=== PATIENT | male | born 1935 | race Caucasian/White ===

== ENCOUNTER 2016-09-25 23:30 | Emergency (ER) | payer MEDICARE, BC ==
[2016-09-25 23:37] VITALS: RESP 18
--- NOTE | 2016-09-26 00:12 | ED ---
[id number] 4d pain in chest & both arms Time Seen by Provider: 09/25/16 23:41 Source: patient, RN notes reviewed Mode of arrival: wheelchair Limitations: no limitations - History of Present Illness Initial Comments: This patient is an 80-year-old man who states that about 1-2 hours ago he was watching football game and experienced a "funny feeling" in his left upper chest. He is not able to characterize this well. He states that it was mild intensity, and lasted for a few minutes, probably less than 5. This feeling was accompanied by a feeling of numbness to both arms. He did not have any other associated symptoms. MD Complaint: chest pain Onset/Timin -: hour(s) Onset: during rest Pain Location: substernal Pain Radiation: RUE, LUE Severity: mild Quality: other Consistency: now resolved Improves With: nothing Worsens With: nothing - Related Data Home Medications Medication Instructions Recorded Confirmed Aspirin EC [Ecotrin Low Dose] 81 mg PO DAILY 05/04/14 09/25/16 Atorvastatin Calcium [Lipitor] 20 mg PO HS 05/04/14 09/25/16 Furosemide [Lasix] 20 mg PO DAILY 05/04/14 09/25/16 Nitroglycerin Sl Tabs [Nitrostat] 0.4 mg SUBLINGUAL Q5M PRN 05/04/14 09/25/16 Potassium Gluconate 99 mg PO DAILY 05/04/14 09/25/16 Acetaminophen Tab [Tylenol Tab] 500 mg PO BID PRN 12/14/15 09/25/16 Lisinopril [Prinivil] 10 mg PO DAILY 12/14/15 09/25/16 Atenolol [Tenormin] 12.5 mg PO DAILY 07/27/16 09/25/16 Mirabegron [Myrbetriq] 50 mg PO DAILY 09/25/16 09/25/16 Tamsulosin [Flomax] 0.4 mg PO DAILY 09/25/16 09/25/16 Previous Rx's Medication Instructions Recorded amLODIPine [Norvasc] 10 mg PO DAILY #30 tab 12/29/14 Allergies Allergy/AdvReac Type Severity Reaction Status Date / Time No Known Allergies Allergy Verified 09/25/16 23:37 Review of Systems ROS Statement: Those systems with pertinent positive or pertinent negative responses have been documented in the HPI. ROS Other: All systems not noted in ROS Statement are negative. Constitutional: Denies: fever, chills, weakness ENT: Denies: throat pain Respiratory: Denies: cough, dyspnea Cardiovascular: Reports: chest pain. Denies: palpitations, orthopnea, edema, syncope Gastrointestinal: Denies: abdominal pain, nausea, vomiting, melena, hematochezia Musculoskeletal: Denies: back pain Skin: Denies: rash Neurological: Denies: headache, weakness, numbness Past Medical History Past Medical History: Atrial Fibrillation, Coronary Artery Disease (CAD), Cancer , Hyperlipidemia, Hypertension, Pneumonia Additional Past Medical History / Comment(s): Other HX: Bladder cancer with recent scope with lesions removed and is to have TB virus instilled into his bladder starting December, ulloa's palsy, UTI in April 2014, pneumonia yrs ago. History of Any Multi-Drug Resistant Organisms: None Reported Past Surgical History: Appendectomy, Heart Catheterization, Heart Catheterization With Stent, Joint Replacement Additional Past Surgical History / Comment(s): 10/03/08 PTCA with stenting of LAD , partial LEFT KNEE REPLACEMENT, BLADDER SCOPE recently. Past Anesthesia/Blood Transfusion Reactions: No Reported Reaction Date of Last Stent Placement:: 10/03/08 Past Psychological History: No Psychological Hx Reported Additional Psychological History / Comment(s): Pt lives alone. He is independent. Pt drives a car. He uses no assistive devices and has no home health agencies coming into the home. Smoking Status: Former smoker Past Alcohol Use History: Rare Past Drug Use History: None Reported - Past Family History Father Family Medical History: Coronary Artery Disease (CAD), Myocardial Infarction ([place] ) (Father at age of 63 from myocardial infarction) Mother Family Medical History: CVA/TIA (Mother at age 65 from CVA) Brother(s) Family Medical History: Pulmonary Embolus (He had one brother who from pulmonary embolism at the age of 61 after knee surgery) Sister(s) Family Medical History: No Reported History (He had 3 sisters one of his sister from back trouble.) Daughter(s) Family Medical History: No Reported History (Patient has one daughter no major medical problems) Son(s) Family Medical History: No Reported History (Patient has one son no major medical problems.) General Exam Limitations: no limitations General appearance: alert, in no apparent distress Head exam: Present: atraumatic, normocephalic Eye exam: Present: normal appearance. Absent: scleral icterus, conjunctival injection Neck exam: Present: normal inspection Respiratory exam: Present: rales (Bilateral bases). Absent: respiratory distress, wheezes, rhonchi, stridor Cardiovascular Exam: Present: regular rate, normal rhythm, normal heart sounds. Absent: systolic murmur, diastolic murmur, rubs, gallop GI/Abdominal exam: Present: soft. Absent: distended, tenderness, guarding, rebound, mass Extremities exam: Present: normal inspection, normal capillary refill, pedal edema (Bilateral pitting edema to below the knee.). Absent: calf tenderness Back exam: Present: normal inspection. Absent: CVA tenderness (R), CVA tenderness (L) Neurological exam: Present: alert Skin exam: Present: warm, dry, intact, normal color. Absent: rash Course Vital Signs 09/25/16 09/26/16 09/26/16 23:34 00:30 01:42 Temperature 97.9 F 97.8 F Pulse Rate 60 66 61 Respiratory 18 18 18 Rate Blood Pressure 190/82 150/69 180/79 O2 Sat by Pulse 98 96 95 Oximetry Chest Pain MDM - MDM Patient's an 80-year-old man with what appears to be an anginal episode. I did recommend admission, but the patient is refusing, stating that he feels back at his baseline. He does agree to return should any symptoms recur and is going to follow-up with cardiology. Discussed risks of leaving at this point and patient aware and accepting of this. Disposition Clinical Impression: Angina pectoris Disposition: HOME SELF-CARE Condition: Fair Instructions: Angina (ED) Referrals: Jose Carlos Hicks MD [Primary Care Provider] - 1-2 days
[2016-09-26 00:15] LABS: Basophils % (A) 1 %; CH 30.4; CHCM 33.1; Eosinophils # (A) 0.1 k/uL (0-0.7); Eosinophils % (A) 1 %; HCT 35.4 % (39.0-53.0); HDW 2.56; HGB 11.6 gm/dL (13.0-17.5); Luc # (Auto) 0.09; Luc % (Auto) 2; Lymphocytes # (A) 0.9 k/uL (1.0-4.8); Lymphocytes % (A) 19 %; MCH 30.2 pg (25.0-35.0); MCHC 32.7 g/dL (31.0-37.0); MCV 92.1 fL (80.0-100.0); Mean Platelet Volume 7.7; Monocytes # (A) 0.4 k/uL (0-1.0); Monocytes % (A) 7 %; Neutrophils # (A) 3.4 k/uL (1.3-7.7); Neutrophils % (A) 70 %; RBC 3.84 m/uL (4.30-5.90); RDW 13.9 % (11.5-15.5); WBC 4.8 k/uL (3.8-10.6)
[2016-09-26 00:28] LABS: Appearance,Urine Clear (Clear); Bacteria,Urine Rare /hpf; Bilirubin,Urine Negative (Negative); Glucose,Urine (UA) Negative (Negative); Ketones,Urine Negative (Negative); Leukocyte Esterase,Urine Negative (Negative); Nitrite,Urine Negative (Negative); Particle Count 534; Protein,Urine Negative (Negative); RBC,Urine 8 /hpf (0-5); Specific Gravity,Urine 1.009 (1.001-1.035); Squamous Epithelial Cell,Urine <1 /hpf (0-4); UA Billing (MACRO vs. MICRO) MICRO; Urobilinogen,Urine <2.0 mg/dL (<2.0); WBC,Urine 6 /hpf (0-5)
[2016-09-26 00:30] LABS: Calcium 9.3 mg/dL (8.4-10.2); Magnesium 1.9 mg/dL (1.6-2.3); Potassium 4.6 mmol/L (3.5-5.1); Total Bilirubin 1.4 mg/dL (0.2-1.3); Total Protein 6.8 g/dL (6.3-8.2)
--- NOTE | 2016-09-26 00:33 | XR ---
EXAMINATION TYPE: XR chest 1V portable DATE OF EXAM: 09/26/2016 12:27 AM COMPARISON: 08-10 HISTORY: Chest pain TECHNIQUE: Single frontal view of the chest is obtained. FINDINGS: Heart is enlarged. There is no heart failure. Lungs are clear of consolidation. There is a calcified granuloma in the left midlung. There are no hilar masses. There is left axillary pacemaker with the lead tip in the right ventricle. IMPRESSION: Cardiomegaly. No active cardiopulmonary disease. No change.
[2016-09-26 00:42] LABS: INR 1.1 (<1.1); Partial Thromboplastin Time 23.6 sec (22.0-30.0); Prothrombin Time 10.6 sec (9.0-12.0)
[2016-09-26 00:54] LABS: Creatine Kinase MB 1.5 ng/mL (0.0-2.4); Troponin I 0.012 ng/mL (0.000-0.034)
[2016-09-26 01:43] VITALS: BP 180/79; PULSE 61; TEMP 97.8
== END 2016-09-26 01:43 | disposition home or self-care (01) ==
LOC: EC 23:30
DX: I25.119 Atherosclerotic heart disease of native coronary artery with unspecified angina pectoris (principal); I48.91 Unspecified atrial fibrillation; E78.5 Hyperlipidemia, unspecified; I10 Essential (primary) hypertension; Z79.82 Long term (current) use of aspirin; Z79.899 Other long term (current) drug therapy; Z87.891 Personal history of nicotine dependence; Z85.51 Personal history of malignant neoplasm of bladder; Z95.5 Presence of coronary angioplasty implant and graft
CPT/HCPCS: 36415; 71010; 80053; 81001; 82550; 82553; 83735; 84484; 85025; 85610; 85730; 93005; 99285

== ENCOUNTER 2016-10-02 11:53 | Observation (INO) | payer MEDICARE, BC ==
[2016-10-02 12:34] LABS: Basophils % (A) 0 %; CH 30.7; CHCM 33.2; Eosinophils % (A) 1 %; HDW 2.61; HGB 10.9 gm/dL (13.0-17.5); Luc # (Auto) 0.04; Luc % (Auto) 1; Lymphocytes # (A) 0.6 k/uL (1.0-4.8); Lymphocytes % (A) 13 %; MCH 29.8 pg (25.0-35.0); MCV 93.1 fL (80.0-100.0); Mean Platelet Volume 8.3; Monocytes # (A) 0.3 k/uL (0-1.0); Monocytes % (A) 7 %; Neutrophils # (A) 3.5 k/uL (1.3-7.7); Neutrophils % (A) 78 %; RBC 3.65 m/uL (4.30-5.90); RDW 13.9 % (11.5-15.5); WBC 4.5 k/uL (3.8-10.6); WBC (Perox) 4.46
[2016-10-02 12:39] LABS: INR 1.1 (<1.1); Partial Thromboplastin Time 24.1 sec (22.0-30.0); Prothrombin Time 10.8 sec (9.0-12.0)
[2016-10-02 12:41] LABS: ALT 27 U/L (21-72); AST 19 U/L (17-59); Alkaline Phosphatase 63 U/L (38-126); Amylase <30 U/L (30-110); Anion Gap 11 mmol/L; Blood Urea Nitrogen 22 mg/dL (9-20); Calcium 8.9 mg/dL (8.4-10.2); Carbon Dioxide 25 mmol/L (22-30); Chloride 108 mmol/L (98-107); Glucose 150 mg/dL (74-99); Magnesium 1.8 mg/dL (1.6-2.3); Non-African American GFR(MDRD) 42 (>60 ml/min/1.73 sqM); Potassium 4.4 mmol/L (3.5-5.1); Sodium 144 mmol/L (137-145); Total Bilirubin 1.6 mg/dL (0.2-1.3); Total Protein 6.3 g/dL (6.3-8.2)
--- NOTE | 2016-10-02 12:42 | ED ---
Chest Pain HPI - General Chief Complaint: Chest Pain Stated Complaint: CHEST PAIN Time Seen by Provider: 10/02/16 12:00 Source: patient, RN notes reviewed Mode of arrival: wheelchair Limitations: no limitations - History of Present Illness Initial Comments: This 80-year-old male with a history of heart disease atrial fibrillation presents with complaints of the onset of chest pain about one hour ago. It is gone now he states initially it was 2-4/10 severity now it's gone he denies any sweats fevers chills nausea vomiting sweats or other symptoms with it. He did state it was only a brief twinge of pain. MD Complaint: chest pain - Related Data Home Medications Medication Instructions Recorded Confirmed Aspirin EC [Ecotrin Low Dose] 81 mg PO DAILY 05/04/14 10/02/16 Atorvastatin Calcium [Lipitor] 20 mg PO HS 05/04/14 10/02/16 Furosemide [Lasix] 10 mg PO DAILY 05/04/14 10/02/16 Nitroglycerin Sl Tabs [Nitrostat] 0.4 mg SUBLINGUAL Q5M PRN 05/04/14 10/02/16 Potassium Gluconate 99 mg PO DAILY 05/04/14 10/02/16 Lisinopril [Prinivil] 10 mg PO DAILY 12/14/15 10/02/16 Atenolol [Tenormin] 12.5 mg PO DAILY 07/27/16 10/02/16 Mirabegron [Myrbetriq] 50 mg PO DAILY 09/25/16 10/02/16 Tamsulosin [Flomax] 0.4 mg PO DAILY 09/25/16 10/02/16 Previous Rx's Medication Instructions Recorded amLODIPine [Norvasc] 10 mg PO DAILY #30 tab 12/29/14 Allergies Allergy/AdvReac Type Severity Reaction Status Date / Time No Known Allergies Allergy Verified 10/02/16 12:30 Review of Systems ROS Statement: Those systems with pertinent positive or pertinent negative responses have been documented in the HPI. ROS Other: All systems not noted in ROS Statement are negative. EKG Findings - EKG Results: EKG: interpreted by KANDACE (Pacemaker rhythm 67 QRS duration 192 QT/QTC of 494/ 521 some artifact is present no acute changes) Past Medical History Past Medical History: Atrial Fibrillation, Coronary Artery Disease (CAD), Cancer , Chest Pain / Angina, Hyperlipidemia, Hypertension, Pneumonia Additional Past Medical History / Comment(s): Other HX: Bladder cancer with recent scope with lesions removed and is to have TB virus instilled into his bladder starting December, ulloa's palsy, UTI in April 2014, pneumonia yrs ago. History of Any Multi-Drug Resistant Organisms: None Reported Past Surgical History: Appendectomy, Heart Catheterization, Heart Catheterization With Stent, Joint Replacement, Pacemaker Additional Past Surgical History / Comment(s): 10/03/08 PTCA with stenting of LAD , partial LEFT KNEE REPLACEMENT, BLADDER SCOPE recently. Past Anesthesia/Blood Transfusion Reactions: No Reported Reaction Date of Last Stent Placement:: 10/03/08 Past Psychological History: No Psychological Hx Reported Additional Psychological History / Comment(s): Pt lives alone. He is independent. Pt drives a car. He uses no assistive devices and has no home health agencies coming into the home. Smoking Status: Former smoker Past Alcohol Use History: Rare Past Drug Use History: None Reported - Past Family History Father Family Medical History: Coronary Artery Disease (CAD), Myocardial Infarction ([place] ) (Father at age of 63 from myocardial infarction) Mother Family Medical History: CVA/TIA (Mother at age 65 from CVA) Brother(s) Family Medical History: Pulmonary Embolus (He had one brother who from pulmonary embolism at the age of 61 after knee surgery) Sister(s) Family Medical History: No Reported History (He had 3 sisters one of his sister from back trouble.) Daughter(s) Family Medical History: No Reported History (Patient has one daughter no major medical problems) Son(s) Family Medical History: No Reported History (Patient has one son no major medical problems.) General Exam - General Exam Comments Initial Comments: Is a well-developed well-nourished awake alert oriented history male Limitations: no limitations General appearance: alert, in no apparent distress Head exam: Present: atraumatic, normocephalic, normal inspection Eye exam: Present: normal appearance, PERRL, EOMI. Absent: scleral icterus, conjunctival injection, periorbital swelling ENT exam: Present: normal exam, mucous membranes moist Neck exam: Present: normal inspection. Absent: tenderness, meningismus, lymphadenopathy Respiratory exam: Present: normal lung sounds bilaterally. Absent: respiratory distress, wheezes, rales, rhonchi, stridor Cardiovascular Exam: Present: regular rate, normal rhythm, normal heart sounds. Absent: systolic murmur, diastolic murmur, rubs, gallop, clicks GI/Abdominal exam: Present: soft, normal bowel sounds. Absent: distended, tenderness, guarding, rebound, rigid Extremities exam: Present: normal inspection, full ROM, normal capillary refill. Absent: tenderness, pedal edema, joint swelling, calf tenderness Back exam: Present: normal inspection Neurological exam: Present: alert, oriented X3, CN II-XII intact Psychiatric exam: Present: normal affect, normal mood Skin exam: Present: warm, dry, intact, normal color. Absent: rash Course Vital Signs 10/02/16 10/02/16 11:58 13:25 Pulse Rate 59 L 61 Respiratory 16 18 Rate Blood Pressure 184/76 156/71 O2 Sat by Pulse 96 97 Oximetry - Reevaluation(s) Reevaluation #1: 10/02/16 13:34 Review the x-ray shows no acute findings patient does have chronic stable findings. Chest Pain MDM - MDM I did review the x-ray report no acute findings patient will be admitted I did discuss the case with the hospitalist. Patient will be admitted with cardiology consultation he does request Dr. Anderson who he has seen before he currently is pain-free. Disposition Clinical Impression: Unstable angina pectoris, Chest pain Disposition: ADMITTED IP TO THIS [facility] Condition: Stable
--- NOTE | 2016-10-02 12:47 | XR ---
EXAMINATION TYPE: XR chest 2V DATE OF EXAM: 10/02/2016 12:34 PM COMPARISON: 09/25/2016 HISTORY: Weakness shortness of breath FINDINGS: The lungs are clear and there is no pneumothorax, pleural effusion, or focal pneumonia. Hypertrophic change of the spine. Marked cardiomegaly and cardiac device are stable. Calcified granul christi left upper lobe. Arthropathy shoulders. Stable mild thickening of the minor fissure. IMPRESSION: 1. Stable severe cardiomegaly.
[2016-10-02 12:54] LABS: Creatine Kinase 52 U/L (55-170)
[2016-10-02 13:08] LABS: Creatine Kinase MB 1.2 ng/mL (0.0-2.4); Troponin I <0.012 ng/mL (0.000-0.034)
[2016-10-02] MEDS ORDERED: NITROGLYCERIN SL TABS 0.4 MG TAB SUBLINGUAL PRN ×2 (15:39→15:42)
[2016-10-02] MEDS ORDERED: HEPARIN SODIUM,PORCINE 5,000 UNIT/ML 1 ML VIAL IV ONE (15:39)
[2016-10-02] MEDS: SODIUM CHLORIDE 0.9% 1,000 ML IV SCH (15:56)
[2016-10-02] MEDS: HEPARIN SODIUM,PORCINE/D5W PMX 25,000 UNIT in DEXTROSE/WATER 1 500ML.BAG IV SCH (15:57)
[2016-10-02] MEDS: NITROGLYCERIN OINT 1 INCH/GM PACKET TOPICAL SCH (19:32)
[2016-10-02 20:15] LABS: Creatine Kinase MB 1.1 ng/mL (0.0-2.4); Troponin I 0.013 ng/mL (0.000-0.034)
[2016-10-02] MEDS ORDERED: ATORVASTATIN 20 MG TAB PO SCH (21:00)
[2016-10-02 23:57] LABS: Troponin I 0.016 ng/mL (0.000-0.034)
[2016-10-03] MEDS: NITROGLYCERIN OINT 1 INCH/GM PACKET TOPICAL SCH ×3 (00:08→12:17)
[2016-10-03 07:41] LABS: Cholesterol 97 mg/dL (<200); HDL Cholesterol 50 mg/dL (40-60); Triglycerides 47 mg/dL (<150)
[2016-10-03 07:50] VITALS: RESP 18
[2016-10-03] MEDS ORDERED: AMINOPHYLLINE 500 MG/20 ML VIAL IV PRN (08:42)
[2016-10-03] MEDS ORDERED: REGADENOSON 0.4 MG/5 ML SYRINGE IV ONE (08:42)
--- NOTE | 2016-10-03 08:42 | P.CRDCN ---
History of Present Illness Consult date: 10/03/16 Chief complaint: chest pain History of present illness: This is a pleasant 80-year-old gentleman who sees Dr. VC Castro as an outpatient with a past medical history significant for CAD and prior stenting of the LAD was performed in 2008, hypertension, dyslipidemia, chronic atrial fibrillation, and permanent pacemaker implantation presented to the hospital complaining of chest discomfort. He was in his usual state of health until a week ago when he was shopping and started experiencing discomfort in the chest lasted about 10 minutes. He did good until yesterday when he experienced another episode of chest discomfort was similar feature. The EKG showed underlying atrial fibrillation with ventricular paced rhythm. The cardiac enzymes came in to be unremarkable. I am proceeding with a Lexiscan Cardiolite stress test and I will continue following up with him Past Medical History Past Medical History: Atrial Fibrillation, Coronary Artery Disease (CAD), Cancer , Chest Pain / Angina, Hyperlipidemia, Hypertension, Pneumonia Additional Past Medical History / Comment(s): Other HX: Bladder cancer with recent scope with lesions removed and is to have TB virus instilled into his bladder starting December, ulloa's palsy, UTI in April 2014, pneumonia yrs ago. History of Any Multi-Drug Resistant Organisms: None Reported Past Surgical History: Appendectomy, Heart Catheterization, Heart Catheterization With Stent, Joint Replacement, Pacemaker Additional Past Surgical History / Comment(s): 10/03/08 PTCA with stenting of LAD , partial LEFT KNEE REPLACEMENT, BLADDER SCOPE recently. Past Anesthesia/Blood Transfusion Reactions: No Reported Reaction Date of Last Stent Placement:: 10/03/08 Type of Cardiac Device: Permanent Pacemaker Device Placement Date:: 2015 Past Psychological History: No Psychological Hx Reported Additional Psychological History / Comment(s): Pt lives alone. He is independent. Pt drives a car. He uses no assistive devices and has no home health agencies coming into the home. Smoking Status: Former smoker Past Alcohol Use History: Rare Past Drug Use History: None Reported - Past Family History Father Family Medical History: Coronary Artery Disease (CAD), Myocardial Infarction ([place] ) Mother Family Medical History: CVA/TIA Brother(s) Family Medical History: Pulmonary Embolus Sister(s) Family Medical History: No Reported History Daughter(s) Family Medical History: No Reported History Son(s) Family Medical History: No Reported History Medications and Allergies Home Medications Medication Instructions Recorded Confirmed Type Aspirin EC [Ecotrin Low Dose] 81 mg PO DAILY 05/04/14 10/02/16 History Atorvastatin Calcium [Lipitor] 20 mg PO HS 05/04/14 10/02/16 History Furosemide [Lasix] 10 mg PO DAILY 05/04/14 10/02/16 History Nitroglycerin Sl Tabs [Nitrostat] 0.4 mg SUBLINGUAL Q5M PRN 05/04/14 10/02/16 History Potassium Gluconate 99 mg PO DAILY 05/04/14 10/02/16 History Lisinopril [Prinivil] 10 mg PO DAILY 12/14/15 10/02/16 History Atenolol [Tenormin] 12.5 mg PO DAILY 07/27/16 10/02/16 History Mirabegron [Myrbetriq] 50 mg PO DAILY 09/25/16 10/02/16 History Tamsulosin [Flomax] 0.4 mg PO DAILY 09/25/16 10/02/16 History Allergies Allergy/AdvReac Type Severity Reaction Status Date / Time No Known Allergies Allergy Verified 10/02/16 12:30 Physical Exam Vitals: Vital Signs Temp Pulse Pulse Pulse Resp BP BP 10/03/16 07:50 98.1 F 60 18 166/75 10/03/16 04:00 98.0 F 61 16 154/70 10/03/16 00:00 16 10/02/16 23:44 98.1 F 61 16 149/68 10/02/16 20:00 18 10/02/16 19:48 98.0 F 59 L 16 173/81 10/02/16 16:36 97.7 F 63 18 173/83 10/02/16 15:55 98.1 F 60 18 179/81 Pulse Ox 10/03/16 07:50 95 10/03/16 04:00 92 L 10/03/16 00:00 10/02/16 23:44 95 10/02/16 20:00 10/02/16 19:48 94 L 10/02/16 16:36 94 L 10/02/16 15:55 95 Intake and Output 10/02/16 10/03/16 10/03/16 22:59 06:59 14:59 Intake Total 236 162.112 Balance 236 162.112 Intake: Intake, IV Titration 162.112 Amount Heparin Sodium,Porcine/ 162.112 D5w Pmx 25,000 unit In Dextrose/Water 1 500ml. bag @ 7.8 UNITS/KG/HR 19. 81 mls/hr IV .Q24H [facility] Rx #:[id number] Oral 236 Other: Voiding Method Toilet Toilet # Voids 1 Weight 130 kg - Constitutional General appearance: no acute distress - Respiratory Respiratory: bilateral: diminished - Cardiovascular Rhythm: regular Heart sounds: normal: S1, S2 Results 10/02/16 12:17 10/02/16 12:17 Cardiac Enzymes 10/02/16 10/02/16 Range/Units 19:25 23:04 CK-MB (CK-2) 1.1 1.0 (0.0-2.4) ng/mL Troponin I 0.013 0.016 (0.000-0.034) ng/mL Coagulation 10/02/16 10/03/16 Range/Units 23:04 06:44 APTT 30.7 H 36.9 H (22.0-30.0) sec Lipids 10/03/16 Range/Units 06:44 Triglycerides 47 (<150) mg/dL Cholesterol 97 (<200) mg/dL HDL Cholesterol 50 (40-60) mg/dL Current Medications Generic Name Dose Route Start Last Admin Trade Name Freq PRN Reason Stop Dose Admin Amlodipine Besylate 10 mg 10/03/16 09:00 Norvasc PO DAILY [facility] Aspirin 81 mg 10/03/16 09:00 Aspirin PO DAILY [facility] Atenolol 12.5 mg 10/03/16 09:00 Tenormin PO DAILY [facility] Atorvastatin Calcium 20 mg 10/02/16 21:00 10/02/16 19:52 Lipitor PO 20 mg HS [facility] Administration Furosemide 10 mg 10/03/16 09:00 Lasix PO DAILY [facility] Heparin Sodium/Dextrose 25,000 500 mls @ 19.81 mls/hr 10/02/16 15:45 00:08 unit/ IV Solution IV 10.8 units/kg/hr .Q24H [facility] 27.43 mls/hr Protocol Titration 7.8 UNITS/KG/HR Sodium Chloride 1,000 mls @ 20 mls/hr 10/02/16 15:45 10/02/16 15:56 Saline 0.9% IV 20 mls/hr .Q24H [facility] Administration Lisinopril 10 mg 10/03/16 09:00 Zestril PO DAILY [facility] Nitroglycerin 1 inch 10/02/16 18:00 10/03/16 06:16 Nitro-Bid Oint TOPICAL Not Given Q6HR [facility] Nitroglycerin 0.4 mg 10/02/16 15:42 Nitrostat SUBLINGUAL Q5M PRN Chest Pain Oxybutynin Chloride 10 mg 10/03/16 09:00 Ditropan Xl PO DAILY [facility] Potassium Chloride 2.53 meq 10/03/16 09:00 Potassium Chloride Oral Liquid PO DAILY [facility] Tamsulosin HCl 0.4 mg 10/03/16 09:00 Flomax PO DAILY [facility] Intake and Output 10/02/16 10/03/16 10/03/16 22:59 06:59 14:59 Intake Total 236 162.112 Balance 236 162.112 Intake: Intake, IV Titration 162.112 Amount Heparin Sodium,Porcine/ 162.112 D5w Pmx 25,000 unit In Dextrose/Water 1 500ml. bag @ 7.8 UNITS/KG/HR 19. 81 mls/hr IV .Q24H [facility] Rx #:[id number] Oral 236 Other: Voiding Method Toilet Toilet # Voids 1 Weight 130 kg Assessment and Plan Plan: Assessment #1 recurrent chest discomfort #2 CAD with prior LAD stenting #3 chronic atrial fibrillation #4 multiple comorbid conditions Plan #1 proceeding with a [facility] Cardiolite #2 follow-up with the patient
[2016-10-03] MEDS ORDERED: POTASSIUM CHLORIDE ORAL LIQUID 40 MEQ/30 ML CUP PO SCH (09:00)
[2016-10-03] MEDS ORDERED: OXYBUTYNIN XL 5 MG TAB.ER.24 PO SCH (09:00)
[2016-10-03] MEDS ORDERED: ASPIRIN 81 MG CHEW PO SCH (09:00)
[2016-10-03] MEDS ORDERED: FUROSEMIDE 10 MG TAB PO SCH (09:00)
[2016-10-03] MEDS ORDERED: TAMSULOSIN 0.4 MG CAP.ER.24H PO SCH (09:00)
[2016-10-03] MEDS ORDERED: amLODIPine 10 MG TAB PO SCH (09:00)
[2016-10-03] MEDS ORDERED: LISINOPRIL 10 MG TAB PO SCH (09:00)
[2016-10-03] MEDS ORDERED: ASPIRIN 325 MG TAB PO SCH (09:00)
[2016-10-03] MEDS ORDERED: ATENOLOL 12.5 MG TAB PO SCH (09:00)
--- NOTE | 2016-10-03 11:57 | NM ---
EXAMINATION TYPE: NM stress lexiscan cardiolite DATE OF EXAM: 10/03/2016 11:45 AM COMPARISON: NONE HISTORY: History of tobacco use versus last 6 months, hypertension, pacemaker, hypercholesteremia, pr ior catheterization with single vessel angioplasty, and angina presents with chest pain. TECHNIQUE: After the intravenous administration of 10.42 mCi Tc 99m Sestamibi - Cardiolite resting S PECT images acquired 55 minutes post injection. The patient received 0.4mg Lexiscan, 27.1 mCi Tc 99m Sestamibi - Stress images obtained [address] injection FINDINGS: Review of stress and rest SPECT images demonstrates poor uptake involving inferior left ventricular w all on short axis and vertical long axis views mid segment towards the apex suggestive of old infarct .. Gated analysis shows fairly satisfactory and uniform wall motion with an estimated left ventricul ar ejection fraction of 48 %, slightly diminished from normal range. End-diastolic volume is abnormal ly elevated at 220 cc. Underlying dilated cardiomyopathy is suspected. IMPRESSION: No scintigraphic evidence for reversible ischemia. 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 Clinical, EKG, and echo correlation advised.
--- NOTE | 2016-10-03 12:24 | P.HPIM ---
History of Present Illness H&P Date: 10/03/15 Chief Complaint: Chest pain This is an 80-year-old gentleman one of Dr. Hicks with a previous medical history significant for coronary artery disease status post percutaneous coronary intervention and stent placement of the LAD in 2008 about 7 years ago, hypertension and hypertensive cardiovascular disease, hyperlipidemia, chronic atrial fibrillation, chronic low back pain, patient was brought into the emergency department at [facility] yesterday because of left-sided chest pain associated with increased shortness of breath, patient was admitted to the hospital for evaluation, patient was already seen by cardiology and he was sent down for Lexiscan Stress test for further evaluation of his coronary artery disease. Review of Systems Constitutional: Denies chills, Denies chronic headaches, Denies lethargy, Denies malaise, Denies weight gain, Denies weight loss Eyes: denies blurred vision, denies bulging eye, denies decreased vision, denies diplopia, denies discharge Ears: deny: decreased hearing Ears, nose, mouth and throat: Denies dysphagia, Denies neck lump, Denies swelling in throat, Denies sore throat Cardiovascular: Reports chest pain, Reports dyspnea on exertion, Reports shortness of breath, Denies decreased exercise tolerance, Denies edema, Denies high blood pressure, Denies irregular heart beat, Denies phlebitis, Denies rapid heart beat, Denies syncope Respiratory: Denies congestion, Denies cough, Denies cough with sputum, Denies hemoptysis, Denies home oxygen, Denies respiratory infections, Denies sleep apnea, Denies snoring, Denies wheezing Gastrointestinal: Denies abdominal pain, Denies bloating, Denies BRBPR, Denies diarrhea, Denies heartburn, Denies hematemesis, Denies melena, Denies nausea, Denies vomiting Genitourinary: Denies dysuria, Denies nocturia, Denies polyuria Musculoskeletal: Denies myalgias Musculoskeletal: absent: ankle pain, ankle stiffness, ankle swelling, elbow pain , elbow stiffness, elbow swelling, foot pain, foot stiffness, foot swelling, hand pain, hand stiffness, hand swelling, hip pain, hip stiffness, hip swelling , knee pain, knee stiffness, knee swelling, shoulder pain, shoulder stiffness, shoulder swelling, wrist pain, wrist stiffness, wrist swelling Integumentary: Denies pruritus, Denies rash Neurological: Denies numbness, Denies weakness Psychiatric: Denies anxiety, Denies depression Endocrine: Denies fatigue, Denies weight change Past Medical History Past Medical History: Atrial Fibrillation, Coronary Artery Disease (CAD), Cancer , Chest Pain / Angina, Hyperlipidemia, Hypertension, Osteoarthritis (OA), Pneumonia, Renal Disease Additional Past Medical History / Comment(s): Other HX: Bladder cancer with recent scope with lesions removed and is to have TB virus instilled into his bladder starting December, delacruz's palsy, UTI in April 2014, pneumonia yrs ago, chronic kidney disease stage III. History of Any Multi-Drug Resistant Organisms: None Reported Past Surgical History: Appendectomy, Heart Catheterization, Heart Catheterization With Stent, Joint Replacement, Pacemaker Additional Past Surgical History / Comment(s): 10/03/08 PTCA with stenting of LAD , partial LEFT KNEE REPLACEMENT, BLADDER SCOPE recently. Past Anesthesia/Blood Transfusion Reactions: No Reported Reaction Date of Last Stent Placement:: 10/03/08 Type of Cardiac Device: Permanent Pacemaker Device Placement Date:: 2015 Past Psychological History: No Psychological Hx Reported Additional Psychological History / Comment(s): Pt lives alone. He is independent. Pt drives a car. He uses no assistive devices and has no home health agencies coming into the home. Smoking Status: Former smoker (Patient used to smoke about half pack every day he smoked for 50 years and quit in the 50s) Past Alcohol Use History: Rare Past Drug Use History: None Reported - Past Family History Father Family Medical History: Coronary Artery Disease (CAD), Myocardial Infarction ([place] ) (Father at age of 63 from [place].) Mother Family Medical History: CVA/TIA (Mother at age 65 from CVA.) Brother(s) Family Medical History: Pulmonary Embolus (Patient had one brother who at the age of 61 from pulmonary embolism.) Sister(s) Family Medical History: No Reported History (Patient had 3 sisters one of his sisters from of back trouble.) Daughter(s) Family Medical History: No Reported History (Patient has one daughter no major medical problems) Son(s) Family Medical History: No Reported History (Patient has one son no major medical problems) Medications and Allergies Home Medications Medication Instructions Recorded Confirmed Type Aspirin EC [Ecotrin Low Dose] 81 mg PO DAILY 05/04/14 10/02/16 History Atorvastatin Calcium [Lipitor] 20 mg PO HS 05/04/14 10/02/16 History Furosemide [Lasix] 10 mg PO DAILY 05/04/14 10/02/16 History Nitroglycerin Sl Tabs [Nitrostat] 0.4 mg SUBLINGUAL Q5M PRN 05/04/14 10/02/16 History Potassium Gluconate 99 mg PO DAILY 05/04/14 10/02/16 History Lisinopril [Prinivil] 10 mg PO DAILY 12/14/15 10/02/16 History Atenolol [Tenormin] 12.5 mg PO DAILY 07/27/16 10/02/16 History Mirabegron [Myrbetriq] 50 mg PO DAILY 09/25/16 10/02/16 History Tamsulosin [Flomax] 0.4 mg PO DAILY 09/25/16 10/02/16 History Allergies Allergy/AdvReac Type Severity Reaction Status Date / Time No Known Allergies Allergy Verified 10/02/16 12:30 Physical Exam Vitals: Vital Signs Temp Pulse Pulse Pulse Resp BP BP 10/03/16 07:50 98.1 F 60 18 166/75 10/03/16 04:00 98.0 F 61 16 154/70 10/03/16 00:00 16 10/02/16 23:44 98.1 F 61 16 149/68 10/02/16 20:00 18 10/02/16 19:48 98.0 F 59 L 16 173/81 10/02/16 16:36 97.7 F 63 18 173/83 10/02/16 15:55 98.1 F 60 18 179/81 Pulse Ox 10/03/16 07:50 95 10/03/16 04:00 92 L 10/03/16 00:00 10/02/16 23:44 95 10/02/16 20:00 10/02/16 19:48 94 L 10/02/16 16:36 94 L 10/02/16 15:55 95 Intake and Output 10/02/16 10/03/16 10/03/16 22:59 06:59 14:59 Intake Total 236 162.112 Balance 236 162.112 Intake: Intake, IV Titration 162.112 Amount Heparin Sodium,Porcine/ 162.112 D5w Pmx 25,000 unit In Dextrose/Water 1 500ml. bag @ 7.8 UNITS/KG/HR 19. 81 mls/hr IV .Q24H LAS[facility] Rx #:[id number] Oral 236 Other: Voiding Method Toilet Toilet # Voids 1 Weight 130 kg - Constitutional General appearance: no acute distress - EENT Eyes: anicteric sclerae, PERRLA, no ptosis, no scleral icterus, normal appearance ENT: hearing grossly normal, normal oropharynx, no thrush Ears: bilateral: normal - Neck Neck: no lymphadenopathy, normal ROM, no rigidity, no stridor, no thyromegaly Carotids: bilateral: upstroke normal - Respiratory Respiratory: bilateral: diminished, negative: dullness, rales, rhonchi, wheezing , prolonged expiration, prolonged inspiration - Cardiovascular Rhythm: regularly irregular (Permanent pacemaker.) Heart sounds: normal: S1, S2 Abnormal Heart Sounds: systolic murmur - Gastrointestinal General gastrointestinal: normal bowel sounds, soft, no splenomegaly, no tenderness, no umbilical hernia, no ventral hernia - Integumentary Integumentary: normal, normal turgor - Neurologic Neurologic: CNII-XII intact - Musculoskeletal Musculoskeletal: strength equal bilaterally - Psychiatric Psychiatric: A&O x's 3, appropriate affect, intact judgment & insight Results CBC & Chem 7: 10/02/16 12:17 10/02/16 12:17 Labs: Abnormal Lab Results - Last 24 Hours (Table) 10/02/16 10/02/16 10/02/16 Range/Units 19:25 23:04 23:04 APTT 30.7 H (22.0-30.0) sec Total Creatine Kinase 48 L 48 L (55-170) U/L 10/03/16 Range/Units 06:44 APTT 36.9 H (22.0-30.0) sec Total Creatine Kinase (55-170) U/L Thrombosis Risk Factor Assmnt - DVT/VTE Prophylaxis DVT/VTE Prophylaxis: Pharmacologic Prophylaxis ordered - Choose All That Apply Any of the Below Risk Factors Present?: No Other Risk Factors: No Each Risk Factor Represents 3 Points: Age 75 years or older Other congenital or acquired thrombophilia - If yes, enter type in comment: No Thrombosis Risk Factor Assessment Total Risk Factor Score: 3 Thrombosis Risk Factor Assessment Level: Very Low Risk Assessment and Plan Plan: Assessment and plan: 1. Chest pain in a patient with a prior history of CAD post PCI of the LAD. Patient was admitted to the hospital, heparin drip, aspirin, cardiology evaluation appreciated, patient underwent Lexiscan Cardiolite stress test if that's came back negative patient can be discharged home with follow-up as an outpatient, if the stress test is positive patient will need a heart catheterization. 2. Coronary artery disease status post PCI and stent placement of the LAD back in 2008 at we'll continue the patient on aspirin 81 mg once every day, Plavix 75 mg orally once every day, continue patient on atenolol 12.5 mg orally once every day. 3. Hypertension and hypertensive cardiovascular disease. Continue atenolol 12.5 mg orally once every day, amlodipine 10 mg orally once every day. 4. Hyperlipidemia . continue the patient on Lipitor 20 mg orally once every day. 5. Bilateral lower extremity edema continue the patient on Lasix 10 mg once every day as well as potassium supplementation. 6. History of bladder cancer currently in remission under the care of urology status post BCG injection. 7. History of Delacruz's palsy. 8. History of prediabetes, low-carb diet. 9. Obesity with possible obstructive sleep apnea patient will need to go for polysomnogram as an outpatient. 10. Chronic kidney disease stage III. Stable at this time. 11. DVT prophylaxis. Currently on heparin drip. 12. Observation.
--- NOTE | 2016-10-03 12:36 | EST ---
DATE OF SERVICE: 10/03/16 AGE: 80Y SEX: M HT: 73" WT: 286 lbs. Protocol Amrit: Other: X Stage: Dur. of Exercise: *Heart Rate Blood Pressure *Rest: 66 Rest: 160/81 * *Max. Achieved: 71 Maximum BP: 165/85 85% PMHR: 118 100% PMHR: 139 *METS: INDICATIONS: Angina. MEDICATIONS: Baseline EKG revealed a ventricular paced rhythm with isolated PVCs. With Lexiscan administration, heart rate changed from 66 to 71 beats and blood pressure changed from 160/85 to 160/76. EKG remained inconclusive and patient was asymptomatic. IMPRESSION: 1. By EKG criteria, this is an inconclusive Lexiscan stress test because of resting EKG changes. 2. The nuclear scan results will be reported by the radiologist.
[2016-10-03 15:39] VITALS: BP 142/62; PULSE 60; TEMP 97.8
[2016-10-03] MEDS: SODIUM CHLORIDE 0.9% 1,000 ML IV SCH (17:15)
[2016-10-03] MEDS: HEPARIN SODIUM,PORCINE/D5W PMX 25,000 UNIT in DEXTROSE/WATER 1 500ML.BAG IV SCH (17:15)
== END 2016-10-03 17:02 | disposition home or self-care (01) ==
LOC: EC 11:53 → 3OBS 15:39
PROVIDERS: ADMIT Internal Medicine; ATTEND Internal Medicine
DX: R07.89 Other chest pain (principal); I25.10 Atherosclerotic heart disease of native coronary artery without angina pectoris; I13.10 Hypertensive heart and chronic kidney disease without heart failure, with stage 1 through stage 4 chronic kidney disease, or unspecified chronic kidney disease; N18.3 Chronic kidney disease, stage 3 (moderate); R60.0 Localized edema; E78.5 Hyperlipidemia, unspecified; R73.03 Prediabetes; I48.2 Chronic atrial fibrillation; E66.9 Obesity, unspecified; M54.5 Low back pain; G89.29 Other chronic pain; Z79.82 Long term (current) use of aspirin; Z79.899 Other long term (current) drug therapy; Z87.891 Personal history of nicotine dependence; Z95.0 Presence of cardiac pacemaker; Z85.51 Personal history of malignant neoplasm of bladder; Z95.5 Presence of coronary angioplasty implant and graft; Z96.652 Presence of left artificial knee joint; Z82.49 Family history of ischemic heart disease and other diseases of the circulatory system; Z82.3 Family history of stroke; Z68.37 Body mass index [BMI] 37.0-37.9, adult
CPT/HCPCS: 99285; 96365; 96376; 36415; 93005; 93017; 83880; 80061; 80053; 82150; 82550; 82553; 83690; 83735; 84484; 85025; 85610; 85730 ×2; 71020; 78452; G0378 ×2; A9500; J1644 ×2; J2785; 96366

== ENCOUNTER 2016-11-29 11:44 | Emergency (ER) | payer MEDICARE, BC ==
[2016-11-29] MEDS ORDERED: LIDOCAINE/EPINEPHR/TETRACAINE 5 ML BOTTLE TOPICAL ONE (12:54)
--- NOTE | 2016-11-29 13:06 | ED ---
Wound/Laceration HPI - General Chief Complaint: Wound/Laceration Stated Complaint: Sore on face/won't stop bleeding Time Seen by Provider: 11/29/16 12:40 Source: patient, RN notes reviewed Mode of arrival: ambulatory Limitations: no limitations - History of Present Illness Initial Comments: 81-year-old male presents to the emergency department with a chief complaint of the bleeding area to the right side of the face. Patient states hesmall scab to the right side of face he wash his face and broke the scab off with the wash cloth and has been bleeding ever since. Patient states just keeps leaning active.. Patient states he takes a baby aspirin but no other blood thinners. Patient states never anything like this before. Patient states he noticed over the last day or so. Patient states he is concerned due to the continued bleeding and he cannot get it stopped at home so he thought that he should be seen.Patient denies any recent fever, chills, shortness of breath, chest pain, back pain, abdominal pain, nausea vomiting, numbness or tingling, dysuria or hematuria, constipation or diarrhea, headaches or visual changes, or any other current symptoms. - Related Data Home Medications Medication Instructions Recorded Confirmed Aspirin EC [Ecotrin Low Dose] 81 mg PO DAILY 05/04/14 10/02/16 Atorvastatin Calcium [Lipitor] 20 mg PO HS 05/04/14 10/02/16 Furosemide [Lasix] 10 mg PO DAILY 05/04/14 10/02/16 Nitroglycerin Sl Tabs [Nitrostat] 0.4 mg SUBLINGUAL Q5M PRN 05/04/14 10/02/16 Potassium Gluconate 99 mg PO DAILY 05/04/14 10/02/16 Lisinopril [Prinivil] 10 mg PO DAILY 12/14/15 10/02/16 Atenolol [Tenormin] 12.5 mg PO DAILY 07/27/16 10/02/16 Mirabegron [Myrbetriq] 50 mg PO DAILY 09/25/16 10/02/16 Tamsulosin [Flomax] 0.4 mg PO DAILY 09/25/16 10/02/16 Previous Rx's Medication Instructions Recorded amLODIPine [Norvasc] 10 mg PO DAILY #30 tab 12/29/14 Allergies Allergy/AdvReac Type Severity Reaction Status Date / Time No Known Allergies Allergy Verified 11/29/16 11:59 Review of Systems ROS Statement: Those systems with pertinent positive or pertinent negative responses have been documented in the HPI. ROS Other: All systems not noted in ROS Statement are negative. Past Medical History Past Medical History: Atrial Fibrillation, Coronary Artery Disease (CAD), Cancer , Chest Pain / Angina, Hyperlipidemia, Hypertension, Osteoarthritis (OA), Pneumonia, Renal Disease Additional Past Medical History / Comment(s): Other HX: Bladder cancer with recent scope with lesions removed and is to have TB virus instilled into his bladder starting December, ulloa's palsy, UTI in April 2014, pneumonia yrs ago, chronic kidney disease stage III. History of Any Multi-Drug Resistant Organisms: None Reported Past Surgical History: Appendectomy, Heart Catheterization, Heart Catheterization With Stent, Joint Replacement, Pacemaker Additional Past Surgical History / Comment(s): 10/03/08 PTCA with stenting of LAD , partial LEFT KNEE REPLACEMENT, BLADDER SCOPE recently. Past Anesthesia/Blood Transfusion Reactions: No Reported Reaction Date of Last Stent Placement:: 10/03/08 Type of Cardiac Device: Permanent Pacemaker Device Placement Date:: 2015 Past Psychological History: No Psychological Hx Reported Additional Psychological History / Comment(s): Pt lives alone. He is independent. Pt drives a car. He uses no assistive devices and has no home health agencies coming into the home. Smoking Status: Former smoker Past Alcohol Use History: Rare Past Drug Use History: None Reported - Past Family History Father Family Medical History: Coronary Artery Disease (CAD), Myocardial Infarction ([place] ) (Father at age of 63 from [place].) Mother Family Medical History: CVA/TIA (Mother at age 65 from CVA.) Brother(s) Family Medical History: Pulmonary Embolus (Patient had one brother who at the age of 61 from pulmonary embolism.) Sister(s) Family Medical History: No Reported History (Patient had 3 sisters one of his sisters from of back trouble.) Daughter(s) Family Medical History: No Reported History (Patient has one daughter no major medical problems) Son(s) Family Medical History: No Reported History (Patient has one son no major medical problems) General Exam - General Exam Comments Initial Comments: General: The patient is awake and alert, in no distress, and does not appear acutely ill. Head: Patient appears to have a bleeding wound from the right cheek area that appeared to be a small vessel that he did scrape. Eye: Pupils are equal, round. Ears, nose, mouth and throat: There are moist mucous membranes. Neck: The neck is supple, there is no tenderness Cardiovascular: There is a regular rate and rhythm. No murmur, rub or gallop is appreciated. Respiratory: Lungs are clear to auscultation, respirations are non-labored, breath sounds are equal. No wheezes, stridor, rales, or rhonchi. Neurological: CN II-XII intact, There are no obvious motor or sensory deficits. Coordination appears grossly intact. Speech is normal. Skin: Skin is warm and dry and no rashes or lesions are noted. Psychiatric: Cooperative, appropriate mood & affect, normal judgment. Limitations: no limitations Course Vital Signs 11/29/16 11:57 Temperature 97.8 F Pulse Rate 58 L Respiratory 20 Rate Blood Pressure 182/77 O2 Sat by Pulse 98 Oximetry Medical Decision Making - Medical Decision Making 81-year-old male presents emergency Department what appears to be a bleeding wound to the right cheek. At this time we did apply let to the area. At this time patient's bleeding has stopped and we did cauterize the area. Discussed Follow-up and return parameters all questions. He stated he understood the plan. Certainly will be discharged. Disposition Clinical Impression: Facial abrasion Disposition: HOME SELF-CARE Condition: Stable Instructions: Abrasion (ED) Additional Instructions: Please use medication as discussed. Please follow up with family doctor if symptoms have not improved over the next two days. Please return to the emergency room if your symptoms increase or worsen or for any other concerns. Referrals: Jose Carlos Hicks MD [Primary Care Provider] - 1-2 days Time of Disposition: 13:52
[2016-11-29 14:08] VITALS: BP 175/82; PULSE 62; RESP 16; TEMP 97.6
== END 2016-11-29 14:00 | disposition home or self-care (01) ==
LOC: EC 11:44
DX: S00.81XA Abrasion of other part of head, initial encounter (principal); X58.XXXA Exposure to other specified factors, initial encounter; I12.9 Hypertensive chronic kidney disease with stage 1 through stage 4 chronic kidney disease, or unspecified chronic kidney disease; N18.3 Chronic kidney disease, stage 3 (moderate); I48.91 Unspecified atrial fibrillation; I25.10 Atherosclerotic heart disease of native coronary artery without angina pectoris; E78.5 Hyperlipidemia, unspecified; Z79.82 Long term (current) use of aspirin; Z79.899 Other long term (current) drug therapy; Z85.51 Personal history of malignant neoplasm of bladder; Z95.5 Presence of coronary angioplasty implant and graft; Z95.0 Presence of cardiac pacemaker; Z87.891 Personal history of nicotine dependence
CPT/HCPCS: 99283

== ENCOUNTER → 2017-08-15 | Outpatient (CLI) | payer MEDICARE, BC ==
--- NOTE | 2017-08-15 13:19 | CT ---
EXAMINATION TYPE: CT abdomen wo con DATE OF EXAM: 08/15/2017 COMPARISON: Abdominal ultrasound dated 07/27/2016. HISTORY: Urinary bladder carcinoma. CT DLP: 725 mGycm Automated exposure control for dose reduction was used. TECHNIQUE: Helical acquisition of images was performed from the lung bases through the top of iliac crest to include entire abdomen. CONTRAST: Performed with Oral Contrast and without IV contrast. FINDINGS: LUNG BASES: Small right and trace left pleural effusions are partially visualized. Additionally a sma ll pericardial effusion and cardiomegaly are also partially visualized. LIVER/GB: The liver is diffusely hypoattenuated compatible with hepatic steatosis. This limits evalua tion for hepatic masses as does the lack of intravenous contrast. However, within the periphery of se gment 8 there is a 5 mm hypoattenuated hepatic lesion that is too small to accurately characterize on series 5 image 18. PANCREAS: No significant abnormality. No ductal dilatation. SPLEEN: Unremarkable unenhanced morphology. Subcentimeter splenule is seen near the splenic hilum. ADRENALS: No significant abnormality is seen. KIDNEYS: Numerous simple fluid attenuated probable bilateral renal cortical cysts are seen with the l argest measuring up to 1.8 cm within the left midpole and the largest on the right measuring up to 3. 4 cm emanating from the right inferior pole posterior medially. BOWEL: Few sigmoid diverticula are partially seen and incidentally identified. No evidence of bowel obstruction or gross evidence of focal bowel wall thickening. LYMPH NODES: No greater than 1 cm lymph node is seen within the abdomen. Prominent portacaval lymph node measures 9 mm in short axis. OSSEOUS STRUCTURES: Moderate to severe multilevel degenerative changes of the visualized thoracic ngozi mbar spine are seen. FREE AIR: No free air is visualized. OTHER: Moderate calcific atheromatous changes are present of the abdominal aorta. Abdominal aorta is of normal course and caliber. IMPRESSION: 1. NUMEROUS BILATERAL FLUID ATTENUATED RENAL CYSTS. 2. NO EVIDENCE OF ABDOMINAL ADENOPATHY. 3. HEPATIC STEATOSIS AND SINGLE SUBCENTIMETER HEPATIC LESION THAT IS TOO SMALL TO ACCURATELY CHARACTE RIZE. 4. PARTIALLY VISUALIZED SMALL RIGHT AND TRACE LEFT PLEURAL EFFUSION. 5. SMALL PERICARDIAL EFFUSION AND CARDIOMEGALY.
== END | disposition home or self-care (01) ==
LOC: RADCTMAIN 11:23
PROVIDERS: ATTEND Urology
DX: N28.1 Cyst of kidney, acquired (principal); K76.0 Fatty (change of) liver, not elsewhere classified; C67.2 Malignant neoplasm of lateral wall of bladder
CPT/HCPCS: 74150

== ENCOUNTER 2017-11-02 21:43 | Inpatient (IN) | payer MEDICARE, BC ==
--- NOTE | 2017-11-02 21:56 | ED ---
Chest Pain HPI - General Chief Complaint: Chest Pain Stated Complaint: chest & arm pain Time Seen by Provider: 11/02/17 21:50 Source: patient Mode of arrival: wheelchair Limitations: no limitations - History of Present Illness Initial Comments: This patient is an 82-year-old man who presents to be evaluated for chest pain is been going on for the past couple of hours. The patient states that he described the pains to his son who recommended that he be seen in the emergency department. Patient describes the pains as being intermittent, lasting a few seconds at a time and that they are probably 15-30 minutes apart. He states they're dull. He noticed that there is some tingling of both arms. He has not had any other associated symptoms. He has not noted anything that seems to help with the pains. He has not noted any things that seem to bring the pain on or worsen. MD Complaint: chest pain -: hour(s) Onset: during rest Pain Location: substernal Pain Radiation: RUE, LUE Severity: mild Quality: dull Consistency: intermittent Improves With: nothing Worsens With: nothing Treatments Prior to Arrival: none - Related Data Home Medications Medication Instructions Recorded Confirmed Atorvastatin Calcium [Lipitor] 20 mg PO HS 05/04/14 11/02/17 Furosemide [Lasix] 20 mg PO DAILY 05/04/14 11/02/17 Lisinopril [Prinivil] 10 mg PO DAILY 12/14/15 11/02/17 Atenolol [Tenormin] 12.5 mg PO DAILY 07/27/16 11/02/17 Tamsulosin [Flomax] 0.4 mg PO DAILY 09/25/16 11/02/17 Previous Rx's Medication Instructions Recorded amLODIPine [Norvasc] 10 mg PO DAILY #30 tab 12/29/14 Allergies Allergy/AdvReac Type Severity Reaction Status Date / Time No Known Allergies Allergy Verified 11/02/17 21:58 Review of Systems ROS Statement: Those systems with pertinent positive or pertinent negative responses have been documented in the HPI. ROS Other: All systems not noted in ROS Statement are negative. Constitutional: Denies: fever, chills, weakness Respiratory: Denies: cough, dyspnea Cardiovascular: Reports: chest pain. Denies: palpitations, edema, syncope Gastrointestinal: Denies: abdominal pain, nausea, vomiting, diarrhea, melena, hematochezia Genitourinary: Denies: dysuria, hematuria Musculoskeletal: Denies: back pain Skin: Denies: rash Neurological: Denies: headache, weakness, numbness, paresthesias EKG Findings - EKG Comments: EKG Findings:: The 12-lead ECG shows what appears to be a ventricular paced rhythm with a rate of approximately 67 bpm, there are occasional PVCs present. - EKG Results: EKG: interpreted by DWAIND Past Medical History Past Medical History: Atrial Fibrillation, Coronary Artery Disease (CAD), Cancer , Chest Pain / Angina, Hyperlipidemia, Hypertension, Osteoarthritis (OA), Pneumonia, Renal Disease Additional Past Medical History / Comment(s): Other HX: Bladder cancer with recent scope with lesions removed and is to have TB virus instilled into his bladder starting December, ulloa's palsy, UTI in April 2014, pneumonia yrs ago, chronic kidney disease stage III. History of Any Multi-Drug Resistant Organisms: None Reported Past Surgical History: Appendectomy, Heart Catheterization, Heart Catheterization With Stent, Joint Replacement, Pacemaker Additional Past Surgical History / Comment(s): 10/03/08 PTCA with stenting of LAD , partial LEFT KNEE REPLACEMENT, BLADDER SCOPE recently. Past Anesthesia/Blood Transfusion Reactions: No Reported Reaction Date of Last Stent Placement:: 10/03/08 Type of Cardiac Device: Permanent Pacemaker Device Placement Date:: 2015 Past Psychological History: No Psychological Hx Reported Smoking Status: Former smoker Past Alcohol Use History: Rare Past Drug Use History: None Reported - Past Family History Father Family Medical History: Coronary Artery Disease (CAD), Myocardial Infarction ([place] ) (Father at age of 63 from [place].) Mother Family Medical History: CVA/TIA (Mother at age 65 from CVA.) Brother(s) Family Medical History: Pulmonary Embolus (Patient had one brother who at the age of 61 from pulmonary embolism.) Sister(s) Family Medical History: No Reported History (Patient had 3 sisters one of his sisters from of back trouble.) Daughter(s) Family Medical History: No Reported History (Patient has one daughter no major medical problems) Son(s) Family Medical History: No Reported History (Patient has one son no major medical problems) General Exam Limitations: no limitations General appearance: alert, in no apparent distress Head exam: Present: atraumatic, normocephalic Eye exam: Present: normal appearance. Absent: scleral icterus, conjunctival injection ENT exam: Present: normal oropharynx Neck exam: Present: normal inspection, full ROM Respiratory exam: Present: normal lung sounds bilaterally. Absent: respiratory distress, wheezes, rales, rhonchi, stridor Cardiovascular Exam: Present: regular rate, normal rhythm, normal heart sounds. Absent: systolic murmur, diastolic murmur, rubs, gallop GI/Abdominal exam: Present: soft. Absent: distended, tenderness, guarding, rebound, rigid, mass, pulsatile mass Extremities exam: Present: normal inspection, normal capillary refill, pedal edema (There is mild bilateral edema to the knees). Absent: tenderness, calf tenderness Back exam: Present: normal inspection. Absent: CVA tenderness (R), CVA tenderness (L) Neurological exam: Present: alert Skin exam: Present: warm, dry, intact, normal color. Absent: rash Course Vital Signs 11/02/17 11/02/17 11/02/17 21:44 22:00 22:25 Temperature 98.7 F Pulse Rate 82 67 Pulse Rate [ 76 Celery Cutter ] Respiratory 18 18 Rate Blood Pressure 140/68 159/93 O2 Sat by Pulse 98 98 Oximetry 11/02/17 11/03/17 11/03/17 23:37 00:51 02:11 Temperature 98 F Pulse Rate 58 L 60 72 Pulse Rate [ Celery Cutter ] Respiratory 18 18 16 Rate Blood Pressure 156/63 178/74 182/86 O2 Sat by Pulse 98 97 97 Oximetry Chest Pain MDM - MDM This patient is an 82-year-old man presenting with intermittent chest pains. Initial workup here is negative patient will be admitted to have serial cardiac enzymes and telemetry monitoring. Disposition Clinical Impression: Chest pain Disposition: ADMITTED IP TO THIS HOSP Condition: Fair
[2017-11-02 22:09] LABS: Basophils % (A) 1 %; Eosinophils # (A) 0.1 k/uL (0-0.7); Eosinophils % (A) 2 %; HCT 37.3 % (39.0-53.0); HGB 11.6 gm/dL (13.0-17.5); Lymphocytes % (A) 22 %; MCH 29.9 pg (25.0-35.0); MCHC 31.2 g/dL (31.0-37.0); MCV 96.1 fL (80.0-100.0); Mean Platelet Volume 8.2; Monocytes # (A) 0.3 k/uL (0-1.0); Monocytes % (A) 8 %; Neutrophils # (A) 2.9 k/uL (1.3-7.7); Neutrophils % (A) 67 %; Platelet Count 116 k/uL (150-450); RBC 3.88 m/uL (4.30-5.90); RDW 13.8 % (11.5-15.5); WBC 4.4 k/uL (3.8-10.6)
--- NOTE | 2017-11-02 22:20 | XR ---
EXAMINATION TYPE: XR chest 1V portable DATE OF EXAM: 11/02/2017 COMPARISON: 10/02/2016 HISTORY: Chest pain TECHNIQUE: Single frontal view of the chest is obtained. FINDINGS: Heart is moderately enlarged. There is no gross heart failure. Lungs appear clear of conso lidation. There is left axillary pacemaker with the lead tip over the right ventricle. IMPRESSION: Severe cardiomegaly. Heart appears increased compared to last exam. The possibility of p ericardial effusion should also be considered.
[2017-11-02 22:22] LABS: Albumin 4.2 g/dL (3.5-5.0); Calcium 9.2 mg/dL (8.4-10.2); Magnesium 1.9 mg/dL (1.6-2.3); Potassium 4.4 mmol/L (3.5-5.1); Total Bilirubin 1.3 mg/dL (0.2-1.3); Total Protein 6.7 g/dL (6.3-8.2)
[2017-11-02 22:27] LABS: Partial Thromboplastin Time 23.2 sec (22.0-30.0); Prothrombin Time 10.2 sec (9.0-12.0)
[2017-11-02 22:39] LABS: Creatine Kinase MB 0.9 ng/mL (0.0-2.4); Troponin I 0.018 ng/mL (0.000-0.034)
[2017-11-02 23:09] LABS: Appearance,Urine Clear (Clear); Bacteria,Urine Rare /hpf; Bilirubin,Urine Negative (Negative); Blood,Urine Small (Negative); Color,Urine Yellow; Glucose,Urine (UA) Negative (Negative); Hyaline Casts,Urine 8 /lpf (0-2); Ketones,Urine Negative (Negative); Leukocyte Esterase,Urine Negative (Negative); Mucus,Urine Rare /hpf; Nitrite,Urine Negative (Negative); PH, Urine 5.5 (5.0-8.0); Protein,Urine Trace (Negative); RBC,Urine 8 /hpf (0-5); Specific Gravity,Urine 1.011 (1.001-1.035); Squamous Epithelial Cell,Urine 1 /hpf (0-4); WBC,Urine 1 /hpf (0-5)
[2017-11-03] MEDS ORDERED: NITROGLYCERIN SL TABS 0.4 MG TAB SUBLINGUAL PRN (00:15)
[2017-11-03 05:44] LABS: Creatine Kinase MB 0.9 ng/mL (0.0-2.4); Troponin I 0.024 ng/mL (0.000-0.034)
[2017-11-03 08:04] VITALS: RESP 16
[2017-11-03] MEDS ORDERED: TAMSULOSIN 0.4 MG CAP.ER.24H PO SCH (09:00)
[2017-11-03] MEDS ORDERED: LISINOPRIL 10 MG TAB PO SCH (09:00)
[2017-11-03] MEDS ORDERED: ASPIRIN 325 MG TAB PO SCH (09:00)
[2017-11-03] MEDS ORDERED: FUROSEMIDE 20 MG TAB PO SCH (09:00)
[2017-11-03] MEDS ORDERED: ATENOLOL 12.5 MG TAB PO SCH (09:00)
[2017-11-03] MEDS ORDERED: amLODIPine 10 MG TAB PO SCH (09:00)
[2017-11-03] MEDS ORDERED: SODIUM CHLORIDE 0.9% 1,000 ML IV SCH (11:00)
--- NOTE | 2017-11-03 11:09 | P.CRDCN ---
History of Present Illness Consult date: 11/03/17 Requesting physician: Roberto Dukes Reason for Consult (text): chest pain Chief complaint: brief chest discomfort, tingling arms, flushed feeling History of present illness: This is a pleasant 82-year-old gentleman with prior history of coronary artery disease with stenting of LAD in 2008, chronic atrial fibrillation, sick sinus syndrome with a permanent pacemaker, hypertension and dyslipidemia. He follows regularly with Dr. Castro in the office. He presented to the emergency department after having complaints of very brief chest discomfort while sitting in his chair, pain lasted only seconds. He also had some tingling in his arms and a flushed feeling in his face which prompted him to present to the emergency department due to concern for having the flu. Chest x-ray on admission showed moderately enlarged heart with no gross heart failure lungs appear clear of consolidation possibility of pericardial effusion should be considered. EKG showed atrial fibrillation with a ventricular paced rhythm. Labs showed a BUN of 36 and creatinine of 2.0 with troponins of 0.018 and 0.024. Most recent stress tests from 2017 showed no evidence of reversible ischemia. Most recent available echocardiogram showed an ejection fraction of 43% with moderate concentric hypertrophy, severely dilated LA moderately dilated RV and moderately dilated RA with mild mitral regurgitation, mild aortic regurgitation, severe tricuspid regurgitation and severely increased PASP. Upon examination, patient is sitting up in a chair. He denies further complaints of chest discomfort, tingling in his arms or flushed feeling. He denies complaints of dizziness, lightheadedness or shortness of breath. He does have chronic lower extremity edema that is stable. Past Medical History Past Medical History: Atrial Fibrillation, Coronary Artery Disease (CAD), Cancer , Chest Pain / Angina, Hyperlipidemia, Hypertension, Osteoarthritis (OA), Pneumonia, Renal Disease Additional Past Medical History / Comment(s): Other HX: Bladder cancer with recent scope with lesions removed and is to have TB virus instilled into his bladder starting December, ulloa's palsy, UTI in April 2014, pneumonia yrs ago, chronic kidney disease stage III. History of Any Multi-Drug Resistant Organisms: None Reported Past Surgical History: Appendectomy, Heart Catheterization, Heart Catheterization With Stent, Joint Replacement, Pacemaker Additional Past Surgical History / Comment(s): 10/03/08 PTCA with stenting of LAD , partial LEFT KNEE REPLACEMENT, BLADDER SCOPE recently. Past Anesthesia/Blood Transfusion Reactions: No Reported Reaction Date of Last Stent Placement:: 10/03/08 Type of Cardiac Device: Permanent Pacemaker Device Placement Date:: 2015 Past Psychological History: No Psychological Hx Reported Smoking Status: Former smoker Past Alcohol Use History: Rare Past Drug Use History: None Reported - Past Family History Father Family Medical History: Coronary Artery Disease (CAD), Myocardial Infarction ([place] ) (Father at age of 63 from [place].) Mother Family Medical History: CVA/TIA (Mother at age 65 from CVA.) Brother(s) Family Medical History: Pulmonary Embolus (Patient had one brother who at the age of 61 from pulmonary embolism.) Sister(s) Family Medical History: No Reported History (Patient had 3 sisters one of his sisters from of back trouble.) Daughter(s) Family Medical History: No Reported History (Patient has one daughter no major medical problems) Son(s) Family Medical History: No Reported History (Patient has one son no major medical problems) Medications and Allergies Home Medications Medication Instructions Recorded Confirmed Type Atorvastatin Calcium [Lipitor] 20 mg PO HS 05/04/14 11/02/17 History Furosemide [Lasix] 20 mg PO DAILY 05/04/14 11/02/17 History amLODIPine [Norvasc] 10 mg PO DAILY #30 tab 12/29/14 11/02/17 Rx Lisinopril [Prinivil] 10 mg PO DAILY 12/14/15 11/02/17 History Atenolol [Tenormin] 12.5 mg PO DAILY 07/27/16 11/02/17 History Tamsulosin [Flomax] 0.4 mg PO DAILY 09/25/16 11/02/17 History Allergies Allergy/AdvReac Type Severity Reaction Status Date / Time No Known Allergies Allergy Verified 11/02/17 21:58 Physical Exam Vitals: Vital Signs Temp Pulse Pulse Pulse Resp BP BP 11/03/17 08:03 97.8 F 65 16 148/70 11/03/17 03:51 96.6 F L 76 18 157/72 11/03/17 02:11 98 F 72 16 182/86 11/03/17 00:51 60 18 178/74 11/02/17 23:37 58 L 18 156/63 11/02/17 22:25 67 18 159/93 11/02/17 22:00 76 11/02/17 21:44 98.7 F 82 18 140/68 Pulse Ox 11/03/17 08:03 97 11/03/17 03:51 95 11/03/17 02:11 97 11/03/17 00:51 97 11/02/17 23:37 98 11/02/17 22:25 98 11/02/17 22:00 11/02/17 21:44 98 Intake and Output 11/02/17 11/03/17 11/03/17 22:59 06:59 14:59 Intake Total 10 Balance 10 Intake: IV 10 0.9 10 Other: Voiding Method Toilet # Voids 1 Weight 127.006 kg 127.6 kg PHYSICAL EXAMINATION: HEENT: Head is atraumatic, normocephalic. Pupils equal, round. Neck is supple. There is no elevated jugular venous pressure. HEART EXAMINATION: Heart sounds regular, S1 and S2 normal. No murmur or gallop heard. CHEST EXAMINATION: Lungs are clear to auscultation and precussion. No chest wall tenderness is noted on palpation or with deep breathing. ABDOMEN: Soft, nontender. Bowel sounds are heard. No organomegaly noted. EXTREMITIES: 2+ peripheral pulses with evidence of mild to moderate peripheral edema and no calf tenderness noted. NEUROLOGIC patient is awake, alert and oriented x3. . Results 11/02/17 21:56 11/02/17 21:56 Cardiac Enzymes 11/02/17 11/02/17 11/03/17 Range/Units 21:56 21:56 04:10 AST 18 (17-59) U/L CK-MB (CK-2) 0.9 0.9 (0.0-2.4) ng/mL Troponin I 0.018 0.024 (0.000-0.034) ng/mL Coagulation 11/02/17 Range/Units 21:56 PT 10.2 (9.0-12.0) sec APTT 23.2 (22.0-30.0) sec CBC 11/02/17 Range/Units 21:56 WBC 4.4 (3.8-10.6) k/uL RBC 3.88 L (4.30-5.90) m/uL Hgb 11.6 L (13.0-17.5) gm/dL Hct 37.3 L (39.0-53.0) % Plt Count 116 L (150-450) k/uL Comprehensive Metabolic Panel 11/02/17 Range/Units 21:56 Sodium 145 (137-145) mmol/L Potassium 4.4 (3.5-5.1) mmol/L Chloride 107 (98-107) mmol/L Carbon Dioxide 26 (22-30) mmol/L BUN 36 H (9-20) mg/dL Creatinine 2.00 H (0.66-1.25) mg/dL Glucose 134 H (74-99) mg/dL Calcium 9.2 (8.4-10.2) mg/dL AST 18 (17-59) U/L ALT 19 L (21-72) U/L Alkaline Phosphatase 85 (38-126) U/L Total Protein 6.7 (6.3-8.2) g/dL Albumin 4.2 (3.5-5.0) g/dL Current Medications Generic Name Dose Route Start Last Admin Trade Name Freq PRN Reason Stop Dose Admin Amlodipine Besylate 10 mg 11/03/17 09:00 Norvasc PO DAILY [facility] Aspirin 325 mg 11/03/17 09:00 Aspirin PO DAILY [facility] Atenolol 12.5 mg 11/03/17 09:00 Tenormin PO DAILY [facility] Atorvastatin Calcium 20 mg 11/03/17 21:00 Lipitor PO HS [facility] Furosemide 20 mg 11/03/17 09:00 Lasix PO DAILY [facility] Lisinopril 10 mg 11/03/17 09:00 Zestril PO DAILY [facility] Nitroglycerin 0.4 mg 11/03/17 00:15 Nitrostat SUBLINGUAL Q5M PRN Chest Pain Tamsulosin HCl 0.4 mg 11/03/17 09:00 Flomax PO DAILY [facility] Intake and Output 11/02/17 11/03/17 11/03/17 22:59 06:59 14:59 Intake Total 10 Balance 10 Intake: IV 10 0.9 10 Other: Voiding Method Toilet # Voids 1 Weight 127.006 kg 127.6 kg 11/02/17 21:56 11/02/17 21:56 EKG Interpretations (text) Atrial fibrillation with ventricular paced rhythm Assessment and Plan Assessment: #1 chest pain, atypical, only lasting seconds, troponins negative 2, awaiting third set to be drawn #2 chronic atrial fibrillation, intolerant to anticoagulants in the past #3 history of CAD with prior PCI to the LAD in 2008 #4 hypertension #5 hyperlipidemia Plan: From Cardiology's perspective, chest pain is very atypical and two sets troponins negative. We will obtain 2-D echo with doppler and third troponin. If 2-D echo does not show evidence of effusion and third troponin is negative the patient may be discharged home and follow up as an outpatient. DOBBY LOOM FIXER note has been reviewed, I agree with a documented findings and plan of care. Patient was seen and examined.
[2017-11-03 11:24] LABS: Troponin I 0.027 ng/mL (0.000-0.034)
[2017-11-03 11:48] VITALS: BMI 37.0
[2017-11-03 11:53] VITALS: BP 143/70; PULSE 60; TEMP 97.1
[2017-11-03 12:17] LABS: Calcium 9.4 mg/dL (8.4-10.2); Potassium 4.4 mmol/L (3.5-5.1)
--- NOTE | 2017-11-03 13:39 | ECHOF ---
Referral Reason:chest pain MEASUREMENTS -------- HEIGHT: 185.4 cm WEIGHT: 127.5 kg BP: 148/70 RVIDd: 4.4 cm (< 3.3) IVSd: 1.3 cm (0.6 - 1.1) LVIDd: 6.2 cm (3.9 - 5.3) LVPWd: 1.2 cm (0.6 - 1.1) IVSs: 1.5 cm LVIDs: 5.1 cm LVPWs: 1.5 cm LAESV Index (A-L): 157.63 ml/m Ao Diam: 3.5 cm (2.0 - 3.7) AV Cusp: 1.3 cm (1.5 - 2.6) MV EXCURSION: 22.560 mm (> 18.000) MV EF SLOPE: 138 mm/s (70 - 150) EPSS: 1.0 cm MV E Micah: 1.15 m/s MV DecT: 277 ms MV A Micah: 0.44 m/s MV E/A Ratio: 2.63 AR PHT: 619 ms RAP: 15.00 mmHg RVSP: 72.83 mmHg FINDINGS -------- Pacerwire seen in RV and RA. This was a technically adequate study. The left ventricle is mildly dilated. There is mild concentric left ventricular hypertrophy. Ther e is severe global hypokinesis of LV . Overall left ventricular systolic function is moderate-sever gabriel impaired with, an EF between 30 - 35 %. The right ventricle is severely enlarged. LA is severely dilated >100 ml/m2 The right atrium is markedly enlarged. Electronic pacemaker lead seen in the right ventricular cavi ty. There is mild aortic valve sclerosis. There is mild aortic regurgitation. There is no evidence of aortic stenosis. Severe mitral annular calcification present. Severe mitral regurgitation is present. Severe tricuspid regurgitation present. There is severe pulmonary hypertension. The right ventric ular systolic pressure, as measured by Doppler, is 72.83mmHg. Trace/mild (physiologic) pulmonic regurgitation. The aortic root size is normal. The inferior vena cava is dilated with poor inspiratory collapse which is consistent with estimated r ight atrial pressure of 20 mmHg. There is a small, generalized pericardial effusion present. CONCLUSIONS -------- 1. Pacerwire seen in RV and RA. 2. This was a technically adequate study. 3. The left ventricle is mildly dilated. 4. There is mild concentric left ventricular hypertrophy. 5. There is severe global hypokinesis of LV . 6. Overall left ventricular systolic function is moderate-severely impaired with, an EF between 30 - 35 %. 7. The right ventricle is severely enlarged. 8. The right atrium is markedly enlarged. 9. Electronic pacemaker lead seen in the right ventricular cavity. 10. There is mild aortic valve sclerosis. 11. There is mild aortic regurgitation. 12. Severe mitral annular calcification present. 13. Severe mitral regurgitation is present. 14. Severe tricuspid regurgitation present. 15. There is severe pulmonary hypertension. 16. Trace/mild (physiologic) pulmonic regurgitation. 17. The aortic root size is normal. 18. The inferior vena cava is dilated with poor inspiratory collapse which is consistent with estimat ed right atrial pressure of 20 mmHg. 19. There is a small, generalized pericardial effusion present. FUR DRESSER: Stephen Godinez RDCS
--- NOTE | 2017-11-03 14:28 | P.HPIM ---
History of Present Illness H&P Date: 11/03/17 Chief Complaint: Chest pain HISTORY AND PHYSICAL AND DISCHARGE SUMMARY: This is an 82-year-old male patient of Dr. Hicks and Dr. Castro with a previous medical history significant for coronary artery disease status post percutaneous coronary intervention and stent placement of the LAD in 2008, a snake replacement hypertension and hypertensive cardiovascular disease, hyperlipidemia, chronic atrial fibrillation, chronic low back pain. Patient was recently seen on September 2016 and placed in the observation unit status post stress test and cleared for discharge by cardiology. Patient states that he developed mid sternal chest pain while he was watching TV yesterday. He states it lasted for only seconds and it happened twice. She states he was worried about the foci came in the hospital for evaluation. Patient presented to [facility] emergency center for evaluation. EKG was a ventricular paced rhythm. Hemoglobin 11.6, BUN 36 creatinine 2. Electrolytes within normal limits. Blood sugar 134. Troponin 0.018 and 0.024, 0.027. Urinalysis was clear, nitrate and leukoesterase negative. Bacteria rare. Blood small. Patient has been admitted to the selective care unit, cardiology consult, serial enzymes, aspirin. Repeat creatinine 1.8 and baseline is 1.6. Echocardiogram reveals EF 3035% with mild concentric left ventricular hypertrophy, mild aortic valve sclerosis, mild aortic regurgitation, severe mitral regurgitation, severe tricuspid regurgitation, severe pulmonary hypertension. Cardiology cleared the patient for discharge with planned follow-up with Dr. Castro regarding valve replacement. She'll be discharged home today in stable condition. Discharge Medication List Atorvastatin Calcium [Lipitor] 20 mg PO HS 05/04/14 [History] Furosemide [Lasix] 20 mg PO DAILY 05/04/14 [History] amLODIPine [Norvasc] 10 mg PO DAILY #30 tab 12/29/14 [Rx] Lisinopril [Prinivil] 10 mg PO DAILY 12/14/15 [History] Atenolol [Tenormin] 12.5 mg PO DAILY 07/27/16 [History] Tamsulosin [Flomax] 0.4 mg PO DAILY 09/25/16 [History] Review of Systems All systems: negative Constitutional: Denies chills, Denies fatigue, Denies fever, Denies poor appetite, Denies weakness Eyes: denies blurred vision, denies pain Ears, nose, mouth and throat: Denies headache, Denies sore throat Cardiovascular: Reports chest pain, Denies decreased exercise tolerance, Denies dyspnea on exertion, Denies edema, Denies leg edema, Denies lightheadedness, Denies shortness of breath, Denies syncope Respiratory: Denies congestion, Denies cough, Denies cough with sputum, Denies dyspnea, Denies excessive sputum, Denies hemoptysis, Denies home oxygen, Denies wheezing Gastrointestinal: Denies abdominal pain, Denies diarrhea, Denies nausea, Denies vomiting Genitourinary: Denies dysuria Musculoskeletal: Denies myalgias Integumentary: Denies pruritus, Denies rash Neurological: Denies numbness, Denies weakness Psychiatric: Denies anxiety, Denies depression Endocrine: Denies fatigue, Denies weight change Past Medical History Past Medical History: Atrial Fibrillation, Coronary Artery Disease (CAD), Cancer , Chest Pain / Angina, Hyperlipidemia, Hypertension, Osteoarthritis (OA), Pneumonia, Renal Disease Additional Past Medical History / Comment(s): Other HX: Bladder cancer with recent scope with lesions removed and is to have TB virus instilled into his bladder starting December, delacruz's palsy, UTI in April 2014, pneumonia yrs ago, chronic kidney disease stage III. History of Any Multi-Drug Resistant Organisms: None Reported Past Surgical History: Appendectomy, Heart Catheterization, Heart Catheterization With Stent, Joint Replacement, Pacemaker Additional Past Surgical History / Comment(s): 10/03/08 PTCA with stenting of LAD , partial LEFT KNEE REPLACEMENT, BLADDER SCOPE recently. Past Anesthesia/Blood Transfusion Reactions: No Reported Reaction Date of Last Stent Placement:: 10/03/08 Type of Cardiac Device: Permanent Pacemaker Device Placement Date:: 2015 Past Psychological History: No Psychological Hx Reported Smoking Status: Former smoker Past Alcohol Use History: Rare Additional Past Alcohol Use History / Comment(s): Patient used to smoke about half pack every day he smoked for 50 years and quit in the 50s. Past Drug Use History: None Reported - Past Family History Father Family Medical History: Coronary Artery Disease (CAD), Myocardial Infarction ([place] ) (Father at age of 63 from [place].) Additional Family Medical History / Comment(s): Father at age of 63 from [place]. Mother Family Medical History: CVA/TIA (Mother at age 65 from CVA.) Additional Family Medical History / Comment(s): Mother at age 65 from CVA. Brother(s) Family Medical History: Pulmonary Embolus (Patient had one brother who at the age of 61 from pulmonary embolism.) Additional Family Medical History / Comment(s): Patient had 1 brother that at age 61 from pulmonary embolism. Sister(s) Family Medical History: No Reported History (Patient had 3 sisters one of his sisters from of back trouble.) Additional Family Medical History / Comment(s): Patient had 3 sisters and one from back trouble. Daughter(s) Family Medical History: No Reported History (Patient has one daughter no major medical problems) Additional Family Medical History / Comment(s): Patient has one daughter with no major medical problems. Son(s) Family Medical History: No Reported History (Patient has one son no major medical problems) Additional Family Medical History / Comment(s): Patient has one son with no major medical problems. Medications and Allergies Home Medications Medication Instructions Recorded Confirmed Type Atorvastatin Calcium [Lipitor] 20 mg PO HS 05/04/14 11/02/17 History Furosemide [Lasix] 20 mg PO DAILY 05/04/14 11/02/17 History amLODIPine [Norvasc] 10 mg PO DAILY #30 tab 12/29/14 11/02/17 Rx Lisinopril [Prinivil] 10 mg PO DAILY 12/14/15 11/02/17 History Atenolol [Tenormin] 12.5 mg PO DAILY 07/27/16 11/02/17 History Tamsulosin [Flomax] 0.4 mg PO DAILY 09/25/16 11/02/17 History Allergies Allergy/AdvReac Type Severity Reaction Status Date / Time No Known Allergies Allergy Verified 11/02/17 21:58 Physical Exam Vitals: Vital Signs Temp Pulse Pulse Pulse Resp BP BP 11/03/17 08:03 97.8 F 65 16 148/70 11/03/17 03:51 96.6 F L 76 18 157/72 11/03/17 02:11 98 F 72 16 182/86 11/03/17 00:51 60 18 178/74 11/02/17 23:37 58 L 18 156/63 11/02/17 22:25 67 18 159/93 11/02/17 22:00 76 11/02/17 21:44 98.7 F 82 18 140/68 Pulse Ox 11/03/17 08:03 97 11/03/17 03:51 95 11/03/17 02:11 97 11/03/17 00:51 97 11/02/17 23:37 98 11/02/17 22:25 98 11/02/17 22:00 11/02/17 21:44 98 Intake and Output 11/02/17 11/03/17 11/03/17 22:59 06:59 14:59 Intake Total 10 Balance 10 Intake: IV 10 0.9 10 Other: Voiding Method Toilet # Voids 1 Weight 127.006 kg 127.6 kg General appearance: no acute distress - EENT Eyes: anicteric sclerae, PERRLA, no ptosis, no scleral icterus, normal appearance ENT: hearing grossly normal, normal oropharynx, no thrush Ears: bilateral: normal - Neck Neck: no lymphadenopathy, normal ROM, no rigidity, no stridor, no thyromegaly Carotids: bilateral: upstroke normal - Respiratory Respiratory: bilateral: diminished, negative: dullness, rales, rhonchi, wheezing , prolonged expiration, prolonged inspiration - Cardiovascular Rhythm: regularly irregular (Permanent pacemaker.) Heart sounds: normal: S1, S2 Abnormal Heart Sounds: systolic murmur - Gastrointestinal General gastrointestinal: normal bowel sounds, soft, no splenomegaly, no tenderness, no umbilical hernia, no ventral hernia - Integumentary Integumentary: normal, normal turgor - Neurologic Neurologic: CNII-XII intact - Musculoskeletal Musculoskeletal: strength equal bilaterally - Psychiatric Psychiatric: A&O x's 3, appropriate affect, intact judgment & insight Results CBC & Chem 7: 11/02/17 21:56 11/03/17 09:42 Labs: Abnormal Lab Results - Last 24 Hours (Table) 11/02/17 11/02/17 11/02/17 Range/Units 21:56 21:56 21:56 RBC 3.88 L (4.30-5.90) m/uL Hgb 11.6 L (13.0-17.5) gm/dL Hct 37.3 L (39.0-53.0) % Plt Count 116 L (150-450) k/uL BUN 36 H (9-20) mg/dL Creatinine 2.00 H (0.66-1.25) mg/dL Glucose 134 H (74-99) mg/dL ALT 19 L (21-72) U/L Total Creatine Kinase 49 L (55-170) U/L Urine Protein (Negative) Urine Blood (Negative) Urine RBC (0-5) /hpf Urine Bacteria (None) /hpf Hyaline Casts (0-2) /lpf Urine Mucus (None) /hpf 11/02/17 11/03/17 Range/Units 22:50 04:10 RBC (4.30-5.90) m/uL Hgb (13.0-17.5) gm/dL Hct (39.0-53.0) % Plt Count (150-450) k/uL BUN (9-20) mg/dL Creatinine (0.66-1.25) mg/dL Glucose (74-99) mg/dL ALT (21-72) U/L Total Creatine Kinase 46 L (55-170) U/L Urine Protein Trace H (Negative) Urine Blood Small H (Negative) Urine RBC 8 H (0-5) /hpf Urine Bacteria Rare H (None) /hpf Hyaline Casts 8 H (0-2) /lpf Urine Mucus Rare H (None) /hpf Thrombosis Risk Factor Assmnt - DVT/VTE Prophylaxis DVT/VTE Prophylaxis: Pharmacologic Prophylaxis ordered - Choose All That Apply Any of the Below Risk Factors Present?: Yes Each Factor Represents 1 point: Obesity (BMI >25), Swollen legs (current) Each Risk Factor Represents 3 Points: Age 75 years or older Thrombosis Risk Factor Assessment Total Risk Factor Score: 5 Thrombosis Risk Factor Assessment Level: High Risk Assessment and Plan Plan: 1. Chest pain in a patient with a prior history of CAD post PCI of the LAD with finding of significant valvular heart disease.. Continue aspirin, Lipitor , atenolol, cardiology consult appreciated. 2. Coronary artery disease status post PCI and stent placement of the LAD back in 2008 at we'll continue the patient on aspirin 81 mg once every day, Plavix 75 mg orally once every day, continue patient on atenolol 12.5 mg orally once every day. 3. Hypertension and hypertensive cardiovascular disease. Continue atenolol 12.5 mg orally once every day, amlodipine 10 mg orally once every day. 4. Hyperlipidemia . continue the patient on Lipitor 20 mg orally once every day. 5. Bilateral lower extremity edema continue the patient on Lasix 20 mg once every day. 6. History of bladder cancer currently in remission under the care of urology status post BCG injection. 7. History of Delacruz's palsy. 8. History of prediabetes, low-carb diet. 9. Obesity with possible obstructive sleep apnea patient will need to go for polysomnogram as an outpatient. 10. Chronic kidney disease stage III. Stable at this time. 11. DVT prophylaxis. Heparin subcu. 12. GI prophylaxis. Pepcid Discharge plan: Return home Impression and plan of care have been directed as dictated by the signing physician. Razia Lanier nurse practitioner acting as scribe for signing physician.
[2017-11-03] MEDS ORDERED: HEPARIN SODIUM,PORCINE 5,000 UNIT/ML 1 ML VIAL SQ SCH (16:00)
[2017-11-03] MEDS ORDERED: ATORVASTATIN 20 MG TAB PO SCH (21:00)
[2017-11-04] MEDS ORDERED: FAMOTIDINE 20 MG TAB PO SCH (09:00)
== END 2017-11-03 15:33 | disposition home or self-care (01) | DRG 313 ==
LOC: EC 21:43 → 6SEL 11-03 00:15
PROVIDERS: ADMIT Internal Medicine Geriatric Medicine; ATTEND Internal Medicine Geriatric Medicine
DX: R07.89 Other chest pain (principal); I25.10 Atherosclerotic heart disease of native coronary artery without angina pectoris; I08.3 Combined rheumatic disorders of mitral, aortic and tricuspid valves; I27.20 Pulmonary hypertension, unspecified; I48.2 Chronic atrial fibrillation; I13.10 Hypertensive heart and chronic kidney disease without heart failure, with stage 1 through stage 4 chronic kidney disease, or unspecified chronic kidney disease; E66.9 Obesity, unspecified; E78.5 Hyperlipidemia, unspecified; N18.3 Chronic kidney disease, stage 3 (moderate); G89.29 Other chronic pain; I49.5 Sick sinus syndrome; M19.90 Unspecified osteoarthritis, unspecified site; M54.5 Low back pain; G47.33 Obstructive sleep apnea (adult) (pediatric); Z79.899 Other long term (current) drug therapy; Z96.652 Presence of left artificial knee joint; Z95.5 Presence of coronary angioplasty implant and graft; Z87.891 Personal history of nicotine dependence; Z85.51 Personal history of malignant neoplasm of bladder; Z95.0 Presence of cardiac pacemaker; Z82.49 Family history of ischemic heart disease and other diseases of the circulatory system
CPT/HCPCS: 36415; 71045; 80048; 80053; 81001; 82150; 82550; 82553; 83690; 83735; 84484; 85025; 85610; 85730; 93005; 93306; 99285

== ENCOUNTER → 2017-11-27 | Outpatient (CLI) | payer MEDICARE, BC ==
[2017-11-27 10:35] LABS: Potassium 5.1 mmol/L (3.5-5.1)
== END | disposition home or self-care (01) ==
LOC: LABWHC1 09:16
PROVIDERS: ATTEND Internal Medicine Cardiovascular Disease
DX: I50.9 Heart failure, unspecified (principal)
CPT/HCPCS: 36415; 80048; 83880

== ENCOUNTER 2018-04-16 01:04 | Observation (INO) | payer MEDICARE, BC ==
[2018-04-16] MEDS ORDERED: SODIUM CHLORIDE 0.9% 1,000 ML IV STA (01:31)
[2018-04-16] MEDS ORDERED: ASPIRIN 81 MG PO STA (01:31)
[2018-04-16 01:53] LABS: Basophils % (A) 0 %; Eosinophils # (A) 0.1 k/uL (0-0.7); Eosinophils % (A) 1 %; HCT 33.1 % (39.0-53.0); HGB 11.1 gm/dL (13.0-17.5); Lymphocytes # (A) 1.1 k/uL (1.0-4.8); Lymphocytes % (A) 20 %; MCH 31.5 pg (25.0-35.0); MCHC 33.6 g/dL (31.0-37.0); MCV 93.5 fL (80.0-100.0); Mean Platelet Volume 7.8; Monocytes # (A) 0.4 k/uL (0-1.0); Monocytes % (A) 8 %; Neutrophils # (A) 3.8 k/uL (1.3-7.7); Neutrophils % (A) 69 %; Platelet Count 123 k/uL (150-450); RBC 3.54 m/uL (4.30-5.90); RDW 13.3 % (11.5-15.5); WBC 5.5 k/uL (3.8-10.6)
[2018-04-16 02:01] LABS: Magnesium 1.7 mg/dL (1.6-2.3); Potassium 5.4 mmol/L (3.5-5.1); Total Bilirubin 1.2 mg/dL (0.2-1.3); Total Protein 6.3 g/dL (6.3-8.2)
[2018-04-16 02:02] LABS: Partial Thromboplastin Time 23.3 sec (22.0-30.0); Prothrombin Time 10.1 sec (9.0-12.0)
--- NOTE | 2018-04-16 02:04 | XR ---
EXAMINATION TYPE: XR chest 2V DATE OF EXAM: 04/16/2018 COMPARISON: 11/02/2017 HISTORY: Chest pain TECHNIQUE: Frontal and lateral views of the chest are obtained. FINDINGS: Heart is enlarged. There is no heart failure. There is left axillary pacemaker with the le ad tip in the right ventricle. Bony thorax appears intact. There is no pleural effusion. IMPRESSION: Moderate cardiomegaly. No heart failure. No change compared to old exam.
[2018-04-16 02:12] LABS: Creatine Kinase 40 U/L (55-170)
[2018-04-16 02:25] LABS: Creatine Kinase MB 1.1 ng/mL (0.0-2.4); Troponin I <0.012 ng/mL (0.000-0.034)
[2018-04-16] MEDS ORDERED: MORPHINE SULFATE 2 MG/ML SYRINGE IVP PRN (04:18)
[2018-04-16] MEDS ORDERED: NITROGLYCERIN SL TABS 0.4 MG TAB SUBLINGUAL PRN (04:18)
--- NOTE | 2018-04-16 04:54 | ED ---
Chest Pain HPI - General Chief Complaint: Recheck/Abnormal Lab/Rx Stated Complaint: arm pain Time Seen by Provider: 04/16/18 01:20 Source: patient Mode of arrival: ambulatory Limitations: no limitations - History of Present Illness Initial Comments: 82 years old male comes in with pain in his arms more so on the left when he was asleep he got diaphoretic he felt little indigestion history his review of system is concerned he denies any headaches no neck stiffness no chest pain as such he doesn't hurt to take a deep breath of system is unremarkable - Related Data Home Medications Medication Instructions Recorded Confirmed Atorvastatin Calcium [Lipitor] 20 mg PO HS 05/04/14 11/02/17 Furosemide [Lasix] 20 mg PO DAILY 05/04/14 11/02/17 Lisinopril [Prinivil] 10 mg PO DAILY 12/14/15 11/02/17 Atenolol [Tenormin] 12.5 mg PO DAILY 07/27/16 11/02/17 Tamsulosin [Flomax] 0.4 mg PO DAILY 09/25/16 11/02/17 Previous Rx's Medication Instructions Recorded amLODIPine [Norvasc] 10 mg PO DAILY #30 tab 12/29/14 Allergies Allergy/AdvReac Type Severity Reaction Status Date / Time No Known Allergies Allergy Verified 04/16/18 01:17 Review of Systems ROS Statement: Those systems with pertinent positive or pertinent negative responses have been documented in the HPI. ROS Other: All systems not noted in ROS Statement are negative. EKG Findings - EKG Comments: EKG Findings:: EKG is some paced ventricular rate is 60 [place] interval is, QRS duration is 198 QT/QTc is 486/46 and his paced EKG Past Medical History Past Medical History: Atrial Fibrillation, Coronary Artery Disease (CAD), Cancer , Chest Pain / Angina, Hyperlipidemia, Hypertension, Osteoarthritis (OA), Pneumonia, Renal Disease Additional Past Medical History / Comment(s): Other HX: Bladder cancer with recent scope with lesions removed and is to have TB virus instilled into his bladder starting December, ulloa's palsy, UTI in April 2014, pneumonia yrs ago, chronic kidney disease stage III. History of Any Multi-Drug Resistant Organisms: None Reported Past Surgical History: Appendectomy, Heart Catheterization, Heart Catheterization With Stent, Joint Replacement, Pacemaker Additional Past Surgical History / Comment(s): 10/03/08 PTCA with stenting of LAD , partial LEFT KNEE REPLACEMENT, BLADDER SCOPE recently. Past Anesthesia/Blood Transfusion Reactions: No Reported Reaction Date of Last Stent Placement:: 10/03/08 Type of Cardiac Device: Permanent Pacemaker Device Placement Date:: 2015 Past Psychological History: No Psychological Hx Reported Smoking Status: Former smoker Past Alcohol Use History: Rare Past Drug Use History: None Reported - Past Family History Father Family Medical History: Coronary Artery Disease (CAD), Myocardial Infarction ([place] ) (Father at age of 63 from [place].) Additional Family Medical History / Comment(s): Father at age of 63 from [place]. Mother Family Medical History: CVA/TIA (Mother at age 65 from CVA.) Additional Family Medical History / Comment(s): Mother at age 65 from CVA. Brother(s) Family Medical History: Pulmonary Embolus (Patient had one brother who at the age of 61 from pulmonary embolism.) Additional Family Medical History / Comment(s): Patient had 1 brother that at age 61 from pulmonary embolism. Sister(s) Family Medical History: No Reported History (Patient had 3 sisters one of his sisters from of back trouble.) Additional Family Medical History / Comment(s): Patient had 3 sisters and one from back trouble. Daughter(s) Family Medical History: No Reported History (Patient has one daughter no major medical problems) Additional Family Medical History / Comment(s): Patient has one daughter with no major medical problems. Son(s) Family Medical History: No Reported History (Patient has one son no major medical problems) Additional Family Medical History / Comment(s): Patient has one son with no major medical problems. General Exam - General Exam Comments Initial Comments: General: The patient is awake and alert, in no distress, and does not appear acutely ill. Skin: Skin is warm and dry and no rashes or lesions are noted. Eye: Pupils are equal, round and reactive to light, extra-ocular movements are intact; there is normal conjunctiva bilaterally. Ears, nose, mouth and throat: There are moist mucous membranes and no oral lesions. Neck: The neck is supple, there is no tenderness or JVD. Cardiovascular: There is a regular rate and rhythm. No murmur, rub or gallop is appreciated. Respiratory: To auscultation bilateral, no wheezing no rhonchi no distress respiratory chaudhry noticed Gastrointestinal: Soft, non-distended, non-tender abdomen without masses or organomegaly noted. There is no rebound or guarding present. Bowel sounds are unremarkable. Back: There is no tenderness to palpation in the midline. There is no obvious deformity. Musculoskeletal: Normal ROM, no tenderness, There is no pedal edema. There is no calf tenderness or swelling. No cords were appreciated. Neurological: CN II-XII intact, Cranial nerves III through XII are intact. There are no obvious motor or sensory deficits. Coordination appears grossly intact. Speech is normal. Psychiatric: Cooperative, appropriate mood & affect, normal judgment. Limitations: no limitations Course Vital Signs 04/16/18 04/16/18 01:14 03:47 Temperature 98 F Pulse Rate 85 60 Respiratory 18 16 Rate Blood Pressure 175/68 161/74 O2 Sat by Pulse 96 Oximetry Reviewed CBC is unremarkable INR is unremarkable creatinine is bit elevated Disposition Clinical Impression: History of ischemic heart disease, Arm pain, Renal failure Disposition: ADMITTED IP TO THIS HOSP Condition: Good
[2018-04-16] MEDS ORDERED: SODIUM POLYSTYRENE SULFONATE 15 GM/60 ML BOTTLE PO STA (04:55)
[2018-04-16 05:08] VITALS: BMI 35.4
[2018-04-16 08:01] VITALS: PULSE 60; RESP 18
[2018-04-16 08:55] LABS: Creatine Kinase MB 1.2 ng/mL (0.0-2.4); Troponin I 0.016 ng/mL (0.000-0.034)
[2018-04-16] MEDS ORDERED: FUROSEMIDE 20 MG TAB PO SCH (09:00)
[2018-04-16] MEDS ORDERED: amLODIPine 10 MG TAB PO SCH (09:00)
[2018-04-16] MEDS ORDERED: LISINOPRIL 10 MG TAB PO SCH (09:00)
[2018-04-16] MEDS ORDERED: TAMSULOSIN 0.4 MG CAP.ER.24H PO SCH (09:00)
[2018-04-16] MEDS ORDERED: ATENOLOL 25 MG TAB PO SCH (09:00)
--- NOTE | 2018-04-16 11:15 | P.CRDCN ---
History of Present Illness Consult date: 04/16/18 Requesting physician: Fariha Villarreal Reason for Consult (text): Bilateral arm discomfort Chief complaint: Bilateral arm discomfort History of present illness: This is an 82-year-old gentleman who follows regularly with Dr. VC Castro in the office. He has past medical history significant for coronary artery disease with prior stent placement, hypertension, hyperlipidemia, chronic atrial fibrillation, prior pacemaker implantation which was performed by Dr. Anderson. Patient presents to the hospital on this occasion with symptoms of bilateral arm discomfort and numbness which she states woke him from sleep. He denies any discomfort in his chest, no other symptoms of weakness or numbness in the body. EKG was performed on arrival which revealed a ventricular paced rhythm with underlying atrial fibrillation. Chest x-ray showed moderate cardiomegaly. No heart failure. Echocardiogram with Doppler study was performed in October of this year revealed an ejection fraction of 30 -35%, severe mitral regurgitation, severe tricuspid regurg, severe pulmonary hypertension. At the time of my examination this morning, patient is sitting up in the chair at bedside, no complaints. Past Medical History Past Medical History: Atrial Fibrillation, Coronary Artery Disease (CAD), Cancer , Chest Pain / Angina, Hyperlipidemia, Hypertension, Osteoarthritis (OA), Pneumonia, Renal Disease Additional Past Medical History / Comment(s): Other HX: Bladder cancer with recent scope with lesions removed and is to have TB virus instilled into his bladder starting December, ulloa's palsy, UTI in April 2014, pneumonia yrs ago, chronic kidney disease stage III. History of Any Multi-Drug Resistant Organisms: None Reported Past Surgical History: Appendectomy, Heart Catheterization, Heart Catheterization With Stent, Joint Replacement, Pacemaker Additional Past Surgical History / Comment(s): 10/03/08 PTCA with stenting of LAD , partial LEFT KNEE REPLACEMENT, BLADDER SCOPE recently. Past Anesthesia/Blood Transfusion Reactions: No Reported Reaction Date of Last Stent Placement:: 10/03/08 Type of Cardiac Device: Permanent Pacemaker Device Placement Date:: 2015 Past Psychological History: No Psychological Hx Reported Smoking Status: Former smoker Past Alcohol Use History: Rare Past Drug Use History: None Reported - Past Family History Father Family Medical History: Coronary Artery Disease (CAD), Myocardial Infarction ([place] ) (Father at age of 63 from [place].) Additional Family Medical History / Comment(s): Father at age of 63 from [place]. Mother Family Medical History: CVA/TIA (Mother at age 65 from CVA.) Additional Family Medical History / Comment(s): Mother at age 65 from CVA. Brother(s) Family Medical History: Pulmonary Embolus (Patient had one brother who at the age of 61 from pulmonary embolism.) Additional Family Medical History / Comment(s): Patient had 1 brother that at age 61 from pulmonary embolism. Sister(s) Family Medical History: No Reported History (Patient had 3 sisters one of his sisters from of back trouble.) Additional Family Medical History / Comment(s): Patient had 3 sisters and one from back trouble. Daughter(s) Family Medical History: No Reported History (Patient has one daughter no major medical problems) Additional Family Medical History / Comment(s): Patient has one daughter with no major medical problems. Son(s) Family Medical History: No Reported History (Patient has one son no major medical problems) Additional Family Medical History / Comment(s): Patient has one son with no major medical problems. Medications and Allergies Home Medications Medication Instructions Recorded Confirmed Type Atorvastatin Calcium [Lipitor] 20 mg PO HS 05/04/14 04/16/18 History Furosemide [Lasix] 20 mg PO DAILY 05/04/14 04/16/18 History amLODIPine [Norvasc] 10 mg PO DAILY #30 tab 12/29/14 04/16/18 Rx Lisinopril [Prinivil] 10 mg PO DAILY 12/14/15 04/16/18 History Atenolol [Tenormin] 12.5 mg PO DAILY 07/27/16 04/16/18 History Tamsulosin [Flomax] 0.4 mg PO DAILY 09/25/16 04/16/18 History ALPRAZolam [Xanax] 0.25 mg PO TID PRN 04/16/18 04/16/18 History Acetaminophen [Tylenol Arthritis] 650 mg PO DAILY 04/16/18 04/16/18 History Aspirin EC [Ecotrin Low Dose] 81 mg PO DAILY 04/16/18 04/16/18 History Fluticasone Nasal [place] [Flonase 2 spr EA NOSTRIL DAILY 04/16/18 04/16/18 History Nasal [place]] Nitroglycerin Sl Tabs [Nitrostat] 0.4 mg SUBLINGUAL Q5M PRN 04/16/18 04/16/18 History Potassium Gluconate 99 mg PO DAILY 04/16/18 04/16/18 History Spironolactone [Aldactone] 25 mg PO DAILY 04/16/18 04/16/18 History Allergies Allergy/AdvReac Type Severity Reaction Status Date / Time No Known Allergies Allergy Verified 04/16/18 08:46 Physical Exam Vitals: Vital Signs Temp Pulse Pulse Resp BP BP Pulse Ox 04/16/18 07:57 97.3 F L 60 18 152/82 95 04/16/18 05:21 61 19 04/16/18 05:15 97.1 F L 61 19 165/75 98 04/16/18 04:33 97.1 F L 61 19 165/75 98 04/16/18 03:47 60 16 161/74 96 04/16/18 01:14 98 F 85 18 175/68 Intake and Output 04/15/18 04/16/18 04/16/18 22:59 06:59 14:59 Intake Total 0 Balance 0 Intake: Oral 0 Other: Voiding Method Toilet Weight 120.8 kg PHYSICAL EXAMINATION: GENERAL: 82-year-old gentleman in no acute distress at the time of my examination HEENT: Head is atraumatic, normocephalic. Pupils equal, round. Sclera anicteric. Conjunctiva are clear. Mucous membranes of the mouth are moist. Neck is supple. There is no elevated jugular venous pressure. No carotid bruit is heard. HEART EXAMINATION: Heart S1 and S2 systolic murmur is heard CHEST EXAMINATION: Lungs are clear to auscultation and precussion. No chest wall tenderness is noted on palpation or with deep breathing. ABDOMEN: Soft, nontender. Bowel sounds are heard. No organomegaly noted. EXTREMITIES: 2+ peripheral pulses with no evidence of peripheral edema and no calf tenderness noted. NEUROLOGIC patient is awake, alert and oriented ?-3. . Results 04/16/18 01:40 04/16/18 01:40 Cardiac Enzymes 04/16/18 04/16/18 04/16/18 Range/Units 01:40 01:40 08:01 AST 16 L (17-59) U/L CK-MB (CK-2) 1.1 1.2 (0.0-2.4) ng/mL Troponin I <0.012 0.016 (0.000-0.034) ng/mL Coagulation 04/16/18 Range/Units 01:40 PT 10.1 (9.0-12.0) sec APTT 23.3 (22.0-30.0) sec CBC 04/16/18 Range/Units 01:40 WBC 5.5 (3.8-10.6) k/uL RBC 3.54 L (4.30-5.90) m/uL Hgb 11.1 L (13.0-17.5) gm/dL Hct 33.1 L (39.0-53.0) % Plt Count 123 L (150-450) k/uL Comprehensive Metabolic Panel 04/16/18 Range/Units 01:40 Sodium 141 (137-145) mmol/L Potassium 5.4 H (3.5-5.1) mmol/L Chloride 112 H (98-107) mmol/L Carbon Dioxide 23 (22-30) mmol/L BUN 40 H (9-20) mg/dL Creatinine 2.10 H (0.66-1.25) mg/dL Glucose 120 H (74-99) mg/dL Calcium 9.0 (8.4-10.2) mg/dL AST 16 L (17-59) U/L ALT 26 (21-72) U/L Alkaline Phosphatase 69 (38-126) U/L Total Protein 6.3 (6.3-8.2) g/dL Albumin 4.0 (3.5-5.0) g/dL Current Medications Generic Name Dose Route Start Last Admin Trade Name Tao PRN Reason Stop Dose Admin Amlodipine Besylate 10 mg 04/16/18 09:00 04/16/18 08:48 Norvasc PO [address] [facility] Administration Aspirin 325 mg 04/17/18 09:[address] [facility] Atenolol 12.5 mg 04/16/18 09:00 04/16/18 08:48 Tenormin PO 12.5 mg DAILY [facility] Administration Atorvastatin Calcium 20 mg 04/16/18 21:00 Lipitor PO HS [facility] Furosemide 20 mg 04/16/18 09:00 04/16/18 08:48 Lasix PO 20 mg DAILY [facility] Administration Sodium Chloride 1,000 mls @ 100 mls/hr 04/16/18 01:31 04/16/18 02:04 Saline 0.9% IV 04/16/18 11:30 100 mls/hr .Q10H STA Administration Lisinopril 10 mg 04/16/18 09:00 04/16/18 08:48 Zestril PO 10 mg DAILY [facility] Administration Morphine Sulfate 2 mg 04/16/18 04:18 Morphine Sulfate (Inj) IVP Q5M PRN Chest Pain Nitroglycerin 0.4 mg 04/16/18 04:18 Nitrostat SUBLINGUAL Q5M PRN Chest Pain Tamsulosin HCl 0.4 mg 04/16/18 09:00 04/16/18 08:48 Flomax PO 0.4 mg DAILY [facility] Administration Intake and Output 04/15/18 04/16/18 04/16/18 22:59 06:59 14:59 Intake Total 0 Balance 0 Intake: Oral 0 Other: Voiding Method Toilet Weight 120.8 kg 04/16/18 01:40 04/16/18 01:40 EKG Interpretations (text) EKG shows a ventricular paced rhythm with underlying afib Assessment and Plan Plan: Assessment and plan #1 symptoms of a bilateral hand and arm discomfort and numbness, atypical for acute coronary syndrome. Troponins negative 2. EKG shows a paced rhythm with underlying atrial fibrillation #2 known history of coronary artery disease with prior LAD stenting, most recent stress test performed in September of last year negative for reversible ischemia #3 hypertension #4 hyperlipidemia #5 history of bladder cancer #6 chronic kidney disease stage III, creatinine 2.1, potassium 5.4 #7 prior pacemaker implantation Plan We will decrease aspirin 81 mg daily, continue Lipitor, Lasix 20 mg daily, lisinopril, potassium supplementation has been placed on hold. We will increase her beta cait dose to 25 mg daily for more optimal blood pressure control. Further recommendations to follow. DNP note has been reviewed, I agree with a documented findings and plan of care. Patient was seen and examined.
[2018-04-16 11:49] VITALS: BP 143/62; TEMP 97.6
--- NOTE | 2018-04-16 13:54 | XR ---
EXAMINATION TYPE: XR cervical spine comp DATE OF EXAM: 04/16/2018 COMPARISON: NONE HISTORY: Bilateral arm numbness TECHNIQUE: Four views are submitted. FINDINGS: The odontoid is intact. There are no compression deformities. The prevertebral soft tissue structur es are within normal limits. Atherosclerotic change of the vasculature noted. There is a 3 mm retrol isthesis of C3 on C4. Multilevel degenerative disc disease and facet arthropathy. Hypertrophic spurri ng noted anteriorly. Significant foraminal encroachment suspected at levels C3-C7. IMPRESSION: 1. Multilevel degenerative change and facet arthropathy with multilevel foraminal encroachment. MRI r ecommended.
--- NOTE | 2018-04-16 14:55 | P.HPIM ---
History of Present Illness H&P Date: 04/16/18 Chief Complaint: Bilateral arm pain HISTORY AND PHYSICAL AND DISCHARGE SUMMARY: This is an 82-year-old male patient of Dr. Hicks and Dr. Castro with a previous medical history significant for coronary artery disease status post percutaneous coronary intervention and stent placement of the LAD in 2008, pacemaker replacement, hypertension and hypertensive cardiovascular disease, hyperlipidemia, chronic atrial fibrillation, chronic low back pain. Patient was recently seen in October 2017 and placed in the observation unit status post Echocardiogram revealed EF 30-35% with mild concentric left ventricular hypertrophy, mild aortic valve sclerosis, mild aortic regurgitation, severe mitral regurgitation, severe tricuspid regurgitation, severe pulmonary hypertension. Patient complains of discomfort and numbness to bilateral hands that woke him in the middle of the night. He denies sleeping on one arm or the other. He denies having any chest pain, jaw pain and neck pain. He denies any activities of the day before. His son is at the bedside and states this is happening before. He denies any cervical disc disease in the neck. No lightheadedness or dizziness. The numbness went away on its own shortly after he arrived to the hospital. He denies any increased pedal edema. Patient came into [facility] emergency center for evaluation. EKG was a ventricular paced rhythm. Hemoglobin 11.1, BUN 40 creatinine 2.1 with baseline of 1.7 or 1.8. Potassium 5.4. Blood sugar 120. Troponin 0.018 and 0.012, 0.016. Patient placed on the selective care unit, cardiology consult The patient has been seen by cardiology and cleared for discharge. Cardiology has increased atenolol for blood pressure control. Cervical x-ray reveals multilevel degenerative change and facet arthropathy with multilevel foraminal encroachment. MRI recommended. Patient is also considered for carpal tunnel syndrome. Patient will be discharged home today in stable condition. Discharge Medication List Atorvastatin Calcium [Lipitor] 20 mg PO HS 05/04/14 [History] Furosemide [Lasix] 20 mg PO DAILY 05/04/14 [History] amLODIPine [Norvasc] 10 mg PO DAILY #30 tab 12/29/14 [Rx] Lisinopril [Prinivil] 10 mg PO DAILY 12/14/15 [History] Tamsulosin [Flomax] 0.4 mg PO DAILY 09/25/16 [History] ALPRAZolam [Xanax] 0.25 mg PO TID PRN 04/16/18 [History] Acetaminophen [Tylenol Arthritis] 650 mg PO DAILY 04/16/18 [History] Aspirin EC [Ecotrin Low Dose] 81 mg PO DAILY 04/16/18 [History] Atenolol [Tenormin] 25 mg PO DAILY #30 tab 04/16/18 [Rx] Fluticasone Nasal [place] [Flonase Nasal [place]] 2 spr EA NOSTRIL DAILY 04/16/18 [ History] Nitroglycerin Sl Tabs [Nitrostat] 0.4 mg SUBLINGUAL Q5M PRN 04/16/18 [History] Spironolactone [Aldactone] 25 mg PO DAILY 04/16/18 [History] Review of Systems All systems: negative Constitutional: Denies chills, Denies fever Eyes: denies blurred vision, denies pain Ears, nose, mouth and throat: Denies headache, Denies sore throat Cardiovascular: Denies chest pain, Denies shortness of breath Respiratory: Denies cough Gastrointestinal: Denies abdominal pain, Denies diarrhea, Denies nausea, Denies vomiting Musculoskeletal: Reports arm numbness/tingling, Denies myalgias Integumentary: Denies pruritus, Denies rash Neurological: Denies numbness, Denies weakness Psychiatric: Denies anxiety, Denies depression Endocrine: Denies fatigue, Denies weight change Past Medical History Past Medical History: Atrial Fibrillation, Coronary Artery Disease (CAD), Cancer , Chest Pain / Angina, Hyperlipidemia, Hypertension, Osteoarthritis (OA), Pneumonia, Renal Disease Additional Past Medical History / Comment(s): Other HX: Bladder cancer with cystoscopy, lesions removed, TB virus instilled into his bladder starting December, delacruz's palsy, UTI in April 2014, pneumonia yrs ago, chronic kidney disease stage III. History of Any Multi-Drug Resistant Organisms: None Reported Past Surgical History: Appendectomy, Heart Catheterization, Heart Catheterization With Stent, Joint Replacement, Pacemaker Additional Past Surgical History / Comment(s): 10/03/08 PTCA with stenting of LAD , partial LEFT KNEE REPLACEMENT, BLADDER SCOPE recently. Past Anesthesia/Blood Transfusion Reactions: No Reported Reaction Date of Last Stent Placement:: 10/03/08 Type of Cardiac Device: Permanent Pacemaker Device Placement Date:: 2015 Past Psychological History: No Psychological Hx Reported Smoking Status: Former smoker Past Alcohol Use History: Rare Additional Past Alcohol Use History / Comment(s): Patient was a smoker of half a pack per day for 50 years and quit in the 50s. Past Drug Use History: None Reported - Past Family History Father Family Medical History: Coronary Artery Disease (CAD), [place]ocardial Infarction ([place] ) (Father at age of 63 from [place] Additional Family Medical History / Comment(s): Father at age of 63 from [place]. Mother Family Medical History: CVA/TIA (Mother at age 65 from CVA.) Additional Family Medical History / Comment(s): Mother at age 65 from CVA. Brother(s) Family Medical History: Pulmonary Embolus (Patient had one brother who at the age of 61 from pulmonary embolism.) Additional Family Medical History / Comment(s): Patient had 1 brother that at age 61 from pulmonary embolism. Sister(s) Family Medical History: No Reported History (Patient had 3 sisters one of his sisters from of back trouble.) Additional Family Medical History / Comment(s): Patient had 3 sisters and one from back trouble. Daughter(s) Family Medical History: No Reported History (Patient has one daughter no major medical problems) Additional Family Medical History / Comment(s): Patient has one daughter with no major medical problems. Son(s) Family Medical History: No Reported History (Patient has one son no major medical problems) Additional Family Medical History / Comment(s): Patient has one son with no major medical problems. Medications and Allergies Home Medications Medication Instructions Recorded Confirmed Type Atorvastatin Calcium [Lipitor] 20 mg PO HS 05/04/14 04/16/18 History Furosemide [Lasix] 20 mg PO DAILY 05/04/14 04/16/18 History amLODIPine [Norvasc] 10 mg PO DAILY #30 tab 12/29/14 04/16/18 Rx Lisinopril [Prinivil] 10 mg PO DAILY 12/14/15 04/16/18 History Tamsulosin [Flomax] 0.4 mg PO DAILY 09/25/16 04/16/18 History ALPRAZolam [Xanax] 0.25 mg PO TID PRN 04/16/18 04/16/18 History Acetaminophen [Tylenol Arthritis] 650 mg PO DAILY 04/16/18 04/16/18 History Aspirin EC [Ecotrin Low Dose] 81 mg PO DAILY 04/16/18 04/16/18 History Atenolol [Tenormin] 25 mg PO DAILY #30 tab 04/16/18 Rx Fluticasone Nasal [place] [Flonase 2 spr EA NOSTRIL DAILY 04/16/18 04/16/18 History Nasal [place]] Nitroglycerin Sl Tabs [Nitrostat] 0.4 mg SUBLINGUAL Q5M PRN 04/16/18 04/16/18 History Spironolactone [Aldactone] 25 mg PO DAILY 04/16/18 04/16/18 History Allergies Allergy/AdvReac Type Severity Reaction Status Date / Time No Known Allergies Allergy Verified 04/16/18 08:46 Physical Exam Vitals: Vital Signs Temp Pulse Pulse Resp BP BP Pulse Ox 04/16/18 11:46 97.6 F 60 18 143/62 98 04/16/18 07:57 97.3 F L 60 18 152/82 95 04/16/18 05:21 61 19 04/16/18 05:15 97.1 F L 61 19 165/75 98 04/16/18 04:33 97.1 F L 61 19 165/75 98 04/16/18 03:47 60 16 161/74 96 04/16/18 01:14 98 F 85 18 175/68 Intake and Output 04/15/18 04/16/18 04/16/18 22:59 06:59 14:59 Intake Total 0 480 Balance 0 480 Intake: Oral 0 480 Other: Voiding Method Toilet # Voids 1 Weight 120.8 kg General appearance: no acute distress - EENT Eyes: anicteric sclerae, PERRLA, no ptosis, no scleral icterus, normal appearance ENT: hearing grossly normal, normal oropharynx, no thrush Ears: bilateral: normal - Neck Neck: no lymphadenopathy, normal ROM, no rigidity, no stridor, no thyromegaly, no neck tenderness Carotids: bilateral: upstroke normal - Respiratory Respiratory: bilateral: diminished, negative: dullness, rales, rhonchi, wheezing , prolonged expiration, prolonged inspiration - Cardiovascular Rhythm: regularly irregular (Permanent pacemaker.) Heart sounds: normal: S1, S2 Abnormal Heart Sounds: systolic murmur - Gastrointestinal General gastrointestinal: normal bowel sounds, soft, no splenomegaly, no tenderness, no umbilical hernia, no ventral hernia - Integumentary Integumentary: normal, normal turgor - Neurologic Neurologic: CNII-XII intact, full range of motion to both hands and wrist. Superannuation Clerk are strong bilaterally. - Musculoskeletal Musculoskeletal: strength equal bilaterally - Psychiatric Psychiatric: A&O x's 3, appropriate affect, intact judgment & insight Results CBC & Chem 7: 04/16/18 01:40 04/16/18 01:40 Labs: Abnormal Lab Results - Last 24 Hours (Table) 04/16/18 04/16/18 04/16/18 Range/Units 01:40 01:40 01:40 RBC 3.54 L (4.30-5.90) m/uL Hgb 11.1 L (13.0-17.5) gm/dL Hct 33.1 L (39.0-53.0) % Plt Count 123 L (150-450) k/uL Potassium 5.4 H (3.5-5.1) mmol/L Chloride 112 H (98-107) mmol/L BUN 40 H (9-20) mg/dL Creatinine 2.10 H (0.66-1.25) mg/dL Glucose 120 H (74-99) mg/dL AST 16 L (17-59) U/L Total Creatine Kinase 40 L (55-170) U/L 04/16/18 Range/Units 08:01 RBC (4.30-5.90) m/uL Hgb (13.0-17.5) gm/dL Hct (39.0-53.0) % Plt Count (150-450) k/uL Potassium (3.5-5.1) mmol/L Chloride (98-107) mmol/L BUN (9-20) mg/dL Creatinine (0.66-1.25) mg/dL Glucose (74-99) mg/dL AST (17-59) U/L Total Creatine Kinase 37 L (55-170) U/L Thrombosis Risk Factor Assmnt - DVT/VTE Prophylaxis DVT/VTE Prophylaxis: Pharmacologic Prophylaxis ordered - Choose All That Apply Any of the Below Risk Factors Present?: Yes Each Factor Represents 1 point: Obesity (BMI >25) Other Risk Factors: Yes Each Risk Factor Represents 3 Points: Elevated anticardiolipin antibodies Other congenital or acquired thrombophilia - If yes, enter type in comment: No Thrombosis Risk Factor Assessment Total Risk Factor Score: 4 Thrombosis Risk Factor Assessment Level: Moderate Risk Assessment and Plan Plan: 1. Numbness in bilateral hands possibly secondary to degenerative cervical spine with facet arthropathy and multilevel foraminal encroachment. MRI is recommended. This may also be related to carpal tunnel syndrome. Patient will need further workup as an outpatient. Cardiology consult is appreciated. 2. Coronary artery disease status post PCI and stent placement of the LAD back in 2008 . Continue the patient on aspirin 81 mg once every day, atenolol 25 mg orally once every day, Lipitor 20 mg at bedtime. 3. Hypertension and hypertensive cardiovascular disease. Continue atenolol 25 mg orally once every day, amlodipine 10 mg orally once every day, Lasix 20 mg daily, lisinopril 10 mg daily, spironolactone 25 mg daily. 4. Hyperlipidemia . continue the patient on Lipitor 20 mg orally once every day. 5. Bilateral lower extremity edema continue the patient on Lasix 20 mg once every day. 6. History of bladder cancer currently in remission under the care of urology status post BCG injection. 7. History of Delacruz's palsy. 8. History of prediabetes, low-carb diet. 9. Obesity with possible obstructive sleep apnea patient will need to go for polysomnogram as an outpatient. 10. Chronic kidney disease stage III. Stable at this time. Patient placed as an observation status. Discharge plan: Return home Impression and plan of care have been directed as dictated by the signing physician. Razia Lanier nurse practitioner acting as scribe for signing physician.
[2018-04-16] MEDS ORDERED: ATORVASTATIN 20 MG TAB PO SCH (21:00)
[2018-04-17] MEDS ORDERED: ASPIRIN 325 MG TAB PO SCH (09:00)
[2018-04-17] MEDS ORDERED: ASPIRIN 81 MG PO SCH (09:00)
[2018-04-17] MEDS ORDERED: ATENOLOL 25 MG TAB PO SCH (09:00)
== END 2018-04-16 13:47 | disposition home or self-care (01) ==
LOC: EC 01:04 → 6SEL 04:22
PROVIDERS: ADMIT Internal Medicine; ATTEND Internal Medicine
DX: R20.0 Anesthesia of skin (principal); M79.602 Pain in left arm; M79.601 Pain in right arm; R61 Generalized hyperhidrosis; I13.10 Hypertensive heart and chronic kidney disease without heart failure, with stage 1 through stage 4 chronic kidney disease, or unspecified chronic kidney disease; N18.3 Chronic kidney disease, stage 3 (moderate); I25.10 Atherosclerotic heart disease of native coronary artery without angina pectoris; Z95.5 Presence of coronary angioplasty implant and graft; E78.5 Hyperlipidemia, unspecified; I48.2 Chronic atrial fibrillation; I08.3 Combined rheumatic disorders of mitral, aortic and tricuspid valves; M19.90 Unspecified osteoarthritis, unspecified site; M50.30 Other cervical disc degeneration, unspecified cervical region; M46.92 Unspecified inflammatory spondylopathy, cervical region; I27.20 Pulmonary hypertension, unspecified; E66.9 Obesity, unspecified; Z68.35 Body mass index [BMI] 35.0-35.9, adult; D68.61 Antiphospholipid syndrome; R60.0 Localized edema; R73.03 Prediabetes; Z79.82 Long term (current) use of aspirin; Z79.51 Long term (current) use of inhaled steroids; Z79.899 Other long term (current) drug therapy; Z95.0 Presence of cardiac pacemaker; Z87.440 Personal history of urinary (tract) infections; Z85.51 Personal history of malignant neoplasm of bladder; Z86.69 Personal history of other diseases of the nervous system and sense organs; Z87.01 Personal history of pneumonia (recurrent); Z90.89 Acquired absence of other organs; Z96.652 Presence of left artificial knee joint; Z87.891 Personal history of nicotine dependence; Z82.49 Family history of ischemic heart disease and other diseases of the circulatory system; Z82.3 Family history of stroke
CPT/HCPCS: 99284 ×2; 96360 ×2; 96361 ×3; 36415; 80053; 82550; 82553; 83735; 84484; 85025; 85610; 85730; 72050; 71046; G0378

== ENCOUNTER 2018-10-12 19:09 | Emergency (ER) | payer MEDICARE, BC ==
[2018-10-12 20:08] LABS: Glucose,Whole Blood 128 mg/dL (75-99)
--- NOTE | 2018-10-12 21:13 | ED ---
General Adult HPI - General Chief complaint: Neuro Symptoms/Deficit Stated complaint: arm/back/head pain Source: patient, family Mode of arrival: ambulatory Limitations: no limitations - Related Data Home Medications Medication Instructions Recorded Confirmed Atorvastatin Calcium [Lipitor] 20 mg PO HS 05/04/14 10/12/18 Furosemide [Lasix] 20 mg PO DAILY 05/04/14 10/12/18 Lisinopril [Prinivil] 10 mg PO DAILY 12/14/15 10/12/18 Tamsulosin [Flomax] 0.4 mg PO DAILY 09/25/16 10/12/18 ALPRAZolam [Xanax] 0.25 mg PO TID PRN 04/16/18 10/12/18 Aspirin EC [Ecotrin Low Dose] 81 mg PO DAILY 04/16/18 10/12/18 Nitroglycerin Sl Tabs [Nitrostat] 0.4 mg SUBLINGUAL Q5M PRN 04/16/18 10/12/18 Spironolactone [Aldactone] 25 mg PO DAILY 04/16/18 10/12/18 Magnesium Oxide [Mag-Ox] 400 mg PO DAILY 10/12/18 10/12/18 Previous Rx's Medication Instructions Recorded amLODIPine [Norvasc] 10 mg PO DAILY #30 tab 12/29/14 Atenolol [Tenormin] 25 mg PO DAILY #30 tab 04/16/18 Allergies Allergy/AdvReac Type Severity Reaction Status Date / Time No Known Allergies Allergy Verified 10/12/18 20:28 Review of Systems ROS Statement: Those systems with pertinent positive or pertinent negative responses have been documented in the HPI. ROS Other: All systems not noted in ROS Statement are negative. 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 History of Any Multi-Drug Resistant Organisms: None Reported Past Surgical History: Appendectomy, Heart Catheterization, Heart Catheterization With Stent, Joint Replacement, Pacemaker Additional Past Surgical History / Comment(s): 10/03/08 PTCA with stenting of LAD , partial LEFT KNEE REPLACEMENT, BLADDER SCOPE recently. Past Anesthesia/Blood Transfusion Reactions: No Reported Reaction Date of Last Stent Placement:: 10/03/08 Type of Cardiac Device: Permanent Pacemaker Device Placement Date:: 2015 Past Psychological History: No Psychological Hx Reported Smoking Status: Former smoker Past Alcohol Use History: Rare Past Drug Use History: None Reported - Past Family History Father Family Medical History: Coronary Artery Disease (CAD), Myocardial Infarction (SC ) (Father at age of 63 from SC.) Additional Family Medical History / Comment(s): Father at age of 63 from SC. Mother Family Medical History: CVA/TIA (Mother at age 65 from CVA.) Additional Family Medical History / Comment(s): Mother at age 65 from CVA. Brother(s) Family Medical History: Pulmonary Embolus (Patient had one brother who at the age of 61 from pulmonary embolism.) Additional Family Medical History / Comment(s): Patient had 1 brother that at age 61 from pulmonary embolism. Sister(s) Family Medical History: No Reported History (Patient had 3 sisters one of his sisters from of back trouble.) Additional Family Medical History / Comment(s): Patient had 3 sisters and one from back trouble. Daughter(s) Family Medical History: No Reported History (Patient has one daughter no major medical problems) Additional Family Medical History / Comment(s): Patient has one daughter with no major medical problems. Son(s) Family Medical History: No Reported History (Patient has one son no major medical problems) Additional Family Medical History / Comment(s): Patient has one son with no major medical problems. General Exam Limitations: no limitations Course Vital Signs 10/12/18 19:44 Temperature 98.4 F Pulse Rate 74 Respiratory 20 Rate Blood Pressure 144/68 O2 Sat by Pulse 97 Oximetry Medical Decision Making - Medical Decision Making Dictation was produced using [employer] dictation software. please excuse any grammatical, word or spelling errors. Chief Complaint: 83-year-old male past medical history of A. fib, coronary artery disease, hypertension, pacemaker presents with episodic neurologic symptoms. History of Present Illness: States that he had a 15 second episode of bilateral hand paresthesias, headache and left occipital numbness. Patient has history of pacemaker. Denies any chest pain. Patient states she's had symptoms like this in the past. He gets frequent pacemaker checks every 6 months. Patient has no complaints at this time. He is concerned that he had some sort of event. Patient states his symptoms were paresthesias. There are strong left and spontaneously resolved. The ROS documented in this emergency department record has been reviewed and confirmed by me. Those systems with pertinent positive or negative responses have been documented in the HPI. All other systems are other negative and/or noncontributory. PHYSICAL EXAM: General Impression: Alert and oriented x3, not in acute distress HEENT: Normocephalic atraumatic, extra-ocular movements intact, pupils equal and reactive to light bilaterally, mucous membranes moist. Cardiovascular: Heart regular rate and rhythm, S1&S2 audible, no murmurs, rubs or gallops Chest: Lungs clear to auscultation bilaterally, no rhonchi, no wheeze, no rales Abdomen: Bowel sounds present, abdomen soft, non-tender, non-distended, no organomegaly Musculoskeletal: Pulses present and equal in all extremities, no peripheral edema Motor: Power 5/5 bilaterally, no focal deficits noted Neurological: CN II-XII grossly intact, no focal motor or sensory deficits noted Skin: Intact with no visualized rashes Psych: Normal affect and mood ED course: 83y old male presents with 15 second episode of paresthesias to his hand and posterior head. Vital signs upon arrival are within acceptable limits.Laboratory evaluation obtained. CBC is grossly within and baseline for patient. Patient's potassium 5.6. Rest metabolic panel appears to be around patient's baseline. Urinalysis unremarkable. Patient had his pacemaker interrogated. There are no events on the pacemaker to coincide with the event today. Patient given Lasix for mildly elevated potassium. Patient's told to avoid any potassium sparing foods. Advised to follow-up primary care physician for repeat potassium check. Patient advised to return to the emergency department and repeat symptoms. - Lab Data Result diagrams: 10/12/18 20:15 10/12/18 20:15 Lab Results 10/12/18 10/12/18 10/12/18 Range/Units 20:03 20:15 20:15 WBC 4.5 (3.8-10.6) k/uL RBC 3.73 L (4.30-5.90) m/uL Hgb 11.6 L (13.0-17.5) gm/dL Hct 36.1 L (39.0-53.0) % MCV 96.7 (80.0-100.0) fL MCH 31.0 (25.0-35.0) pg MCHC 32.0 (31.0-37.0) g/dL RDW 13.7 (11.5-15.5) % Plt Count 107 L (150-450) k/uL Neutrophils % 69 % Lymphocytes % 21 % Monocytes % 7 % Eosinophils % 1 % Basophils % 0 % Neutrophils # 3.1 (1.3-7.7) k/uL Lymphocytes # 0.9 L (1.0-4.8) k/uL Monocytes # 0.3 (0-1.0) k/uL Eosinophils # 0.1 (0-0.7) k/uL Basophils # 0.0 (0-0.2) k/uL Sodium 140 (137-145) mmol/L Potassium 5.6 H (3.5-5.1) mmol/L Chloride 108 H (98-107) mmol/L Carbon Dioxide 22 (22-30) mmol/L Anion Gap 10 mmol/L BUN 38 H (9-20) mg/dL Creatinine 1.78 H (0.66-1.25) mg/dL Est GFR (CKD-EPI)AfAm 40 (>60 ml/min/1.73 sqM) Est GFR (CKD-EPI)NonAf 34 (>60 ml/min/1.73 sqM) Glucose 125 H (74-99) mg/dL POC Glucose (mg/dL) 128 H (75-99) mg/dL POC Glu Recovery Manager ID Rosa Barrientos Calcium 9.1 (8.4-10.2) mg/dL Magnesium 1.8 (1.6-2.3) mg/dL Total Bilirubin 1.6 H (0.2-1.3) mg/dL AST 19 (17-59) U/L ALT 21 (21-72) U/L Alkaline Phosphatase 69 (38-126) U/L Troponin I (0.000-0.034) ng/mL Total Protein 6.8 (6.3-8.2) g/dL Albumin 4.3 (3.5-5.0) g/dL Lipase 116 (23-300) U/L Urine Color Urine Appearance (Clear) Urine pH (5.0-8.0) Ur Specific [place] (1.001-1.035) Urine Protein (Negative) Urine Glucose (UA) (Negative) Urine Ketones (Negative) Urine Blood (Negative) Urine Nitrite (Negative) Urine Bilirubin (Negative) Urine Urobilinogen (<2.0) mg/dL Ur Leukocyte Esterase (Negative) Urine RBC (0-5) /hpf Urine WBC (0-5) /hpf Ur Squamous Epith Cells (0-4) /hpf Hyaline Casts (0-2) /lpf Urine Mucus (None) /hpf 10/12/18 10/12/18 Range/Units 20:15 20:15 WBC (3.8-10.6) k/uL RBC (4.30-5.90) m/uL Hgb (13.0-17.5) gm/dL Hct (39.0-53.0) % MCV (80.0-100.0) fL MCH (25.0-35.0) pg MCHC (31.0-37.0) g/dL RDW (11.5-15.5) % Plt Count (150-450) k/uL Neutrophils % % Lymphocytes % % Monocytes % % Eosinophils % % Basophils % % Neutrophils # (1.3-7.7) k/uL Lymphocytes # (1.0-4.8) k/uL Monocytes # (0-1.0) k/uL Eosinophils # (0-0.7) k/uL Basophils # (0-0.2) k/uL Sodium (137-145) mmol/L Potassium (3.5-5.1) mmol/L Chloride (98-107) mmol/L Carbon Dioxide (22-30) mmol/L Anion Gap mmol/L BUN (9-20) mg/dL Creatinine (0.66-1.25) mg/dL Est GFR (CKD-EPI)AfAm (>60 ml/min/1.73 sqM) Est GFR (CKD-EPI)NonAf (>60 ml/min/1.73 sqM) Glucose (74-99) mg/dL POC Glucose (mg/dL) (75-99) mg/dL POC Glu Recovery Manager ID Calcium (8.4-10.2) mg/dL Magnesium (1.6-2.3) mg/dL Total Bilirubin (0.2-1.3) mg/dL AST (17-59) U/L ALT (21-72) U/L Alkaline Phosphatase (38-126) U/L Troponin I <0.012 (0.000-0.034) ng/mL Total Protein (6.3-8.2) g/dL Albumin (3.5-5.0) g/dL Lipase (23-300) U/L Urine Color Light Yellow Urine Appearance Clear (Clear) Urine pH 5.5 (5.0-8.0) Ur Specific [place] 1.010 (1.001-1.035) Urine Protein Negative (Negative) Urine Glucose (UA) Negative (Negative) Urine Ketones Negative (Negative) Urine Blood Small H (Negative) Urine Nitrite Negative (Negative) Urine Bilirubin Negative (Negative) Urine Urobilinogen <2.0 (<2.0) mg/dL Ur Leukocyte Esterase Negative (Negative) Urine RBC 4 (0-5) /hpf Urine WBC 1 (0-5) /hpf Ur Squamous Epith Cells <1 (0-4) /hpf Hyaline Casts 1 (0-2) /lpf Urine Mucus Rare H (None) /hpf Disposition Clinical Impression: Wellness examination Disposition: HOME SELF-CARE Condition: Good Instructions: Hyperkalemia (ED) Is patient prescribed a controlled substance at d/c from ED?: No Referrals: Jose Carlos Hicks MD [Primary Care Provider] - 1-2 days Time of Disposition: 00:52
[2018-10-12 21:32] LABS: Basophils % (A) 0 %; Eosinophils # (A) 0.1 k/uL (0-0.7); Eosinophils % (A) 1 %; HCT 36.1 % (39.0-53.0); HGB 11.6 gm/dL (13.0-17.5); Lymphocytes # (A) 0.9 k/uL (1.0-4.8); Lymphocytes % (A) 21 %; MCV 96.7 fL (80.0-100.0); Mean Platelet Volume 7.7; Monocytes # (A) 0.3 k/uL (0-1.0); Monocytes % (A) 7 %; Neutrophils # (A) 3.1 k/uL (1.3-7.7); Neutrophils % (A) 69 %; Platelet Count 107 k/uL (150-450); RBC 3.73 m/uL (4.30-5.90); RDW 13.7 % (11.5-15.5); WBC 4.5 k/uL (3.8-10.6)
[2018-10-12 21:40] LABS: Appearance,Urine Clear (Clear); Bilirubin,Urine Negative (Negative); Blood,Urine Small (Negative); Color,Urine Light Yellow; Glucose,Urine (UA) Negative (Negative); Hyaline Casts,Urine 1 /lpf (0-2); Ketones,Urine Negative (Negative); Leukocyte Esterase,Urine Negative (Negative); Mucus,Urine Rare /hpf; Nitrite,Urine Negative (Negative); PH, Urine 5.5 (5.0-8.0); Protein,Urine Negative (Negative); RBC,Urine 4 /hpf (0-5); Squamous Epithelial Cell,Urine <1 /hpf (0-4); Urobilinogen,Urine <2.0 mg/dL (<2.0)
[2018-10-12 21:42] LABS: Albumin 4.3 g/dL (3.5-5.0); Calcium 9.1 mg/dL (8.4-10.2); Magnesium 1.8 mg/dL (1.6-2.3); Potassium 5.6 mmol/L (3.5-5.1); Total Bilirubin 1.6 mg/dL (0.2-1.3); Total Protein 6.8 g/dL (6.3-8.2)
--- NOTE | 2018-10-12 21:43 | XR ---
EXAMINATION TYPE: XR chest 2V DATE OF EXAM: 10/12/2018 COMPARISON: 04/16/2018 HISTORY: Short of breath TECHNIQUE: Frontal and lateral views of the chest are obtained. FINDINGS: Heart is enlarged. There is no heart failure. There are small calcified granuloma in the l eft midlung. There is left axillary pacemaker with the lead tips in the right ventricle. There are ch est leads. Costophrenic angles are clear. IMPRESSION: Cardiomegaly. Old granulomatous disease. No acute lung disease. No change.
[2018-10-13] MEDS ORDERED: FUROSEMIDE 10 MG/ML 4 ML VIAL IV STA (00:50)
[2018-10-13 01:16] VITALS: BP 150/71; PULSE 102; RESP 16
[2018-10-13 01:26] VITALS: TEMP 98
[2018-10-13 14:25] LABS: Hemoglobin A1C 6.2 % (4.0-6.0)
== END 2018-10-13 01:24 | disposition home or self-care (01) ==
LOC: EC 19:09
DX: Z00.00 Encounter for general adult medical examination without abnormal findings (principal); E87.5 Hyperkalemia; R20.2 Paresthesia of skin; R51 Headache; I25.119 Atherosclerotic heart disease of native coronary artery with unspecified angina pectoris; I48.91 Unspecified atrial fibrillation; E78.5 Hyperlipidemia, unspecified; I12.9 Hypertensive chronic kidney disease with stage 1 through stage 4 chronic kidney disease, or unspecified chronic kidney disease; N18.3 Chronic kidney disease, stage 3 (moderate); M19.90 Unspecified osteoarthritis, unspecified site; Z85.51 Personal history of malignant neoplasm of bladder; Z87.891 Personal history of nicotine dependence; Z79.82 Long term (current) use of aspirin; Z79.899 Other long term (current) drug therapy; Z95.5 Presence of coronary angioplasty implant and graft; Z95.0 Presence of cardiac pacemaker; Z96.652 Presence of left artificial knee joint
CPT/HCPCS: 36415; 80053; 83690; 83735; 84484; 85025; 81001; 83036; 71046; 99284; 96374; J1940

== ENCOUNTER → 2018-11-05 | Outpatient (CLI) | payer MEDICARE, BC | END | disposition home or self-care (01) | LOC: LABWHC1 09:39 | PROVIDERS: ATTEND Urology | DX: R35.0 Frequency of micturition (principal) | CPT/HCPCS: 36415; 84153 ==

== ENCOUNTER → 2019-06-25 | Outpatient (CLI) | payer MEDICARE, BC ==
--- NOTE | 2019-06-25 16:46 | US ---
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 EXAM MEASUREMENTS: Right Kidney: 11.6 x 5.8 x 5.2 cm Left Kidney: 11.0 x 5.5 x 5.1 cm Right Kidney: multiple cysts, largest measures 4.0 x 2.9 x 3.4 cm. There is a solid area distorting c ontour measures 2.9 x 2.4 x 2.3 cm. Left Kidney: Multiple cyst, largest measures 2.5 x 1.8 x 2.3 cm. There is also a mass effect that santi sures 3.2 x 2.8 x 3.2 cm, this area has vascular flow, question mass versus normal tissue. Bladder: not well distended Bilateral Jets seen: No There is no evidence for hydronephrosis at this point in time. No nephrolithiasis is seen. No carlos s are identified. The urinary bladder is anechoic. Bilateral ureteral jets are seen. IMPRESSION: 1. Bilateral solid masses are difficult to exclude. CT of the abdomen is recommended with contrast. M ultiple bilateral cysts noted as well.
== END | disposition home or self-care (01) ==
LOC: RADUSWWP 15:24
PROVIDERS: ATTEND Urology
DX: Q61.02 Congenital multiple renal cysts (principal); D49.4 Neoplasm of unspecified behavior of bladder
CPT/HCPCS: 76770

== ENCOUNTER → 2019-07-09 | Outpatient (CLI) | payer MEDICARE, BC ==
--- NOTE | 2019-07-09 11:10 | CT ---
EXAMINATION TYPE: CT abdomen wo con DATE OF EXAM: 07/09/2019 COMPARISON: CT 08/15/2017, ultrasound 06/25/2019 HISTORY: Renal mass CT DLP: 820 mGycm Automated exposure control for dose reduction was used. TECHNIQUE: Helical acquisition of images was performed from the lung bases through the top of iliac crest to include entire abdomen. CONTRAST: Performed with Oral Contrast and without IV contrast. FINDINGS: The heart is markedly enlarged. There is a pericardial effusion present similar to prior CT exam. Intracardiac lead is present in the right ventricle. LUNG BASES: No significant abnormality is appreciated. LIVER/GB: No significant abnormality is appreciated. PANCREAS: No significant abnormality is seen. SPLEEN: Enlarged. ADRENALS: No significant abnormality is seen. KIDNEYS: Similar to prior exam there are multiple bilateral cortical cysts. Within the right kidney h owever at the midpole anteriorly and laterally there is an interval increase in the attenuation, Houn sfield units is measuring 39. The lesion measures approximately additionally in exophytic location at the lower pole there is a lesion showing Hounsfield units 24 which is increased in size and measures 3.3 cm. BOWEL: No significant abnormality is seen. LYMPH NODES: No significan abnormality is appreciated. OSSEOUS STRUCTURES: Degenerative disc changes are present in the visualized spine. FREE AIR: No Free Air visible ASCITES: None visible. RETROPERITONEAL ADENOPATHY: No Retroperitoneal Adenopathy visible. OTHER: IMPRESSION: NONCONTRAST EXAM. NOTED ON ULTRASOUND, DIFFICULT TO EXCLUDE SOLID RENAL MASSES ALTHOUGH FINDINGS M AY BE DUE TO PROTEINACEOUS CYSTS. MARKED CARDIOMEGALY, PERICARDIAL EFFUSION. Stable splenomegaly.
== END | disposition home or self-care (01) ==
LOC: RADCTMAIN 08:05
PROVIDERS: ATTEND Urology
DX: R16.1 Splenomegaly, not elsewhere classified (principal); N28.89 Other specified disorders of kidney and ureter
CPT/HCPCS: 74150

== ENCOUNTER 2020-05-18 06:04 | Day surgery (SDC) | payer MEDICARE, BC ==
[~2020-05-18 06:04] MED LIST: LACTATED RINGERS 1,000 ML IV SCH; SODIUM CHLORIDE 0.9% 1,000 ML IV SCH
[2020-05-18] MEDS ORDERED: ONDANSETRON 4 MG/2 ML VIAL IVP ONE (06:05)
[2020-05-18] MEDS ORDERED: MIDAZOLAM 2 MG/2 ML VIAL IVP ONE (06:05)
[2020-05-18] MEDS ORDERED: fentaNYL (PF) 50 MCG/ML 2 ML AMP IVP ONE (06:05)
[2020-05-18 06:49] LABS: Basophils % (A) 1 %; Eosinophils # (A) 0.1 k/uL (0-0.7); Eosinophils % (A) 2 %; HCT 35.3 % (39.0-53.0); HGB 11.3 gm/dL (13.0-17.5); Lymphocytes % (A) 17 %; MCH 30.8 pg (25.0-35.0); MCV 96.2 fL (80.0-100.0); Mean Platelet Volume 8.5; Monocytes # (A) 0.4 k/uL (0-1.0); Monocytes % (A) 7 %; Neutrophils # (A) 4.3 k/uL (1.3-7.7); Neutrophils % (A) 72 %; Platelet Count 116 k/uL (150-450); RBC 3.67 m/uL (4.30-5.90); RDW 13.4 % (11.5-15.5); WBC 5.9 k/uL (3.8-10.6)
[2020-05-18 07:00] LABS: Calcium 8.5 mg/dL (8.4-10.2); Potassium 4.5 mmol/L (3.5-5.1)
[2020-05-18] MEDS ORDERED: ceFAZolin 1,000 MG in SODIUM CHLORIDE 0.9% IRRIGATIO 250 ML IRRIGATION ONE (07:00)
[2020-05-18] MEDS ORDERED: MIDAZOLAM 2 MG/2 ML VIAL ONE (07:20)
[2020-05-18] MEDS ORDERED: ONDANSETRON 4 MG/2 ML VIAL ONE (07:20)
[2020-05-18] MEDS ORDERED: PROPOFOL 10 MG/ML 20 ML VIAL IV ONE (07:20)
[2020-05-18] MEDS ORDERED: fentaNYL (PF) 50 MCG/ML 2 ML AMP ONE (07:20)
[2020-05-18] MEDS ORDERED: SODIUM CHLORIDE 0.9% 1,000 ML IV ONE ×2 (07:27)
[2020-05-18] MEDS: IOPAMIDOL-250 50ML BTL IV ONE ×2 (07:45→08:48)
[2020-05-18] MEDS ORDERED: LIDOCAINE 1% INJ 10MG/ML (20 ML MDV) ONE (07:55)
[2020-05-18] MEDS ORDERED: LIDOCAINE 1% INJ 10MG/ML (20 ML MDV) SQ ONE ×2 (08:20→08:30)
--- NOTE | 2020-05-18 10:36 | P.PCN ---
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
[2020-05-18] MEDS ORDERED: HYDROcodone/APAP 5-325MG 1 EACH TAB PO PRN (10:44)
[2020-05-18] MEDS ORDERED: ACETAMINOPHEN IV (For NPO) 1,000 MG in EMPTY BAG 1 BAG IVPB ONE (10:44)
[2020-05-18] MEDS ORDERED: ACETAMINOPHEN TAB 325 MG TAB PO PRN (10:44)
--- NOTE | 2020-05-18 10:58 | P.PRLE ---
RE: Nikkie Lucero Dear Jose Carlos Mr. Nikkie Lucero underwent an upgrade to a biventricular pacemaker He has congestive heart failure with reduced LV systolic function in association with greater than 90% RV pacing An LV lead was placed in the anterior vein in a very stable position with excellent thresholds Hopefully with biventricular pacing his heart failure symptoms as well as his LV systolic function improves over time I'm making the following changes in his medications Discontinue the following Atenolol Amlodipine Oral potassium gluconate New medications Carvedilol 6.25 mg twice daily Spironolactone 12.5 mg by mouth daily Continue Lisinopril 10 mg by mouth daily Lasix 20 mg by mouth daily Baby aspirin Atorvastatin
[2020-05-18] MEDS ORDERED: SPIRONOLACTONE 25 MG TAB PO SCH (11:00)
--- NOTE | 2020-05-18 11:01 | P.DS ---
Providers Attending physician: Felipe Anderson Primary care physician: Jose Carlos [facility] Course: Mr. Nikkie Lucero underwent an upgrade to a biventricular pacemaker He has congestive heart failure with reduced LV systolic function in association with greater than 90% RV pacing An LV lead was placed in the anterior vein in a very stable position with excellent thresholds Hopefully with biventricular pacing his heart failure symptoms as well as his LV systolic function improves over time I'm making the following changes in his medications Discontinue the following Atenolol Amlodipine Oral potassium gluconate New medications Carvedilol 6.25 mg twice daily Spironolactone 12.5 mg by mouth daily Continue Lisinopril 10 mg by mouth daily Lasix 20 mg by mouth daily Baby aspirin Atorvastatin Final impression Nonischemic cardio myopathy Left ventricular ejection fraction 45% Congestive heart failure 2-3 Greater than 90% RV pacing Chronic kidney disease, creatinine 1.66, likely cardiorenal syndrome Hypertension Permanent atrial fibrillation Patient Refusal of anticoagulants despite knowing the risk of stroke I have discussed this with the patient Consideration for a left atrial appendage device Plan - Discharge Summary Discharge Rx Participant: No New Discharge Prescriptions: New Spironolactone [Aldactone] 12.5 mg PO DAILY #50 tablet Carvedilol [Coreg] 12.5 mg PO BID #180 tablet Discontinued atenoloL [Tenormin] 25 mg PO DAILY #30 tab amLODIPine [Norvasc] 5 mg PO DAILY Potassium Gluconate 99 mg PO DAILY No Action Furosemide [Lasix] 20 mg PO DAILY Atorvastatin Calcium [Lipitor] 20 mg PO HS Lisinopril [Prinivil] 10 mg PO DAILY Tamsulosin [Flomax] 0.4 mg PO DAILY Nitroglycerin Sl Tabs [Nitrostat] 0.4 mg SUBLINGUAL Q5M PRN PRN Reason: Chest Pain Aspirin EC [Ecotrin Low Dose] 81 mg PO DAILY ALPRAZolam [Xanax] 0.25 mg PO TID PRN PRN Reason: Anxiety Acetaminophen [Tylenol Arthritis] 650 mg PO DAILY Discharge Medication List Atorvastatin Calcium [Lipitor] 20 mg PO HS 05/04/14 [History] Furosemide [Lasix] 20 mg PO DAILY 05/04/14 [History] Lisinopril [Prinivil] 10 mg PO DAILY 12/14/15 [History] Tamsulosin [Flomax] 0.4 mg PO DAILY 09/25/16 [History] ALPRAZolam [Xanax] 0.25 mg PO TID PRN 04/16/18 [History] Aspirin EC [Ecotrin Low Dose] 81 mg PO DAILY 04/16/18 [History] Nitroglycerin Sl Tabs [Nitrostat] 0.4 mg SUBLINGUAL Q5M PRN 04/16/18 [History] Acetaminophen [Tylenol Arthritis] 650 mg PO DAILY 05/13/20 [History] Carvedilol [Coreg] 12.5 mg PO BID #180 tablet 05/18/20 [Rx] Spironolactone [Aldactone] 12.5 mg PO DAILY #50 tablet 05/18/20 [Rx] Follow up Appointment(s)/Referral(s): Felipe Anderson MD [STAFF PHYSICIAN] - 1 Week (Device clinic follow-up within 1 week. Please schedule before discharge Follow-up with Dr. Anderson/Citlaly Hagen/Belkis Castellanos in 3-4 months, office will call Antibiotics at 1:30 PM and 7:30 PM and discharge home by 8 PM today Pacemaker interrogation at 12 known today Chest x-ray portable today) Activity/Diet/Wound Care/Special Instructions: PATIENT EDUCATION MATERIAL Instructions following a heart rhythm device implant. 1. Keep dressing DRY for 5 DAYS. You may cover the area with Saran or Cling Wrap, prior to a shower. 2. The dressing will be removed in the Device Clinic at [facility]. Absorbable sutures were used to close the wound. 3. Avoid raising the left arm above the shoulder level. 4 week restriction 4. Avoid arm movements, like backscratching, rubbing the head, or pulling on a cord. 4 weeks restriction 5. Gentle range of motion movements of the shoulder, closest to the incision should be performed to avoid a frozen shoulder. (Pendulum exercises of the shoulder) 6. The opposite arm may be used freely. 7. Avoid driving for 7 days. 8. Avoid activities such as golfing, swimming, weed whacking, lifting more than 10 pounds weight, bowling, gymnastics and weight training/lifting. (6 weeks restriction) 9. Activities such as wood chopping with an axe, pull-ups in the gymnasium, power lifting, arc-welding, being close to home induction cooktops will always be a problem. 10. Arm sling is only a reminder not to raise the arm above the head. You do not need to keep the arm completely immobilized. Your free to move the arm and use it and for normal activities. In case of any problems, please call [facility], [place], @ [phone], Attention: Device Clinic Device clinic follow-up in 5 days Follow-up with primary rn outpatient surgery in 2-3 months Discharge Disposition: HOME SELF-CARE
[2020-05-18 11:28] VITALS: RESP 16
--- NOTE | 2020-05-18 12:10 | XR ---
EXAMINATION TYPE: XR chest 1V portable DATE OF EXAM: 05/18/2020 CLINICAL HISTORY: Lead pacemaker check. Post pacemaker insertion. TECHNIQUE: Frontal portable view of the chest obtained. COMPARISON: 10/12/2018 chest radiograph FINDINGS: There is a left-sided biventricular pacemaker with distal leads overlying the right and le ft ventricles. No evidence of lead discontinuity or fracture. No pneumothorax. Cardiomegaly unchanged . Mediastinal silhouette normal. No pneumothorax or pleural effusion. No displaced osseous fractures. IMPRESSION: Left-sided biventricular pacemaker leads overlie the right and left ventricles. No pneumo thorax.
--- NOTE | 2020-05-18 16:45 | PCN ---
PROCEDURE NOTE Mr. Lucero has cardiomyopathy, permanent atrial fibrillation, and greater than 90% RV pacing, underlying severe bradycardia. He has a single-chamber RV pacing lead. He is brought in for an upgrade to a biventricular pacemaker. Patient was brought to the EP lab in a fasting state. Written informed consent was obtained prior to the procedure. The left shoulder area was prepped and draped as per protocol; 1% lidocaine was used for local anesthesia. A 4 cm incision made in exactly over the previous surgical site. Dennys was excised and generator was explanted. The leads were freed from the surrounding soft tissue. The RV lead could have had a potential insulation break, which was minor, but at the end of the procedure we performed a lead repair using the [employer] lead repair kit. This lead was repaired with review of available materials and sleeve was placed and secured with 2 silk sutures. The left axillary vein access was performed and after an initial left upper extremity venogram. A venous sheath was placed. A coronary sinus sheath was placed. The coronary sinus was accessed. The coronary sinus os in the initial portion was superiorly oriented. This was a very large coronary sinus body and with the regular venogram, even the stent balloon would not occlude it completely. The balloon was then placed very distally, the sheath was placed further out for support and venogram was performed. This revealed an anterolateral vein and anteroseptal vein, the middle cardiac and the posterolateral vein originated from close to the os. The anterolateral vein was targeted, and the LV lead was placed in this vein. Excellent thresholds were obtained at the distal pole at 0.5 V at 0.4 milliseconds, 10 V test was negative. Pacing impedance 950 ohms. The RV lead pacing impedance was 580 ohms, pacing threshold 0.75 V at 0.4 milliseconds. The old generator was explanted. The explanted generator was a [employer] model #1160, serial #[id number]. The new biventricular pacemaker generator was a [employer] model #[id number], serial #[id number]. The new lead was secured. The leads and generator were then connected to the pacemaker and the pacemaker generator was placed in the subfascial pocket. The wound was closed in 3 layers and dressed per protocol. RESULTS: Successful upgrade to a biventricular pacemaker. LV lead placed in the anterolateral vein. Nikkie Lucero was brought in for a planned upgrade to a biventricular pacemaker. The left upper extremity venogram cinefluoroscopy of the leads was performed. The 15 mL IV dye was injected in the upper arm on the left side and a patent axillary and subclavian venous system was found and preparations were made for an upgrade to a biventricular pacemaker. The patient tolerated the procedure well without any acute complications. MMODL / IJN: [id number] /
[2020-05-18 16:53] VITALS: PULSE 59; TEMP 98
[2020-05-18 16:54] VITALS: BP 144/66
[2020-05-18] MEDS ORDERED: carvediloL 6.25 MG TAB PO SCH (17:30)
[2020-05-18] MEDS ORDERED: ATORVASTATIN 20 MG TAB PO SCH (21:00)
[2020-05-19] MEDS ORDERED: FUROSEMIDE 20 MG TAB PO SCH (09:00)
[2020-05-19] MEDS ORDERED: lisinopriL 10 MG TAB PO SCH (09:00)
[2020-05-19] MEDS ORDERED: ASPIRIN 81 MG PO SCH (09:00)
[2020-05-19] MEDS ORDERED: TAMSULOSIN 0.4 MG CAP.ER.24H PO SCH (09:00)
== END 2020-05-18 20:21 | disposition home or self-care (01) ==
LOC: CATHEP 06:04 → 1SOBS 10:17 → CATHEP 20:21
PROVIDERS: ATTEND Internal Medicine Clinical Cardiac Electrophysiology
DX: Z45.018 Encounter for adjustment and management of other part of cardiac pacemaker (principal); I50.22 Chronic systolic (congestive) heart failure; I48.21 Permanent atrial fibrillation; I42.0 Dilated cardiomyopathy; R00.1 Bradycardia, unspecified; I13.0 Hypertensive heart and chronic kidney disease with heart failure and stage 1 through stage 4 chronic kidney disease, or unspecified chronic kidney disease; N18.9 Chronic kidney disease, unspecified; I25.10 Atherosclerotic heart disease of native coronary artery without angina pectoris; I87.8 Other specified disorders of veins; E78.2 Mixed hyperlipidemia; Z95.5 Presence of coronary angioplasty implant and graft; Z72.0 Tobacco use; Z79.82 Long term (current) use of aspirin; Z79.899 Other long term (current) drug therapy; Z97.2 Presence of dental prosthetic device (complete) (partial); Z85.51 Personal history of malignant neoplasm of bladder; M19.90 Unspecified osteoarthritis, unspecified site
CPT/HCPCS: 33225; 33229; 80048; 85025; 71045; C1769 ×4; C1892; C1730; C1900; C2621; J0690 ×2; J2001; J2704; Q9966

== ENCOUNTER → 2020-07-17 | Outpatient (CLI) | payer MEDICARE, BC ==
--- NOTE | 2020-07-17 12:23 | CT ---
EXAMINATION TYPE: CT abdomen wo con DATE OF EXAM: 07/17/2020 COMPARISON: Prior CT 07/09/2019 HISTORY: Neoplasm of right kidney CT DLP: 617 mGycm Automated exposure control for dose reduction was used. TECHNIQUE: Helical acquisition of images was performed from the lung bases through the top of iliac crest to include entire abdomen. CONTRAST: Performed without Oral Contrast and without IV contrast. FINDINGS: Lack of intravenous contrast could compromise sensitivity the heart is markedly enlarged. There is a pericardial effusion. There are leads present within the right ventricle, coronary sinus. Small hiatal hernia is present. LUNG BASES: No significant abnormality is appreciated. LIVER/GB: No significant abnormality is appreciated. PANCREAS: No significant abnormality is seen. SPLEEN: No significant abnormality is seen. ADRENALS: No significant abnormality is seen. KIDNEYS: Right kidney shows an associated mass measuring 2.5 cm and increased attenuation, findings s imilar to prior exam, low density foci also present likely representing exophytic cysts. Cortical cys ts also present within the left kidney. BOWEL: No significant abnormality is seen. LYMPH NODES: No significant abnormality is appreciated. OSSEOUS STRUCTURES: Degenerative disc changes noted in the lumbar spine. FREE AIR: No Free Air visible ASCITES: None visible. RETROPERITONEAL ADENOPATHY: No Retroperitoneal Adenopathy visible. OTHER: Inferior vena cava is dilated IMPRESSION: STABLE SIZE OF RIGHT RENAL LESION, additional findings above
== END | disposition home or self-care (01) ==
LOC: RADCTMAIN 09:33
PROVIDERS: ATTEND Urology
DX: N28.1 Cyst of kidney, acquired (principal); N28.89 Other specified disorders of kidney and ureter; K44.9 Diaphragmatic hernia without obstruction or gangrene
CPT/HCPCS: 74150

== ENCOUNTER 2021-03-17 05:56 | Inpatient (IN) | payer MEDICARE, BC ==
[2021-03-17] MEDS ORDERED: SODIUM CHLORIDE 0.9% 500 ML 500 ML IV STA (06:14)
[2021-03-17] MEDS ORDERED: ONDANSETRON 4 MG/2 ML VIAL IVP STA (06:25)
--- NOTE | 2021-03-17 06:55 | ED ---
Abdominal Pain HPI - General Chief Complaint: Abdominal Pain Stated Complaint: Weakness Time Seen by Provider: 03/17/21 06:13 Source: patient, family, RN notes reviewed Mode of arrival: wheelchair Limitations: no limitations - History of Present Illness Initial Comments: This is an 85-year-old male presents emergency from chief complaint of generalized not feeling well, abdominal discomfort. Patient states he had a procedure by Dr. Spencer on Monday in which she states her medication injected for bladder cancer. Patient states his first round of this type medication. He states he [place] well since he had diarrhea Monday and Monday states that his lower abdominal area is uncomfortable he denies any decreased urine output states that he's had urinary incontinence and frequency which is an ongoing issue. Patient denies any melena, hematochezia, vomiting, fever. He states he is cold and is had some chills. - Related Data Home Medications Medication Instructions Recorded Confirmed Atorvastatin Calcium [Lipitor] 20 mg PO HS 05/04/14 05/18/20 Furosemide [Lasix] 20 mg PO DAILY 05/04/14 05/18/20 Lisinopril [Prinivil] 10 mg PO DAILY 12/14/15 05/18/20 Tamsulosin [Flomax] 0.4 mg PO DAILY 09/25/16 05/18/20 ALPRAZolam [Xanax] 0.25 mg PO TID PRN 04/16/18 05/13/20 Aspirin EC [Ecotrin Low Dose] 81 mg PO DAILY 04/16/18 05/18/20 Nitroglycerin Sl Tabs [Nitrostat] 0.4 mg SUBLINGUAL Q5M PRN 04/16/18 05/13/20 Acetaminophen [Tylenol Arthritis] 650 mg PO DAILY 05/13/20 05/18/20 Previous Rx's Medication Instructions Recorded Carvedilol [Coreg] 12.5 mg PO BID #180 tablet 05/18/20 Spironolactone [Aldactone] 12.5 mg PO DAILY #50 tablet 05/18/20 Allergies Allergy/AdvReac Type Severity Reaction Status Date / Time No Known Allergies Allergy Verified 03/17/21 06:09 Review of Systems ROS Statement: Those systems with pertinent positive or pertinent negative responses have been documented in the HPI. ROS Other: All systems not noted in ROS Statement are negative. Past Medical History Past Medical History: Atrial Fibrillation, Coronary Artery Disease (CAD), Cancer, Chest Pain / Angina, Hyperlipidemia, Hypertension, Osteoarthritis (OA), Pneumonia, Renal Disease Additional Past Medical History / Comment(s): SEE DR. HOLLOWAY'S UPDATED CARDIOVASCULAR HX. 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 History of Any Multi-Drug Resistant Organisms: None Reported Past Surgical History: Appendectomy, Heart Catheterization, Heart Cathet erization With Stent, Joint Replacement, Pacemaker Additional Past Surgical History / Comment(s): 10/03/08 PTCA with stenting of LAD, partial LEFT KNEE REPLACEMENT, BLADDER SCOPE recently. Past Anesthesia/Blood Transfusion Reactions: No Reported Reaction Date of Last Stent Placement:: 10/03/08 Type of Cardiac Device: Permanent Pacemaker Device Placement Date:: 2015 Past Psychological History: No Psychological Hx Reported Smoking Status: Never smoker Past Alcohol Use History: Rare Past Drug Use History: None Reported - Past Family History Father Family Medical History: Coronary Artery Disease (CAD), Myocardial Infarction ([place]) Additional Family Medical History / Comment(s): Father at age of 63 from [place]. Mother Family Medical History: CVA/TIA Additional Family Medical History / Comment(s): Mother at age 65 from CVA. Brother(s) Family Medical History: Pulmonary Embolus Additional Family Medical History / Comment(s): Patient had 1 brother that at age 61 from pulmonary embolism. Sister(s) Family Medical History: No Reported History Additional Family Medical History / Comment(s): Patient had 3 sisters and one from back trouble. Daughter(s) Family Medical History: No Reported History Additional Family Medical History / Comment(s): Patient has one daughter with no major medical problems. Son(s) Family Medical History: No Reported History Additional Family Medical History / Comment(s): Patient has one son with no major medical problems. General Exam General appearance: alert, in no apparent distress Neck exam: Present: normal inspection. Absent: tenderness, meningismus, lymphadenopathy Respiratory exam: Present: normal lung sounds bilaterally. Absent: respiratory distress, wheezes, rales, rhonchi, stridor Cardiovascular Exam: Present: regular rate, normal rhythm, normal heart sounds. Absent: systolic murmur, diastolic murmur, rubs, gallop, clicks GI/Abdominal exam: Present: soft, tenderness, normal bowel sounds. Absent: distended, guarding, rebound, rigid Back exam: Absent: CVA tenderness (R), CVA tenderness (L) Neurological exam: Present: alert Skin exam: Present: warm, dry, intact, normal color. Absent: rash Course Vital Signs 03/17/21 03/17/21 06:04 07:44 Temperature 98.7 F Pulse Rate 58 L 61 Respiratory 19 16 Rate Blood Pressure 150/60 141/63 O2 Sat by Pulse 98 97 Oximetry Medical Decision Making - Lab Data Result diagrams: 03/17/21 06:32 03/17/21 06:32 Lab Results 03/17/21 03/17/21 03/17/21 Range/Units 06:32 06:32 06:32 WBC 6.9 (3.8-10.6) k/uL RBC 2.72 L (4.30-5.90) m/uL Hgb 7.7 L (13.0-17.5) gm/dL Hct 24.0 L (39.0-53.0) % MCV 88.1 (80.0-100.0) fL MCH 28.2 (25.0-35.0) pg MCHC 32.0 (31.0-37.0) g/dL RDW 15.4 (11.5-15.5) % Plt Count 108 L (150-450) k/uL MPV 8.7 Neutrophils % 88 % Lymphocytes % 8 % Monocytes % 3 % Eosinophils % 0 % Basophils % 0 % Neutrophils # 6.0 (1.3-7.7) k/uL Lymphocytes # 0.6 L (1.0-4.8) k/uL Monocytes # 0.2 (0-1.0) k/uL Eosinophils # 0.0 (0-0.7) k/uL Basophils # 0.0 (0-0.2) k/uL Hypochromasia Moderate Sodium 139 (137-145) mmol/L Potassium 5.1 (3.5-5.1) mmol/L Chloride 107 (98-107) mmol/L Carbon Dioxide 20 L (22-30) mmol/L Anion Gap 12 mmol/L BUN 63 H (9-20) mg/dL Creatinine 2.50 H (0.66-1.25) mg/dL Est GFR (CKD-EPI)AfAm 26 (>60 ml/min/1.73 sqM) Est GFR (CKD-EPI)NonAf 22 (>60 ml/min/1.73 sqM) Glucose 122 H (74-99) mg/dL Plasma Lactic Acid Jere (0.7-2.0) mmol/L Calcium 8.7 (8.4-10.2) mg/dL Total Bilirubin 2.0 H (0.2-1.3) mg/dL AST 20 (17-59) U/L ALT 11 (4-49) U/L Alkaline Phosphatase 68 (38-126) U/L Total Protein 6.6 (6.3-8.2) g/dL Albumin 4.0 (3.5-5.0) g/dL Amylase 46 (30-110) U/L Lipase 107 (23-300) U/L Urine Color Yellow Urine Appearance Cloudy (Clear) Urine pH 5.0 (5.0-8.0) Ur Specific [place] 1.012 (1.001-1.035) Urine Protein Trace H (Negative) Urine Glucose (UA) Negative (Negative) Urine Ketones Negative (Negative) Urine Blood Small H (Negative) Urine Nitrite Positive (Negative) Urine Bilirubin Negative (Negative) Urine Urobilinogen <2.0 (<2.0) mg/dL Ur Leukocyte Esterase Large H (Negative) Urine RBC 6 H (0-5) /hpf Urine WBC >182 H (0-5) /hpf Urine WBC Clumps Many H (None) /hpf Ur Squamous Epith Cells <1 (0-4) /hpf Urine Bacteria Rare H (None) /hpf Urine Mucus Rare H (None) /hpf 03/17/21 Range/Units 06:32 WBC (3.8-10.6) k/uL RBC (4.30-5.90) m/uL Hgb (13.0-17.5) gm/dL Hct (39.0-53.0) % MCV (80.0-100.0) fL MCH (25.0-35.0) pg MCHC (31.0-37.0) g/dL RDW (11.5-15.5) % Plt Count (150-450) k/uL MPV Neutrophils % % Lymphocytes % % Monocytes % % Eosinophils % % Basophils % % Neutrophils # (1.3-7.7) k/uL Lymphocytes # (1.0-4.8) k/uL Monocytes # (0-1.0) k/uL Eosinophils # (0-0.7) k/uL Basophils # (0-0.2) k/uL Hypochromasia Sodium (137-145) mmol/L Potassium (3.5-5.1) mmol/L Chloride (98-107) mmol/L Carbon Dioxide (22-30) mmol/L Anion Gap mmol/L BUN (9-20) mg/dL Creatinine (0.66-1.25) mg/dL Est GFR (CKD-EPI)AfAm (>60 ml/min/1.73 sqM) Est GFR (CKD-EPI)NonAf (>60 ml/min/1.73 sqM) Glucose (74-99) mg/dL Plasma Lactic Acid Jere 1.6 (0.7-2.0) mmol/L Calcium (8.4-10.2) mg/dL Total Bilirubin (0.2-1.3) mg/dL AST (17-59) U/L ALT (4-49) U/L Alkaline Phosphatase (38-126) U/L Total Protein (6.3-8.2) g/dL Albumin (3.5-5.0) g/dL Amylase (30-110) U/L Lipase (23-300) U/L Urine Color Urine Appearance (Clear) Urine pH (5.0-8.0) Ur Specific [place] (1.001-1.035) Urine Protein (Negative) Urine Glucose (UA) (Negative) Urine Ketones (Negative) Urine Blood (Negative) Urine Nitrite (Negative) Urine Bilirubin (Negative) Urine Urobilinogen (<2.0) mg/dL Ur Leukocyte Esterase (Negative) Urine RBC (0-5) /hpf Urine WBC (0-5) /hpf Urine WBC Clumps (None) /hpf Ur Squamous Epith Cells (0-4) /hpf Urine Bacteria (None) /hpf Urine Mucus (None) /hpf Disposition Clinical Impression: Hx of bladder cancer, Anemia, UTI (urinary tract infection), ANI (acute kidney injury), Bilateral hydronephrosis Disposition: ADMITTED IP TO THIS HOSP Condition: Fair Referrals: Jose Carlos Hicks MD [Primary Care Provider] - 1-2 days
[2021-03-17 07:00] LABS: Calcium 8.7 mg/dL (8.4-10.2); Potassium 5.1 mmol/L (3.5-5.1); Total Protein 6.6 g/dL (6.3-8.2)
[2021-03-17 07:04] LABS: Basophils % (A) 0 %; Eosinophils % (A) 0 %; HGB 7.7 gm/dL (13.0-17.5); Hypochromasia Moderate; Lymphocytes # (A) 0.6 k/uL (1.0-4.8); Lymphocytes % (A) 8 %; MCH 28.2 pg (25.0-35.0); MCV 88.1 fL (80.0-100.0); Mean Platelet Volume 8.7; Monocytes # (A) 0.2 k/uL (0-1.0); Monocytes % (A) 3 %; Neutrophils % (A) 88 %; Platelet Count 108 k/uL (150-450); RBC 2.72 m/uL (4.30-5.90); RDW 15.4 % (11.5-15.5); WBC 6.9 k/uL (3.8-10.6)
[2021-03-17] MEDS ORDERED: SODIUM CHLORIDE 0.9% 500 ML 500 ML IV ONE (07:15)
[2021-03-17 08:09] LABS: Appearance,Urine Cloudy (Clear); Bacteria,Urine Rare /hpf; Bilirubin,Urine Negative (Negative); Blood,Urine Small (Negative); Color,Urine Yellow; Glucose,Urine (UA) Negative (Negative); Ketones,Urine Negative (Negative); Leukocyte Esterase,Urine Large (Negative); Mucus,Urine Rare /hpf; Nitrite,Urine Positive (Negative); Protein,Urine Trace (Negative); RBC,Urine 6 /hpf (0-5); Specific Gravity,Urine 1.012 (1.001-1.035); Squamous Epithelial Cell,Urine <1 /hpf (0-4); Urobilinogen,Urine <2.0 mg/dL (<2.0); WBC,Urine >182 /hpf (0-5)
--- NOTE | 2021-03-17 09:05 | CT ---
EXAMINATION TYPE: CT abdomen pelvis wo con DATE OF EXAM: 03/17/2021 COMPARISON: 07/17/2020 INDICATION: Pain, history of bladder cancer DLP: 1122.4 mGycm, Automated exposure control for dose reduction was used. CONTRAST: 0 mL of Isovue 300. Study performed without Oral Contrast TECHNIQUE: Axial images were obtained from above the diaphragm to the pubic rami in the axial plane a t 5 mm thick sections. Reconstructed images are reviewed on the computer in the coronal plane. FINDINGS: Limited CT sections are obtained the lung bases. There is marked cardiomegaly. Large pericardial eff usion is present. Small right pleural fluid is present.. CT ABDOMEN: Small amount of ascites is present. Liver: There may be some elevation of the prominent liver. Discrete masses are not identified on the noncontrast imaging. Spleen: Normal Pancreas: Normal Adrenal glands: The adrenal glands are normal. Gallbladder: Normal Kidneys: Hydronephrosis present bilaterally. There is moderate right and marked left hydroureter. The se extend to the decompressed urinary bladder. Multiple cysts are present on the bilateral kidneys. T here is a hyperdense 2.5 cm area on the lateral right mid kidney No renal stones are evident. Aorta: Vascular calcification is within the aorta. Inferior vena cava: Markedly dilated at the level of the liver. Inferior vena cava is otherwise moder ately prominent. CT PELVIS: Loops of bowel within the abdomen and pelvis are normal. This study is a lateral contrast limitin g bowel evaluation Appendix: Not identified. No suspicious dilated tubular structure or inflammatory change. Urinary bladder: Decompressed with Yang catheter. Underlying wall irregularity cannot be excluded. Genitourinary structures: Prostate appears small, correlate with surgical history Osseous structures: No suspicious lytic or sclerotic lesions. Facet degenerative changes are within t he lumbar spine. Degenerative disc changes are within the lumbar spine. Scoliosis is noted. IMPRESSIONS: 1. Marked cardiomegaly with a large pericardial effusion. This was present previously. 2. Minimal right pleural effusion. 3. New onset bilateral hydronephrosis. 4. Bilateral renal cysts. 5. There is a stable 2.5 cm solid hyperdense lesion on the lateral right kidney. 6. Decompressed urinary bladder. The patient's urinary bladder cancer cannot be well delineated on th is exam
[2021-03-17] MEDS ORDERED: ONDANSETRON 4 MG/2 ML VIAL IVP PRN (09:41)
[2021-03-17] MEDS ORDERED: NALOXONE 0.4 MG/ML 1 ML VIAL IV PRN (09:41)
[2021-03-17] MEDS ORDERED: SODIUM CHLORIDE 0.9% 1,000 ML IV SCH (09:45)
[2021-03-17] MEDS ORDERED: NITROGLYCERIN SL TABS 0.4 MG TAB SUBLINGUAL PRN (13:40)
--- NOTE | 2021-03-17 14:20 | P.CRDCN ---
History of Present Illness Consult date: 03/17/21 History of present illness: HISTORY OF PRESENT ILLNESS: This is a 85-year-old male with a past medical history significant for permanent pacemaker insertion, atrial fibrillation, coronary artery disease with previous stent placement (last in 2007 or 2008 per patient), and bladder cancer. Patient follows in the office with Dr. Anderson. We have been asked to see the patient in consultation for pericardial effusion. Patient examined at the bedside in the emergency room. Patient states he presented to the hospital because he felt like he had flu symptoms. He reports having a procedure done with Dr. Spencer on Monday for his bladder cancer and since then has not been feeling well. He reports suprapubic discomfort. He also reports diarrhea since that time. He denies any chest pain or pressure. He denies shortness of breath at rest. He does report shortness breath with exertion. Patient states he usually is able to ambulate at home without the use of a cane or a walker. Patient does report having some black stools. He denies history of GI bleeding. Patient sent bedside states that the patient takes Pepto-Bismol frequently due to his abdominal discomfort. Patient currently reports feeling weak and tired and states he has no energy. He also reports having no appetite for the past few days. Patient reports having chronic lower extremity edema. Patient states he usually wears knee-high CYNTHIA hose at home. CT abdomen and pelvis completed revealing marked cardiomegaly with large pericardial effusion. This was present previously. Minimal right pleural effusion. New-onset bilateral hydronephrosis. Bilateral renal cysts. Stable 2.5 cm solid hyperdense lesion on the lateral right kidney. Decompressed urinary bladder.. Laboratory data: WBC 6.9. Hemoglobin 7.7. Platelet count 108. Sodium 139. Potassium 5.1. BUN 63. Creatinine 2.50. Lactic acid 1.6. Current home cardiac medications include Lasix 40 mg daily, Aldactone 12.5 mg daily, aspirin 81 mg daily, lisinopril 10 mg daily, carvedilol 12.5 mg twice a d ay, atorvastatin 20 mg at night Most recent echocardiogram obtained in 2018 revealed severe global hypokinesis of LV, ejection fraction 30-35%, severe mitral regurgitation, severe tricuspid regurgitation, and severe pulmonary hypertension. There is also a small generalized peripheral effusion present. Patient underwent Lexiscan stress test in 2017 revealing no evidence of reversible ischemia. Suspect old infarct and dilated cardiomyopathy. REVIEW OF SYSTEMS: At the time of my exam: CONSTITUTIONAL: Denies fever. Reports chills. Reports generalized weakness. Reports feeling tired. Reports loss of energy. HEENT: Denies blurred vision, vision changes, or eye pain. Denies hemoptysis CARDIOVASCULAR: Denies chest pain. Denies orthopnea. Denies PND. Denies palpitations RESPIRATORY: Denies shortness of breath. GASTROINTESTINAL: Denies abdominal pain. Denies nausea or vomiting. HEMATOLOGIC: Denies bleeding disorders. GENITOURINARY: Denies any blood in urine. SKIN: Denies pruitis. Denies rash. PHYSICAL EXAM: VITAL SIGNS: Reviewed. GENERAL: Well-developed in no acute distress. HEENT: Head is normocephalic. Pupils are equal, round. Sclerae anicteric. Mucous membranes of the mouth are moist. Neck supple. No JVD or thyromegaly LUNGS: Respirations even and unlabored. Lungs diminished bilaterally. HEART: Regular rate and rhythm. S1 and S2 heard. ABDOMEN: Soft. Nondistended. Nontender. EXTREMITIES: Normal range of motion. No clubbing or cyanosis. Peripheral pulses intact. Trace bilateral lower extremity edema NEUROLOGIC: Awake and alert. Oriented x 3. 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 Would continue to monitor effusion and resume diuretics when acute kidney injury resolves. Lisinopril placed on hold due to ANI Anemia workup per internal medicine Further recommendations pending patient course Nurse practitioner note has been reviewed by physician. Signing provider agrees with the documented findings, assessment, and plan of care. Past Medical History Past Medical History: Atrial Fibrillation, Coronary Artery Disease (CAD), Cancer, Chest Pain / Angina, Hyperlipidemia, Hypertension, Osteoarthritis (OA), Pneumonia, Renal Disease Additional Past Medical History / Comment(s): SEE DR. ANDERSON'S UPDATED CARDIOVASCULAR HX. 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 History of Any Multi-Drug Resistant Organisms: None Reported Past Surgical History: Appendectomy, Heart Catheterization, Heart Cat heterization With Stent, Joint Replacement, Pacemaker Additional Past Surgical History / Comment(s): 10/03/08 PTCA with stenting of LAD, partial LEFT KNEE REPLACEMENT, BLADDER SCOPE recently. Past Anesthesia/Blood Transfusion Reactions: No Reported Reaction Date of Last Stent Placement:: 10/03/08 Type of Cardiac Device: Permanent Pacemaker Device Placement Date:: 2015 Past Psychological History: No Psychological Hx Reported Smoking Status: Never smoker Past Alcohol Use History: Rare Past Drug Use History: None Reported - Past Family History Father Family Medical History: Coronary Artery Disease (CAD), Myocardial Infarction ([place]) Additional Family Medical History / Comment(s): Father at age of 63 from [place]. Mother Family Medical History: CVA/TIA Additional Family Medical History / Comment(s): Mother at age 65 from CVA. Brother(s) Family Medical History: Pulmonary Embolus Additional Family Medical History / Comment(s): Patient had 1 brother that at age 61 from pulmonary embolism. Sister(s) Family Medical History: No Reported History Additional Family Medical History / Comment(s): Patient had 3 sisters and one from back trouble. Daughter(s) Family Medical History: No Reported History Additional Family Medical History / Comment(s): Patient has one daughter with no major medical problems. Son(s) Family Medical History: No Reported History Additional Family Medical History / Comment(s): Patient has one son with no major medical problems. Medications and Allergies Home Medications Medication Instructions Recorded Confirmed Type Atorvastatin Calcium [Lipitor] 20 mg PO HS 05/04/14 03/17/21 History Lisinopril [Prinivil] 10 mg PO DAILY 12/14/15 03/17/21 History Tamsulosin [Flomax] 0.4 mg PO DAILY 09/25/16 03/17/21 History Aspirin EC [Ecotrin Low Dose] 81 mg PO DAILY 04/16/18 03/17/21 History Nitroglycerin Sl Tabs [Nitrostat] 0.4 mg SUBLINGUAL Q5M PRN 04/16/18 03/17/21 History Acetaminophen [Tylenol Arthritis] 650 mg PO DAILY 05/13/20 03/17/21 History Carvedilol [Coreg] 12.5 mg PO BID #180 tablet 05/18/20 03/17/21 Rx Spironolactone [Aldactone] 12.5 mg PO DAILY #50 tablet 05/18/20 03/17/21 Rx Furosemide [Lasix] 40 mg PO DAILY 03/17/21 03/17/21 History Allergies Allergy/AdvReac Type Severity Reaction Status Date / Time No Known Allergies Allergy Verified 03/17/21 10:34 Physical Exam Vitals: Vital Signs Temp Pulse Resp BP Pulse Ox 03/17/21 12:00 65 16 141/73 97 03/17/21 11:00 67 16 97 03/17/21 10:00 66 16 143/62 97 03/17/21 09:00 60 16 97 03/17/21 08:00 63 16 97 03/17/21 07:44 61 16 141/63 97 03/17/21 06:04 98.7 F 58 L 19 150/60 98 Intake and Output 03/16/21 03/17/21 03/17/21 22:59 06:59 14:59 Other: Weight 114.305 kg Results 03/17/21 06:32 03/17/21 06:32 Cardiac Enzymes 03/17/21 Range/Units 06:32 AST 20 (17-59) U/L CBC 03/17/21 Range/Units 06:32 WBC 6.9 (3.8-10.6) k/uL RBC 2.72 L (4.30-5.90) m/uL Hgb 7.7 L (13.0-17.5) gm/dL Hct 24.0 L (39.0-53.0) % Plt Count 108 L (150-450) k/uL Comprehensive Metabolic Panel 03/17/21 Range/Units 06:32 Sodium 139 (137-145) mmol/L Potassium 5.1 (3.5-5.1) mmol/L Chloride 107 (98-107) mmol/L Carbon Dioxide 20 L (22-30) mmol/L BUN 63 H (9-20) mg/dL Creatinine 2.50 H (0.66-1.25) mg/dL Glucose 122 H (74-99) mg/dL Calcium 8.7 (8.4-10.2) mg/dL AST 20 (17-59) U/L ALT 11 (4-49) U/L Alkaline Phosphatase 68 (38-126) U/L Total Protein 6.6 (6.3-8.2) g/dL Albumin 4.0 (3.5-5.0) g/dL Current Medications Generic Name Dose Route Start Last Admin Trade Name Freq PRN Reason Stop Dose Admin Sodium Chloride 1,000 mls @ 75 mls/hr 03/17/21 09:45 03/17/21 10:44 Saline 0.9% IV 75 mls/hr .[id number] LASHELL Administration Ceftriaxone Sodium 2 gm/ 50 mls @ 100 mls/hr 03/18/21 09:00 Sodium Chloride IVPB Q24HR LASHELL Naloxone HCl 0.2 mg 03/17/21 09:41 Naloxone 0.4 Mg/Ml 1 Ml Vial IV Q2M PRN Opioid Reversal Ondansetron HCl 4 mg 03/17/21 09:41 Ondansetron 4 Mg/2 Ml Vial IVP Q8HR PRN Nausea And Vomiting Intake and Output 03/16/21 03/17/21 03/17/21 22:59 06:59 14:59 Other: Weight 114.305 kg 03/17/21 06:32 03/17/21 06:32
--- NOTE | 2021-03-17 14:23 | P.HPIM ---
History of Present Illness H&P Date: 03/17/21 ( ) Chief Complaint: Weakness HISTORY OF PRESENT ILLNESS This is an 85-year-old male patient of Dr. Hicks and Dr. Holloway with a previous medical history significant for coronary artery disease status post percutaneous coronary intervention and stent placement of the LAD in 2008, pacemaker upgrade to Biventricular pacemaker 04/26/2020, hypertension and hypertensive cardiovascular disease, hyperlipidemia, chronic atrial fibrillation, chronic low back pain. 2018 Echocardiogram revealed EF 30-35% with mild concentric left ventricular hypertrophy, mild aortic valve sclerosis, mild aortic regurgitation, severe mitral regurgitation, severe tricuspid regurgitation, severe pulmonary hypertension. Patient states that he was diagnosed with liver cancer under the care of Dr. Spencer and underwent procedure in his office on Monday, probable intravesical therapy and he has had BCG treatment in the past but this was a new location that he has not received before. On Monday evening, patient developed diarrhea that and 10 unit until Monday and patient started feeling better. His last bowel movement was on Monday and he denies any bloody stool or black. His last bowel movement was on Monday and he denies any other tarriness. Complains of abdominal pain, bloating and gas. He has recently completed course of antibiotic for urinary tract infection. He denies having any fever or chills. He has occasional shortness of breath which is his baseline. Patient is incontinent of urine. Patient also complains of generalized weakness has gotten worse over the weekend. Was brought into [facility] emergency center by his son. He was found to be afebrile, heart rate 58, blood pressure 150/60, pulse ox 98% on room air. WBC 6.9, hemoglobin 7.7, platelet count 108. Sodium 139, potassium 5.1, chloride 107, CO2 20, BUN 63 creatinine 2.5. Blood sugar 122. Liver function tests were normal. Urinalysis was cloudy, nitrate positive, leukoesterase large, RBC 6, wbc's greater than 182. Lactic acid 1.6. Coronavirus PCR not detected. CAT scan of the abdomen and pelvis without contrast revealed marked cardiomegaly with large pericardial effusion. Minimal right pleural effusion. New-onset bilateral hydronephrosis. Bilateral renal cysts. Stable 2.5 cm solid hyperdense lesion in the lateral right kidney. Decompressed urinary bladder. Patient's urinary bladder cancer cannot be well delineated on this exam. Patient has been started on ceftriaxone, to be admitted to the [facility] floor, consult with urology. REVIEW OF SYSTEMS Constitutional: No fever, no chills, no night sweats. No weight change. Reports weakness, Reports fatigue. No daytime sleepiness. EENT: No headache. No blurred vision or double vision, no loss of vision. No nasal drainage or congestion. No epistaxis. No sore throat. Lungs: No shortness of breath, cough, no sputum production. No wheezing. Cardiovascular: No chest pain, chronic lower extremity edema. No palpitations. No paroxysmal nocturnal dyspnea. No orthopnea. No lightheadedness or dizziness. No syncopal episodes. Abdominal: No abdominal pain. No nausea, vomiting. Reports diarrhea. No constipation. No bloody or tarry stools.. No loss of appetite. Genitourinary: No dysuria, increased frequency, urgency. No urinary retention. Reports urinary incontinence. Musculoskeletal: No myalgias. Reports muscle weakness, Reports gait dysfuncti on, no frequent falls. No back pain. No neck pain. Integumentary: No wounds, no lesions. No rash or pruritus. No unusual bruising. No change in hair or nails. Neurologic: No aphasia. No facial droop. No change in mentation. No head injury. No headache. No paralysis. No paresthesia. Psychiatric: No depression. No anxiety. Endocrine: No abnormal blood sugars. SOCIAL HISTORY Patient used to smoke half a pack per day and quit in the 1950s. No illicit drug use, marijuana use, alcohol use. Patient currently lives alone. FAMILY HISTORY Father at age 63 from myocardial infarction. Mother at age 65 from CVA. Patient one brother that of a pulmonary embolism at age 61 after knee surgery. Patient's 3 sisters and one from back trouble. Patient is one daughter and one son with no major medical problems. PHYSICAL EXAMINATION Gen: This is an 85-yesr-old male patient seen in the emergency center and son is at bedside. Son is assisted him out of the bathroom. Patient is somewhat unsteady with minimal ambulation. HEENT: Head is atraumatic, normocephalic. Pupils equal, round. Sclerae is anicteric. NECK: Supple. No JVD. No lymphadenopathy. No thyromegaly. LUNGS: Clear to auscultation. No wheezes or rhonchi. No intercostal retractions. HEART: Stent heart sounds. Irregularly irregular rate and rhythm secondary to atrial fibrillation. 2/6 systolic ejection murmur at the left sternal border. ABDOMEN: Soft. Bowel sounds are present. No masses. No tenderness. EXTREMITIES: Brawny skin changes secondary to chronic venous stasis with 1+ bilateral pedal edema. No calf tenderness. NEUROLOGICAL: Patient is awake, alert and oriented x3. Cranial nerves 2 through 12 are grossly intact. Mild generalized weakness. ASSESSMENT AND PLAN 1. Diarrhea most likely secondary to recent bladder cancer treatment. Diarrhea has resolved, IV fluids will be discontinued due to underlying heart failure. Zofran as needed for nausea and vomiting. 2. Acute urinary tract infection. Patient started on ceftriaxone 2 g IV piggyback daily, await urine culture. 3. Anemia, possible acute on chronic, rule out acute blood loss. Stool for occult blood. 4. Acute kidney injury with chronic kidney disease stage III. Lisinopril, Lasix, Aldactone on hold. Repeat BMP and evaluate for resuming medications. 5. Bicytopenia with low RBC and platelet counts possibly related to bladder cancer. Monitor. 6. Benign prostatic hypertrophy. Continue Flomax 0.4 mg daily. 7. Coronary artery disease status post percutaneous current intervention and stent placement of the LAD back in 2008. Continue aspirin 81 mg once every day, Coreg 12.5 mg twice daily. 8. Hypertension. Hold lisinopril due to acute kidney injury. Patient started on hydralazine 25 mg twice daily, continue Coreg 12.5 mg twice daily. 9. Hyperlipidemia. Continue Lipitor 20 mg orally once every day. 10. Chronic atrial fibrillation status post biventricular pacemaker. 11. Chronic systolic heart failure. Hold Aldactone, Lasix, lisinopril. 12. Bilateral lower extremity edema, chronic. Hold Lasix for now. 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 14. History of prediabetes, low-carb diet. 15. Obesity with possible obstructive sleep apnea. 16. DVT prophylaxis. SCDs and CYNTHIA hose. 17. GI prophylaxis. Protonix 40 mg daily. Patient will be admitted to the hospital for a minimum of 2 night stay. DISCHARGE PLAN TBD. Impression and plan of care have been directed as dictated by the signing physician. Razia Lanier nurse practitioner acting as scribe for signing physician. Past Medical History Past Medical History: Atrial Fibrillation, Coronary Artery Disease (CAD), Cancer, Chest Pain / Angina, Hyperlipidemia, Hypertension, Osteoarthritis (OA), Pneumonia, Renal Disease Additional Past Medical History / Comment(s): SEE DR. HOLLOWAY'S UPDATED CARDIOVASCULAR HX. Other HX: Bladder cancer with cystoscopy, lesions removed, TB virus instilled into his bladder starting December, delacruz's palsy, UTI in April 2014, pneumonia yrs ago, chronic kidney disease stage III, had medicat ion injected in bladder on monday. History of Any Multi-Drug Resistant Organisms: None Reported Past Surgical History: Appendectomy, Heart Catheterization, Heart Catheterization With Stent, Joint Replacement, Pacemaker Additional Past Surgical History / Comment(s): 10/03/08 PTCA with stenting of LAD, partial LEFT KNEE REPLACEMENT, BLADDER SCOPE recently. Past Anesthesia/Blood Transfusion Reactions: No Reported Reaction Date of Last Stent Placement:: 10/03/08 Type of Cardiac Device: Permanent Pacemaker Device Placement Date:: 2015 Past Psychological History: No Psychological Hx Reported Smoking Status: Never smoker Past Alcohol Use History: Rare Past Drug Use History: None Reported - Past Family History Father Family Medical History: Coronary Artery Disease (CAD), Myocardial Infarction ([place]) Additional Family Medical History / Comment(s): Father at age of 63 from [place]. Mother Family Medical History: CVA/TIA Additional Family Medical History / Comment(s): Mother at age 65 from CVA. Brother(s) Family Medical History: Pulmonary Embolus Additional Family Medical History / Comment(s): Patient had 1 brother that at age 61 from pulmonary embolism. Sister(s) Family Medical History: No Reported History Additional Family Medical History / Comment(s): Patient had 3 sisters and one from back trouble. Daughter(s) Family Medical History: No Reported History Additional Family Medical History / Comment(s): Patient has one daughter with no major medical problems. Son(s) Family Medical History: No Reported History Additional Family Medical History / Comment(s): Patient has one son with no major medical problems. Medications and Allergies Home Medications Medication Instructions Recorded Confirmed Type Atorvastatin Calcium [Lipitor] 20 mg PO HS 05/04/14 03/17/21 History Lisinopril [Prinivil] 10 mg PO DAILY 12/14/15 03/17/21 History Tamsulosin [Flomax] 0.4 mg PO DAILY 09/25/16 03/17/21 History Aspirin EC [Ecotrin Low Dose] 81 mg PO DAILY 04/16/18 03/17/21 History Nitroglycerin Sl Tabs [Nitrostat] 0.4 mg SUBLINGUAL Q5M PRN 04/16/18 03/17/21 History Acetaminophen [Tylenol Arthritis] 650 mg PO DAILY 05/13/20 03/17/21 History Carvedilol [Coreg] 12.5 mg PO BID #180 tablet 05/18/20 03/17/21 Rx Spironolactone [Aldactone] 12.5 mg PO DAILY #50 tablet 05/18/20 03/17/21 Rx Furosemide [Lasix] 40 mg PO DAILY 03/17/21 03/17/21 History Allergies Allergy/AdvReac Type Severity Reaction Status Date / Time No Known Allergies Allergy Verified 03/17/21 10:34 Physical Exam Vitals: Vital Signs Temp Pulse Resp BP Pulse Ox 03/17/21 07:44 61 16 141/63 97 03/17/21 06:04 98.7 F 58 L 19 150/60 98 Intake and Output 03/16/21 03/17/21 03/17/21 22:59 06:59 14:59 Other: Weight 114.305 kg Results CBC & Chem 7: 03/17/21 06:32 03/17/21 06:32 Labs: Abnormal Lab Results - Last 24 Hours (Table) 03/17/21 03/17/21 03/17/21 Range/Units 06:32 06:32 06:32 RBC 2.72 L (4.30-5.90) m/uL Hgb 7.7 L (13.0-17.5) gm/dL Hct 24.0 L (39.0-53.0) % Plt Count 108 L (150-450) k/uL Lymphocytes # 0.6 L (1.0-4.8) k/uL Carbon Dioxide 20 L (22-30) mmol/L BUN 63 H (9-20) mg/dL Creatinine 2.50 H (0.66-1.25) mg/dL Glucose 122 H (74-99) mg/dL Total Bilirubin 2.0 H (0.2-1.3) mg/dL Urine Protein Trace H (Negative) Urine Blood Small H (Negative) Ur Leukocyte Esterase Large H (Negative) Urine RBC 6 H (0-5) /hpf Urine WBC >182 H (0-5) /hpf Urine WBC Clumps Many H (None) /hpf Urine Bacteria Rare H (None) /hpf Urine Mucus Rare H (None) /hpf
[2021-03-17] MEDS: hydrALAZINE HCL 25 MG TAB PO SCH ×2 (15:37→21:22)
[2021-03-17 18:35] LABS: HCT 23.4 % (39.0-53.0); HGB 7.2 gm/dL (13.0-17.5); Hypochromasia Marked; MCH 27.9 pg (25.0-35.0); MCHC 30.9 g/dL (31.0-37.0); MCV 90.5 fL (80.0-100.0); Mean Platelet Volume 8.2; Platelet Count 85 k/uL (150-450); RBC 2.59 m/uL (4.30-5.90); RDW 15.3 % (11.5-15.5); WBC 5.2 k/uL (3.8-10.6)
--- NOTE | 2021-03-17 21:15 | P.GSCN ---
History of Present Illness Consult date: 03/17/21 History of present illness: 85 yo male history of bladder cancer dating to 2012 including gd 3 t1 lesions and cis. He has had previous bcg and most recently gemcitabine. The patient deveoped severe aches and malaise after the treatment which was 5 days ago He eventually came to the hospital when he didnt get better. I am seeing his in Dr Spencer' absence. His urine is inflammed. He is anemic. He has new onset bilateral hydronephrosis with an empty bladder. He has had 6ppd urgency incontinence for sometime. The atient is anemic. His cr is 2.5[1.9] His wbc is normal Review of Systems - Gastrointestinal Reports diarrhea, Reports excessive gas - Genitourinary Reports incontinence, Reports urinary frequency - Musculoskeletal Reports low back pain Past Medical History Past Medical History: Atrial Fibrillation, Coronary Artery Disease (CAD), Cancer, Chest Pain / Angina, Hyperlipidemia, Hypertension, Osteoarthritis (OA), Pneumonia, Renal Disease Additional Past Medical History / Comment(s): SEE DR. HOLLOWAY'S UPDATED CARDIOVASCULAR HX. 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 History of Any Multi-Drug Resistant Organisms: None Reported Past Surgical History: Appendectomy, Heart Catheterization, Heart Catheterization With Stent, Joint Replacement, Pacemaker Additional Past Surgical History / Comment(s): 10/03/08 PTCA with stenting of LAD, partial LEFT KNEE REPLACEMENT, BLADDER SCOPE recently. Past Anesthesia/Blood Transfusion Reactions: No Reported Reaction Date of Last Stent Placement:: 10/03/08 Type of Cardiac Device: Permanent Pacemaker Device Placement Date:: 2015 Past Psychological History: No Psychological Hx Reported Smoking Status: Never smoker Past Alcohol Use History: Rare Past Drug Use History: None Reported - Past Family History Father Family Medical History: Coronary Artery Disease (CAD), Myocardial Infarction ([place]) Additional Family Medical History / Comment(s): Father at age of 63 from [place]. Mother Family Medical History: CVA/TIA Additional Family Medical History / Comment(s): Mother at age 65 from CVA. Brother(s) Family Medical History: Pulmonary Embolus Additional Family Medical History / Comment(s): Patient had 1 brother that at age 61 from pulmonary embolism. Sister(s) Family Medical History: No Reported History Additional Family Medical History / Comment(s): Patient had 3 sisters and one from back trouble. Daughter(s) Family Medical History: No Reported History Additional Family Medical History / Comment(s): Patient has one daughter with no major medical problems. Son(s) Family Medical History: No Reported History Additional Family Medical History / Comment(s): Patient has one son with no major medical problems. Medications and Allergies Home Medications Medication Instructions Recorded Confirmed Type Atorvastatin Calcium [Lipitor] 20 mg PO HS 05/04/14 03/17/21 History Lisinopril [Prinivil] 10 mg PO DAILY 12/14/15 03/17/21 History Tamsulosin [Flomax] 0.4 mg PO DAILY 09/25/16 03/17/21 History Aspirin EC [Ecotrin Low Dose] 81 mg PO DAILY 04/16/18 03/17/21 History Nitroglycerin Sl Tabs [Nitrostat] 0.4 mg SUBLINGUAL Q5M PRN 04/16/18 03/17/21 History Acetaminophen [Tylenol Arthritis] 650 mg PO DAILY 05/13/20 03/17/21 History Carvedilol [Coreg] 12.5 mg PO BID #180 tablet 05/18/20 03/17/21 Rx Spironolactone [Aldactone] 12.5 mg PO DAILY #50 tablet 05/18/20 03/17/21 Rx Furosemide [Lasix] 40 mg PO DAILY 03/17/21 03/17/21 History Allergies Allergy/AdvReac Type Severity Reaction Status Date / Time No Known Allergies Allergy Verified 03/17/21 10:34 Surgical - Exam Vital Signs Temp Pulse Resp BP Pulse Ox 98.7 F 58 L 19 150/60 98 03/17/21 06:04 03/17/21 06:04 03/17/21 06:04 03/17/21 06:04 03/17/21 06:04 - General well developed, moderate distress - Eyes PERRL - ENT no hearing loss - Neck trachea midline - Respiratory normal expansion, normal respiratory effort - Cardiovascular Rhythm: regular - Abdomen Abdomen: soft, non tender - Genitourinary normal penis with no external lesions, testicles present - Musculoskeletal normal posture - Psychiatric oriented to time, oriented to person, oriented to place, speech is normal, memory intact Results - Labs 03/17/21 18:03 03/17/21 06:32 Abnormal Lab Results - Last 24 Hours (Table) 03/17/21 03/17/21 03/17/21 Range/Units 06:32 06:32 06:32 RBC 2.72 L (4.30-5.90) m/uL Hgb 7.7 L (13.0-17.5) gm/dL Hct 24.0 L (39.0-53.0) % MCHC (31.0-37.0) g/dL Plt Count 108 L (150-450) k/uL Lymphocytes # 0.6 L (1.0-4.8) k/uL Carbon Dioxide 20 L (22-30) mmol/L BUN 63 H (9-20) mg/dL Creatinine 2.50 H (0.66-1.25) mg/dL Glucose 122 H (74-99) mg/dL Total Bilirubin 2.0 H (0.2-1.3) mg/dL Urine Protein Trace H (Negative) Urine Blood Small H (Negative) Ur Leukocyte Esterase Large H (Negative) Urine RBC 6 H (0-5) /hpf Urine WBC >182 H (0-5) /hpf Urine WBC Clumps Many H (None) /hpf Urine Bacteria Rare H (None) /hpf Urine Mucus Rare H (None) /hpf 03/17/21 Range/Units 18:03 RBC 2.59 L (4.30-5.90) m/uL Hgb 7.2 L (13.0-17.5) gm/dL Hct 23.4 L (39.0-53.0) % MCHC 30.9 L (31.0-37.0) g/dL Plt Count 85 L (150-450) k/uL Lymphocytes # (1.0-4.8) k/uL Carbon Dioxide (22-30) mmol/L BUN (9-20) mg/dL Creatinine (0.66-1.25) mg/dL Glucose (74-99) mg/dL Total Bilirubin (0.2-1.3) mg/dL Urine Protein (Negative) Urine Blood (Negative) Ur Leukocyte Esterase (Negative) Urine RBC (0-5) /hpf Urine WBC (0-5) /hpf Urine WBC Clumps (None) /hpf Urine Bacteria (None) /hpf Urine Mucus (None) /hpf Microbiology - Last 24 Hours (Table) 03/17/21 06:32 Urine Culture - Preliminary Urine,Voided Diabetes panel 03/17/21 Range/Units 06:32 Sodium 139 (137-145) mmol/L Potassium 5.1 (3.5-5.1) mmol/L Chloride 107 (98-107) mmol/L Carbon Dioxide 20 L (22-30) mmol/L BUN 63 H (9-20) mg/dL Creatinine 2.50 H (0.66-1.25) mg/dL Glucose 122 H (74-99) mg/dL Calcium 8.7 (8.4-10.2) mg/dL AST 20 (17-59) U/L ALT 11 (4-49) U/L Alkaline Phosphatase 68 (38-126) U/L Total Protein 6.6 (6.3-8.2) g/dL Albumin 4.0 (3.5-5.0) g/dL Calcium panel 03/17/21 Range/Units 06:32 Calcium 8.7 (8.4-10.2) mg/dL Albumin 4.0 (3.5-5.0) g/dL Pituitary panel 03/17/21 Range/Units 06:32 Sodium 139 (137-145) mmol/L Potassium 5.1 (3.5-5.1) mmol/L Chloride 107 (98-107) mmol/L Carbon Dioxide 20 L (22-30) mmol/L BUN 63 H (9-20) mg/dL Creatinine 2.50 H (0.66-1.25) mg/dL Glucose 122 H (74-99) mg/dL Calcium 8.7 (8.4-10.2) mg/dL Adrenal panel 03/17/21 Range/Units 06:32 Sodium 139 (137-145) mmol/L Potassium 5.1 (3.5-5.1) mmol/L Chloride 107 (98-107) mmol/L Carbon Dioxide 20 L (22-30) mmol/L BUN 63 H (9-20) mg/dL Creatinine 2.50 H (0.66-1.25) mg/dL Glucose 122 H (74-99) mg/dL Calcium 8.7 (8.4-10.2) mg/dL Total Bilirubin 2.0 H (0.2-1.3) mg/dL AST 20 (17-59) U/L ALT 11 (4-49) U/L Alkaline Phosphatase 68 (38-126) U/L Total Protein 6.6 (6.3-8.2) g/dL Albumin 4.0 (3.5-5.0) g/dL - Imaging CT scan - abdomen: report reviewed, image reviewed CT scan - pelvis: report reviewed, image reviewed Assessment and Plan Assessment: Impression: generalized malaise. anemia bladder cancer bilateral hydronephrosis. chronic incontinence Plan; Urine cultures are pending the patient is being hydrated. Antibiotics are given. I cannot explain the anemia. the systemic symptoms could be related to the gemcitabine but less likely since it was given intravesically. the hydronephrosis is new and I dont have an immediate explanation. Im concerned for cis of the bladder. I will follow with you. Since Dr Spencer knows him closely I may not intervene until he reurns unless it is obviously necessary. Time with Patient: Greater than 30
[2021-03-17] MEDS: carvediloL 12.5 MG TAB PO SCH (21:22)
[2021-03-17] MEDS: ATORVASTATIN 20 MG TAB PO SCH (21:22)
[2021-03-18 07:21] LABS: HCT 22.8 % (39.0-53.0); HGB 7.2 gm/dL (13.0-17.5); Hypochromasia Moderate; MCH 28.4 pg (25.0-35.0); MCHC 31.6 g/dL (31.0-37.0); MCV 89.9 fL (80.0-100.0); Mean Platelet Volume 9.9; RBC 2.54 m/uL (4.30-5.90); RDW 15.4 % (11.5-15.5); WBC 3.8 k/uL (3.8-10.6)
[2021-03-18 07:24] LABS: Platelet Count 74 k/uL (150-450)
[2021-03-18] MEDS: ASPIRIN 81 MG PO SCH (09:43)
[2021-03-18] MEDS: PANTOPRAZOLE 40 MG TABLET PO SCH (09:44)
[2021-03-18] MEDS: ACETAMINOPHEN TAB 325 MG TAB PO SCH (09:44)
[2021-03-18] MEDS: carvediloL 12.5 MG TAB PO SCH ×2 (09:45→20:11)
[2021-03-18] MEDS: hydrALAZINE HCL 25 MG TAB PO SCH ×2 (09:45→20:11)
[2021-03-18] MEDS: TAMSULOSIN 0.4 MG CAP.ER.24H PO SCH (09:45)
--- NOTE | 2021-03-18 09:47 | P.NPCON ---
History of Present Illness - Reason for Consult acute renal failure, chronic renal failure - History of Present Illness Reason for consultation: Acute kidney injury on chronic kidney disease History of present illness: A signed patient is a 85-year-old male seen in consultation for acute kidney injury on chronic kidney disease. Patient has chronic kidney disease stage IIIB/4 with baseline creatinine in the range of 1.62. Creatinine on admission was 2.5. Patient presented to the hospital with generalized weakness and not feeling well. Patient states he saw his urologist outpatient and was given a medication for his bladder cancer. He subsequently developed diarrhea over the weekend which has now subsided. He denies any vomiting. Oral intake has been fair. He does have history of systolic CHF with ejection fraction of 30-35% with severe mitral and tricuspid regurgitation. He is also noted to have severe pulmonary hypertension. He also has chronic pericardial effusion. Cardiology is following. CAT scan of the abdomen and pelvis revealed bilateral hydronephrosis. Urology has been consulted. He denies use of nonsteroidals. No history of diabetes. No fever or chills. He did receive 2 L bolus of normal saline on admission. Vital signs are stable. General: The patient appeared well nourished and normally developed. HEENT: Head exam is unremarkable. Neck is without jugular venous distension. LUNGS: Breath sounds decreased. HEART: Rate and Rhythm are regular. ABDOMEN: Soft, no distention. EXTREMITITES: 2+ edema. Past Medical History Past Medical History: Atrial Fibrillation, Coronary Artery Disease (CAD), Cancer, Chest Pain / Angina, Hyperlipidemia, Hypertension, Osteoarthritis (OA), Pneumonia, Renal Disease Additional Past Medical History / Comment(s): SEE DR. HOLLOWAY'S UPDATED CARDIOVASCULAR HX. 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 History of Any Multi-Drug Resistant Organisms: None Reported Past Surgical History: Appendectomy, Heart Catheterization, Heart Catheterization With Stent, Joint Replacement, Pacemaker Additional Past Surgical History / Comment(s): 10/03/08 PTCA with stenting of LAD, partial LEFT KNEE REPLACEMENT, BLADDER SCOPE recently. Past Anesthesia/Blood Transfusion Reactions: No Reported Reaction Date of Last Stent Placement:: 10/03/08 Type of Cardiac Device: Permanent Pacemaker Device Placement Date:: 2015 Past Psychological History: No Psychological Hx Reported Smoking Status: Never smoker Past Alcohol Use History: Rare Past Drug Use History: None Reported - Past Family History Father Family Medical History: Coronary Artery Disease (CAD), Myocardial Infarction (DE) Additional Family Medical History / Comment(s): Father at age of 63 from [place]. Mother Family Medical History: CVA/TIA Additional Family Medical History / Comment(s): Mother at age 65 from CVA. Brother(s) Family Medical History: Pulmonary Embolus Additional Family Medical History / Comment(s): Patient had 1 brother that at age 61 from pulmonary embolism. Sister(s) Family Medical History: No Reported History Additional Family Medical History / Comment(s): Patient had 3 sisters and one from back trouble. Daughter(s) Family Medical History: No Reported History Additional Family Medical History / Comment(s): Patient has one daughter with no major medical problems. Son(s) Family Medical History: No Reported History Additional Family Medical History / Comment(s): Patient has one son with no major medical problems. Medications and Allergies Home Medications Medication Instructions Recorded Confirmed Type Atorvastatin Calcium [Lipitor] 20 mg PO HS 05/04/14 03/17/21 History Lisinopril [Prinivil] 10 mg PO DAILY 12/14/15 03/17/21 History Tamsulosin [Flomax] 0.4 mg PO DAILY 09/25/16 03/17/21 History Aspirin EC [Ecotrin Low Dose] 81 mg PO DAILY 04/16/18 03/17/21 History Nitroglycerin Sl Tabs [Nitrostat] 0.4 mg SUBLINGUAL Q5M PRN 04/16/18 03/17/21 History Acetaminophen [Tylenol Arthritis] 650 mg PO DAILY 05/13/20 03/17/21 History Carvedilol [Coreg] 12.5 mg PO BID #180 tablet 05/18/20 03/17/21 Rx Spironolactone [Aldactone] 12.5 mg PO DAILY #50 tablet 05/18/20 03/17/21 Rx Furosemide [Lasix] 40 mg PO DAILY 03/17/21 03/17/21 History Allergies Allergy/AdvReac Type Severity Reaction Status Date / Time No Known Allergies Allergy Verified 03/17/21 10:34 Physical Exam Vitals: Vital Signs Temp Pulse Pulse Resp BP BP Pulse Ox 03/18/21 05:02 98.7 F 66 18 120/67 96 03/17/21 20:50 99.5 F 55 L 16 135/55 97 03/17/21 16:15 98.7 F 03/17/21 16:13 67 16 152/61 95 03/17/21 12:00 65 16 141/73 97 03/17/21 11:00 67 16 97 03/17/21 10:00 66 16 143/62 97 Intake and Output 03/17/21 03/18/21 03/18/21 22:59 06:59 14:59 Intake Total 0 Balance 0 Intake: Intake, IV Titration 0 Amount Sodium Chloride 0.9% 1, 0 000 ml @ 75 mls/hr IV . [id number] [facility] Rx#:[id number] Other: Voiding Method Toilet Diaper Results - Lab Results Most recent lab results Calcium 8.7 mg/dL (8.4-10.2) 03/17/21 06:32 03/18/21 07:06 03/17/21 06:32 Assessment and Plan Plan: Assessment: 1. Acute kidney injury secondary to ATN secondary to cardiorenal syndrome. Also component of obstructive uropathy. Creatinine 2.5 on admission. 2. Chronic kidney disease stage IIIB/4 with baseline creatinine in the range of 1.62 secondary to nephrosclerosis. 3. Chronic pericardial effusion. 4. Acute on chronic systolic CHF ejection fraction of 30-35% with severe mitral and tricuspid regurgitation. 5. Pulmonary hypertension. 6. Bilateral hydronephrosis. Urology consulted. 7. Metabolic acidosis secondary to acute kidney injury. 8. Volume overload. 9. Anemia of chronic disease. Plan: Add IV Lasix 40 mg twice daily. Add oral sodium bicarbonate. Check iron studies. Await urology recommendations. Add Aranesp. Add oral sodium bicarbonate. Avoid nephrotoxins. Continue to monitor renal function and urine output. Follow-up echocardiogram. Thank you for the consultation. I will continue to follow patient with you during his hospital stay.
--- NOTE | 2021-03-18 10:22 | ECHOF ---
Referral Reason:LVF MEASUREMENTS -------- HEIGHT: 182.9 cm WEIGHT: 114.3 kg BP: RVIDd: 4.7 cm (< 3.3) IVSd: 1.2 cm (0.6 - 1.1) LVIDd: 5.8 cm (3.9 - 5.3) LVPWd: 1.5 cm (0.6 - 1.1) IVSs: 1.7 cm LVIDs: 3.5 cm LVPWs: 2.0 cm LA Diam: 7.1 cm (2.7 - 3.8) LAESV Index (A-L): 149.53 ml/m Ao Diam: 3.4 cm (2.0 - 3.7) LA Diam: 7.4 cm (2.7 - 3.8) MV EXCURSION: 34.360 mm (> 18.000) MV EF SLOPE: 138 mm/s (70 - 150) EPSS: 0.5 cm MV E Micah: 1.16 m/s MV DecT: 179 ms MV A Micah: 0.44 m/s MV E/A Ratio: 2.66 AR PHT: 487 ms RAP: 20.00 mmHg RVSP: 74.61 mmHg FINDINGS -------- Pacerwire seen in RV and RA. This was a technically good study. The left ventricular size is normal. Overall left ventricular systolic function is mild-moderately impaired with, an EF between 40 - 45 %. The right ventricle is normal in size. LA is severely dilated >40 ml/m2 The right atrial size is normal. There is mild aortic valve sclerosis. There is mild aortic regurgitation. Iadborvw-hs-tyyuhc mitral regurgitation is present. Severe tricuspid regurgitation present. There is moderate to severe pulmonary hypertension. The r ight ventricular systolic pressure, as measured by Doppler, is 74.61mmHg. Trace/mild (physiologic) pulmonic regurgitation. The aortic root size is normal. There is a moderate, generalized pericardial effusion present. CONCLUSIONS -------- 1. The left ventricular size is normal. 2. Overall left ventricular systolic function is mild-moderately impaired with, an EF between 40 - 45 %. 3. The right ventricle is normal in size. 4. LA is severely dilated >40 ml/m2 5. The right atrial size is normal. 6. There is mild aortic valve sclerosis. 7. There is mild aortic regurgitation. 8. Ihpxvaup-bc-duvyzb mitral regurgitation is present. 9. Severe tricuspid regurgitation present. 10. There is moderate to severe pulmonary hypertension. 11. The right ventricular systolic pressure, as measured by Doppler, is 74.61mmHg. 12. Trace/mild (physiologic) pulmonic regurgitation. 13. The aortic root size is normal. 14. There is a moderate, generalized pericardial effusion present. [employer]ER: Carri Gaffney RDCS
[2021-03-18] MEDS: FUROSEMIDE 10 MG/ML 4 ML VIAL IV SCH ×2 (10:38→20:11)
[2021-03-18] MEDS: SODIUM BICARBONATE TAB 650 MG TAB PO SCH ×2 (10:40→20:11)
[2021-03-18 10:51] LABS: Monocytes # (M) 0.27 k/uL (0-1.0); Neutrophils # (M) 3.23 k/uL (1.3-7.7); Neutrophils % (M) 85 %; Nucleated Red Blood Cells 0 /100 WBC (0-0); Total Cells Counted 100
[2021-03-18 10:52] LABS: Anisocytosis (M) Present; Poikilocytosis (M) Present; RBC Fragments Present
[2021-03-18 10:53] LABS: Polychromasia Present
[2021-03-18 11:27] LABS: African American GFR (CKD) 27.3 (60.0-200.0); Albumin 3.4 g/dL (3.80-4.90); Albumin/Globulin Ratio 1.55 (1.60-3.17); Anion Gap 10.8 mmol/L (4.00-12.00); BUN/Creat Ratio 28.75 Ratio (12.00-20.00); Carbon Dioxide 19.2 mmol/L (21.6-31.8); Globulin 2.2 g/dL (1.6-3.3); Non-African American GFR(CKD) 23.5 (60.0-200.0); Potassium 4.6 mmol/L (3.5-5.5); Total Bilirubin 1.5 mg/dL (0.2-1.2); Total Protein 5.6 g/dL (6.2-8.2)
[2021-03-18] MEDS ORDERED: DARBEPOETIN ALFA 40 MCG/0.4 ML SYRINGE SQ SCH (12:00)
--- NOTE | 2021-03-18 12:14 | P.PN ---
Subjective Progress Note Date: 03/18/21 HISTORY OF PRESENT ILLNESS This is an 85-year-old male patient of Dr. Hicks and Dr. Anderson with a previous medical history significant for coronary artery disease status post percutaneous coronary intervention and stent placement of the LAD in 2008, pacemaker upgrade to Biventricular pacemaker 04/26/2020, hypertension and hypertensive cardiovascular disease, hyperlipidemia, chronic atrial fibrillation, chronic low back pain. 2018 Echocardiogram revealed EF 30-35% with mild concentric left ventricular hypertrophy, mild aortic valve sclerosis, mild aortic regurgitation, severe mitral regurgitation, severe tricuspid regurgitation, severe pulmonary hypertension. Patient states that he was diagnosed with liver cancer under the care of Dr. Spencer and underwent procedure in his office on Monday, probable intravesical therapy and he has had BCG treatment in the past but this was a new location that he has not received before. On Monday evening, patient developed diarrhea that and 10 unit until Monday and patient started feeling better. His last bowel movement was on Monday and he denies any bloody stool or black. His last bowel movement was on Monday and he denies any other tarriness. Complains of abdominal pain, bloating and gas. He has recently completed course of antibiotic for urinary tract infection. He denies having any fever or chills. He has occasional shortness of breath which is his baseline. Patient is incontinent of urine. Patient also complains of generalized weakness has gotten worse over the weekend. Was brought into [facility] emergency center by his son. He was found to be afebrile, heart rate 58, blood pressure 150/60, pulse ox 98% on room air. WBC 6.9, hemoglobin 7.7, platelet count 108. Sodium 139, potassium 5.1, chloride 107, CO2 20, BUN 63 creatinine 2.5. Blood sugar 122. Liver function tests were normal. Urinalysis was cloudy, nitrate positive, leukoesterase large, RBC 6, wbc's greater than 182. Lactic acid 1.6. Coronavirus PCR not detected. CAT scan of the abdomen and pelvis without contrast revealed marked cardiomegaly with large pericardial effusion. Minimal right pleural effusion. New-onset bilateral hydronephrosis. Bilateral renal cysts. Stable 2.5 cm solid hyperdense lesion in the lateral right kidney. Decompressed urinary bladder. Patient's urinary bladder cancer cannot be well delineated on this exam. Patient has been started on ceftriaxone, to be admitted to the [facility] floor, consult with urology. 03/18: Echocardiogram reveals EF of 40-45%, LA severely dilated greater than 40 mL per M2, mild aortic regurgitation, moderate to severe mitral regurgitation, severe tricuspid regurgitation, moderate to severe pulmonary hypertension. Patient has been seen by urology and systemic symptoms could be related to Gemcitabine but less likely since it was given intravesically. Hydronephrosis is new and will follow along. Anemia workup has been started and consult added for nephrology and Lasix IV 40 mg twice daily has been added as well as sodium bicarb oral, Aranesp. REVIEW OF SYSTEMS Constitutional: No fever, no chills, no night sweats. No weight change. Reports weakness, Reports fatigue. No daytime sleepiness. EENT: No headache. No blurred vision or double vision, no loss of vision. No nasal drainage or congestion. No epistaxis. No sore throat. Lungs: No shortness of breath, cough, no sputum production. No wheezing. Cardiovascular: No chest pain, chronic lower extremity edema. No palpitations. No paroxysmal nocturnal dyspnea. No orthopnea. No lightheadedness or dizziness. No syncopal episodes. Abdominal: No abdominal pain. No nausea, vomiting. Reports diarrhea. No constipation. No bloody or tarry stools.. No loss of appetite. Genitourinary: No dysuria, increased frequency, urgency. No urinary retention. Reports urinary incontinence. Musculoskeletal: No myalgias. Reports muscle weakness, Reports gait dysfunction, no frequent falls. No back pain. No neck pain. Integumentary: No wounds, no lesions. No rash or pruritus. No unusual bruising. No change in hair or nails. Neurologic: No aphasia. No facial droop. No change in mentation. No head injury. No headache. No paralysis. No paresthesia. Psychiatric: No depression. No anxiety. Endocrine: No abnormal blood sugars. PHYSICAL EXAMINATION Gen: This is an 85-yesr-old male patient seen in the emergency center and son is at bedside. Son is assisted him out of the bathroom. Patient is somewhat unsteady with minimal ambulation. HEENT: Head is atraumatic, normocephalic. Pupils equal, round. Sclerae is anicteric. NECK: Supple. No JVD. No lymphadenopathy. No thyromegaly. LUNGS: Clear to auscultation. No wheezes or rhonchi. No intercostal retractions. HEART: Stent heart sounds. Irregularly irregular rate and rhythm secondary to atrial fibrillation. 2/6 systolic ejection murmur at the left sternal border. ABDOMEN: Soft. Bowel sounds are present. No masses. No tenderness. EXTREMITIES: Brawny skin changes secondary to chronic venous stasis with 1+ bilateral pedal edema. No calf tenderness. NEUROLOGICAL: Patient is awake, alert and oriented x3. Cranial nerves 2 through 12 are grossly intact. Mild generalized weakness. ASSESSMENT AND PLAN 1. Diarrhea possibly secondary to recent bladder cancer treatment. Diarrhea has resolved, IV fluids will be discontinued due to underlying heart failure. Zofran as needed for nausea and vomiting. 2. Acute urinary tract infection. Patient started on ceftriaxone 2 g IV piggyback daily, await urine culture. 3. Anemia, possible acute on chronic, rule out acute blood loss. Stool for occult blood has not been sent. Patient started on Aranesp. Iron studies. One dose of Ferrlecit ordered. 4. Acute kidney injury secondary to ATN secondary to cardiorenal syndrome and component of obstructive uropathy with chronic kidney disease stage IIIb/4. Lisinopril, Lasix, Aldactone on hold. Consult with nephrology appreciated. P atient started on Lasix 40 mg IV twice daily, sodium bicarb oral, Aranesp. 5. Bicytopenia with low RBC and platelet counts possibly related to bladder cancer. Monitor. 6. Benign prostatic hypertrophy. Continue Flomax 0.4 mg daily. 7. New onset bilateral hydronephrosis. Urology on consult. 8. Coronary artery disease status post percutaneous current intervention and stent placement of the LAD back in 2008. Continue aspirin 81 mg once every day, Coreg 12.5 mg twice daily. 9. Hypertension. Hold lisinopril due to acute kidney injury. Patient started on hydralazine 25 mg twice daily, continue Coreg 12.5 mg twice daily. 10. Hyperlipidemia. Continue Lipitor 20 mg orally once every day. 11. Chronic atrial fibrillation status post biventricular pacemaker. 12. Chronic systolic heart failure. Hold Aldactone, Lasix, lisinopril. 13. Bilateral lower extremity edema, chronic. Hold Lasix for now. 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 15. History of prediabetes, low-carb diet. 16. Obesity with possible obstructive sleep apnea. 17. DVT prophylaxis. SCDs and CYNTHIA hose. 18. GI prophylaxis. Protonix 40 mg daily. DISCHARGE PLAN Home. Impression and plan of care have been directed as dictated by the signing physician. Razia Lanier nurse practitioner acting as scribe for signing physician. Objective - Vital Signs Vital signs: Vital Signs Temp 98.7 F 03/18/21 05:02 Pulse 66 03/18/21 05:02 Resp 18 03/18/21 05:02 BP 120/67 03/18/21 05:02 Pulse Ox 96 03/18/21 05:02 Intake & Output 03/17/21 03/18/21 03/18/21 18:59 06:59 18:59 Intake Total 0 Balance 0 Weight 114.305 kg Intake: Intake, IV Titration 0 Amount Sodium Chloride 0.9% 1, 0 000 ml @ 75 mls/hr IV . [id number] [facility] Rx#:[id number] Other: Voiding Method Toilet Diaper - Labs CBC & Chem 7: 03/18/21 07:06 03/18/21 07:06 Labs: Abnormal Lab Results - Last 24 Hours (Table) 03/17/21 03/18/21 Range/Units 18:03 07:06 RBC 2.59 L 2.54 L (4.30-5.90) m/uL Hgb 7.2 L 7.2 L (13.0-17.5) gm/dL Hct 23.4 L 22.8 L (39.0-53.0) % MCHC 30.9 L (31.0-37.0) g/dL Plt Count 85 L 74 L (150-450) k/uL Microbiology - Last 24 Hours (Table) 03/17/21 06:32 Urine Culture - Preliminary Urine,Voided
--- NOTE | 2021-03-18 12:26 | P.PN ---
Subjective Progress Note Date: 03/18/21 The patient came in the hospital yesterday with general overall malaise, failure to thrive, weakness pain. He also has chronic diarrhea and chronic urinary incontinence. The patient has bladder cancer since 2012 and has been on intravesical treatments. He most recently was placed on gemcitabine. After his first treatment mention symptoms rapidly progressed to. Whether it was a gemcitabine or coincidental is indeterminate. Upon admission he is found to be anemic with hemoglobin 7.2. An elevated creatinine at 2.5 baseline 1.6-1.9. He had a computed tomography scan identifying bilateral hydronephrosis of a mild degree. His most recent biopsies done by only showed a small amount of cancer. My concerns are the cause of the anemia. Whether the gemcitabine cause the symptoms that brought him in the hospital. Usually these would be only local symptoms rather than systemic symptoms since it is only an intravesical instillation. Also question whether he may have some carcinoma in situ despite biopsies being negative. It is also possible he had significant amount of inflammation of the bladder leading to temporary edema of the ureteral orifices and therefore bilateral hydronephrosis. At this point in time since he feels much better today I would continue his antibiotics and await urine culture. We'll not intervene with stents as a creatinine changes not significant nor is a hydronephrosis. I will discuss this with when he returns. Says been discussed with the patient and his sister. Objective - Vital Signs Vital signs: Vital Signs Temp 99 F 03/18/21 11:41 Pulse 72 03/18/21 11:41 Resp 18 03/18/21 11:41 BP 96/51 03/18/21 11:41 Pulse Ox 96 03/18/21 11:41 Intake & Output 03/17/21 03/18/21 03/18/21 18:59 06:59 18:59 Intake Total 0 Balance 0 Weight 114.305 kg Intake: Intake, IV Titration 0 Amount Sodium Chloride 0.9% 1, 0 000 ml @ 75 mls/hr IV . [id number] [facility] Rx#:[id number] Other: Voiding Method Toilet Diaper # Voids 1 # Bowel Movements 1 - Labs CBC & Chem 7: 03/18/21 07:06 03/18/21 07:06 Labs: Abnormal Lab Results - Last 24 Hours (Table) 03/17/21 03/18/21 03/18/21 Range/Units 18:03 07:06 07:06 RBC 2.59 L 2.54 L (4.30-5.90) m/uL Hgb 7.2 L 7.2 L (13.0-17.5) gm/dL Hct 23.4 L 22.8 L (39.0-53.0) % MCHC 30.9 L (31.0-37.0) g/dL Plt Count 85 L 74 L (150-450) k/uL Lymphocytes # (Manual) 0.30 L (1.0-4.8) k/uL Carbon Dioxide 19.2 L (21.6-31.8) mmol/L BUN 69.0 H (9.0-27.0) mg/dL Creatinine 2.4 H (0.6-1.5) mg/dL Est GFR (CKD-EPI)AfAm 27.3 L (60.0-200.0) Est GFR (CKD-EPI)NonAf 23.5 L (60.0-200.0) BUN/Creatinine Ratio 28.75 H (12.00-20.00) Ratio Glucose 120 H (70-110) mg/dL Calcium 8.0 L (8.7-10.3) mg/dL Total Bilirubin 1.5 H (0.2-1.2) mg/dL Total Protein 5.6 L (6.2-8.2) g/dL Albumin 3.40 L (3.80-4.90) g/dL Albumin/Globulin Ratio 1.55 L (1.60-3.17) g/dL Microbiology - Last 24 Hours (Table) 03/17/21 06:32 Urine Culture - Preliminary Urine,Voided
[2021-03-18] MEDS ORDERED: SODIUM FERRIC GLUCONAT-SUCROSE 125 MG in SODIUM CHLORIDE 0.9% 100 ML IVPB ONE (12:30)
[2021-03-18 15:53] VITALS: BMI 33.2
[2021-03-18 18:45] LABS: Ferritin 60.5 ng/mL (22.0-322.0)
[2021-03-18 18:49] LABS: % Iron Saturation 3.96 (15.00-50.00)
[2021-03-18] MEDS: ATORVASTATIN 20 MG TAB PO SCH (20:11)
--- NOTE | 2021-03-19 08:07 | P.PN ---
Subjective Progress Note Date: 03/19/21 The patient is in the hospital multiple medical and urologic problems. He he has a history of recurrent noninvasive bladder cancer. He underwent intravesical instillation of gemcitabine last week. He developed fever and chills. He is growing a gram-negative bacilli. It is very probable mild that the chills and fever due to a urinary tract infection with sepsis. He has some mild Livingston which could be due to the inflammation of the bladder. I do not have an explanation for the anemia. I do not think intervention for the mild Living[place] is necessary. and the patient will have to discuss further intravesical treatment for the bladder cancer in the future. Nothing further urologically needs to be done during this admission. Objective - Vital Signs Vital signs: Vital Signs Temp 98.9 F 03/19/21 05:00 Pulse 60 03/19/21 05:00 Resp 16 03/19/21 05:00 BP 105/49 03/19/21 05:00 Pulse Ox 95 03/19/21 05:00 Intake & Output 03/18/21 03/19/21 03/19/21 18:59 06:59 18:59 Intake Total 830 Balance 830 Weight 114.305 kg Intake: Oral 830 Other: Voiding Method Toilet Toilet Diaper Diaper # Voids 1 6 # Bowel Movements 1 1 - Labs CBC & Chem 7: 03/18/21 07:06 03/18/21 07:06 Labs: Abnormal Lab Results - Last 24 Hours (Table) 03/18/21 03/18/21 03/18/21 Range/Units 07:06 07:06 07:06 Lymphocytes # (Manual) 0.30 L (1.0-4.8) k/uL Carbon Dioxide 19.2 L (21.6-31.8) mmol/L BUN 69.0 H (9.0-27.0) mg/dL Creatinine 2.4 H (0.6-1.5) mg/dL Est GFR (CKD-EPI)AfAm 27.3 L (60.0-200.0) Est GFR (CKD-EPI)NonAf 23.5 L (60.0-200.0) BUN/Creatinine Ratio 28.75 H (12.00-20.00) Ratio Glucose 120 H (70-110) mg/dL Calcium 8.0 L (8.7-10.3) mg/dL Iron 13 L (65-175) ug/dL % Saturation 3.96 L (15.00-50.00) Total Bilirubin 1.5 H (0.2-1.2) mg/dL Total Protein 5.6 L (6.2-8.2) g/dL Albumin 3.40 L (3.80-4.90) g/dL Albumin/Globulin Ratio 1.55 L (1.60-3.17) g/dL Microbiology - Last 24 Hours (Table) 03/17/21 06:32 Urine Culture - Preliminary Urine,Voided Gram Neg Bacilli 03/17/21 10:08 Blood Culture - Preliminary Blood No Growth after 24 hours 03/17/21 09:53 Blood Culture - Preliminary Blood No Growth after 24 hours
[2021-03-19] MEDS: SODIUM BICARBONATE TAB 650 MG TAB PO SCH ×2 (08:12→19:56)
[2021-03-19] MEDS: carvediloL 12.5 MG TAB PO SCH ×2 (08:12→19:56)
[2021-03-19] MEDS: hydrALAZINE HCL 25 MG TAB PO SCH ×2 (08:12→19:56)
[2021-03-19] MEDS: FUROSEMIDE 10 MG/ML 4 ML VIAL IV SCH ×2 (08:12→19:56)
[2021-03-19] MEDS: PANTOPRAZOLE 40 MG TABLET PO SCH (08:12)
[2021-03-19] MEDS: TAMSULOSIN 0.4 MG CAP.ER.24H PO SCH (08:12)
[2021-03-19] MEDS: ASPIRIN 81 MG PO SCH (08:12)
[2021-03-19] MEDS: ACETAMINOPHEN TAB 325 MG TAB PO SCH (08:13)
--- NOTE | 2021-03-19 10:19 | P.PN ---
Subjective Patient is seen in follow-up for acute kidney injury on chronic kidney disease. Creatinine 2.4 as of yesterday. Currently sitting up in bed. No chest pain or shortness of breath. Admits to good urine output. Incontinent. Vital signs are stable. General: The patient appeared well nourished and normally developed. HEENT: Head exam is unremarkable. Neck is without jugular venous distension. LUNGS: Breath sounds decreased. HEART: Rate and Rhythm are regular. ABDOMEN: Soft, no distention. EXTREMITITES: 1+ edema. Objective - Vital Signs Vital signs: Vital Signs Temp 98.9 F 03/19/21 05:00 Pulse 60 03/19/21 05:00 Resp 16 03/19/21 05:00 BP 105/49 03/19/21 05:00 Pulse Ox 95 03/19/21 05:00 Intake & Output 03/18/21 03/19/21 03/19/21 18:59 06:59 18:59 Intake Total 830 Balance 830 Weight 114.305 kg Intake: Oral 830 Other: Voiding Method Toilet Toilet Diaper Diaper # Voids 1 6 # Bowel Movements 1 1 - Labs CBC & Chem 7: 03/18/21 07:06 03/18/21 07:06 Labs: Abnormal Lab Results - Last 24 Hours (Table) 03/18/21 03/18/21 03/18/21 Range/Units 07:06 07:06 07:06 Lymphocytes # (Manual) 0.30 L (1.0-4.8) k/uL Carbon Dioxide 19.2 L (21.6-31.8) mmol/L BUN 69.0 H (9.0-27.0) mg/dL Creatinine 2.4 H (0.6-1.5) mg/dL Est GFR (CKD-EPI)AfAm 27.3 L (60.0-200.0) Est GFR (CKD-EPI)NonAf 23.5 L (60.0-200.0) BUN/Creatinine Ratio 28.75 H (12.00-20.00) Ratio Glucose 120 H (70-110) mg/dL Calcium 8.0 L (8.7-10.3) mg/dL Iron 13 L (65-175) ug/dL % Saturation 3.96 L (15.00-50.00) Total Bilirubin 1.5 H (0.2-1.2) mg/dL Total Protein 5.6 L (6.2-8.2) g/dL Albumin 3.40 L (3.80-4.90) g/dL Albumin/Globulin Ratio 1.55 L (1.60-3.17) g/dL Microbiology - Last 24 Hours (Table) 03/17/21 06:32 Urine Culture - Final Urine,Voided Klebsiella pneumoniae 03/17/21 10:08 Blood Culture - Preliminary Blood No Growth after 24 hours 03/17/21 09:53 Blood Culture - Preliminary Blood No Growth after 24 hours Assessment and Plan Plan: Assessment: 1. Acute kidney injury secondary to ATN secondary to cardiorenal syndrome. Also component of obstructive uropathy. Creatinine 2.5 on admission - 2.4 as of yesterday. 2. Chronic kidney disease stage IIIB/4 with baseline creatinine in the range of 1.62 secondary to nephrosclerosis. 3. Chronic pericardial effusion. 4. Acute on chronic systolic CHF ejection fraction of 40-45% with moderate to severe mitral regurgitation and severe tricuspid regurgitation. 5. Pulmonary hypertension. 6. Bilateral hydronephrosis. Urology following. No plans for intervention at this time. 7. Metabolic acidosis secondary to acute kidney injury. Maintained on oral bicarbonate. 8. Volume overload. 9. Anemia of chronic kidney disease. Iron deficiency noted. Also on Aranesp. 10. Klebsiella UTI maintained on antibiotics. Plan: Maintain IV Lasix. Add IV iron. Avoid nephrotoxins. Continue to monitor renal function and urine output.
[2021-03-19 10:30] LABS: African American GFR (CKD) 27.3 (60.0-200.0); Anion Gap 10.7 mmol/L (4.00-12.00); BUN/Creat Ratio 31.67 Ratio (12.00-20.00); Calcium 8.2 mg/dL (8.7-10.3); Carbon Dioxide 20.3 mmol/L (21.6-31.8); Magnesium 1.6 mg/dL (1.5-2.4); Non-African American GFR(CKD) 23.5 (60.0-200.0); Potassium 4.8 mmol/L (3.5-5.5)
[2021-03-19 10:40] LABS: D-Dimer 3.65 mg/L FEU (<0.60); Partial Thromboplastin Time 24.2 sec (22.0-30.0)
[2021-03-19 10:41] LABS: African American GFR (CKD) 25 (>60 ml/min/1.73 sqM); Anion Gap 13 mmol/L; Blood Urea Nitrogen 72 mg/dL (9-20); Calcium 8.7 mg/dL (8.4-10.2); Carbon Dioxide 18 mmol/L (22-30); Chloride 107 mmol/L (98-107); Glucose 154 mg/dL (74-99); LDH 446 U/L (313-618); Magnesium 1.7 mg/dL (1.6-2.3); Non-African American GFR(CKD) 22 (>60 ml/min/1.73 sqM); Potassium 4.7 mmol/L (3.5-5.1); Sodium 138 mmol/L (137-145)
[2021-03-19 10:47] LABS: HCT 23.6 % (39.0-53.0); HGB 7.5 gm/dL (13.0-17.5); Hypochromasia Moderate; MCH 28.4 pg (25.0-35.0); MCHC 31.7 g/dL (31.0-37.0); MCV 89.5 fL (80.0-100.0); Mean Platelet Volume 9.3; Platelet Count 91 k/uL (150-450); RBC 2.63 m/uL (4.30-5.90); RDW 15.5 % (11.5-15.5); WBC 3.6 k/uL (3.8-10.6)
--- NOTE | 2021-03-19 11:43 | P.PN ---
Subjective Progress Note Date: 03/19/21 HISTORY OF PRESENT ILLNESS This is an 85-year-old male patient of Dr. Hicks and Dr. Anderson with a previous medical history significant for coronary artery disease status post percutaneous coronary intervention and stent placement of the LAD in 2008, pacemaker upgrade to Biventricular pacemaker 04/26/2020, hypertension and hypertensive cardiovascular disease, hyperlipidemia, chronic atrial fibrillation, chronic low back pain. 2018 Echocardiogram revealed EF 30-35% with mild concentric left ventricular hypertrophy, mild aortic valve sclerosis, mild aortic regurgitation, severe mitral regurgitation, severe tricuspid regurgitation, severe pulmonary hypertension. Patient states that he was diagnosed with liver cancer under the care of Dr. Spencer and underwent procedure in his office on Monday, probable intravesical therapy and he has had BCG treatment in the past but this was a new location that he has not received before. On Monday evening, patient developed diarrhea that and 10 unit until Monday and patient started feeling better. His last bowel movement was on Monday and he denies any bloody stool or black. His last bowel movement was on Monday and he denies any other tarriness. Complains of abdominal pain, bloating and gas. He has recently completed course of antibiotic for urinary tract infection. He denies having any fever or chills. He has occasional shortness of breath which is his baseline. Patient is incontinent of urine. Patient also complains of generalized weakness has gotten worse over the weekend. Was brought into [facility] emergency center by his son. He was found to be afebrile, heart rate 58, blood pressure 150/60, pulse ox 98% on room air. WBC 6.9, hemoglobin 7.7, platelet count 108. Sodium 139, potassium 5.1, chloride 107, CO2 20, BUN 63 creatinine 2.5. Blood sugar 122. Liver function tests were normal. Urinalysis was cloudy, nitrate positive, leukoesterase large, RBC 6, wbc's greater than 182. Lactic acid 1.6. Coronavirus PCR not detected. CAT scan of the abdomen and pelvis without contrast revealed marked cardiomegaly with large pericardial effusion. Minimal right pleural effusion. New-onset bilateral hydronephrosis. Bilateral renal cysts. Stable 2.5 cm solid hyperdense lesion in the lateral right kidney. Decompressed urinary bladder. Patient's urinary bladder cancer cannot be well delineated on this exam. Patient has been started on ceftriaxone, [facility] with [facility]rology. 03/18: Echocardiogram reveals EF of 40-45%, LA severely dilated greater than 40 mL per M2, mild aortic regurgitation, moderate to severe mitral regurgitation, severe tricuspid regurgitation, moderate to severe pulmonary hypertension. Patient has been seen by urology and systemic symptoms could be related to Gemcitabine but less likely since it was given intravesically. Hydronephrosis is new and will follow along. Anemia workup has been started and consult added for nephrology and Lasix IV 40 mg twice daily has been added as well as sodium bicarb oral, Aranesp. 03/19: Patient is urinating well. He denies abdominal pain. No chest pain or shortness of breath. He has not had a bowel movement thus stool for occult blood is not been sent. Repeat blood work reveals WBC 3.6, hemoglobin 7.5, platelet count 91. D-dimer came back at 3.65. Sodium 138, potassium 4.7, chloride 107, CO2 18, BUN 72 and creatinine 3.59. Blood sugar 154. LDH 446. Magnesium 1.7. He is status post transfusion of Ferrlecit 1. Patient is followed closely by nephrology with plan to continue IV Lasix, IV iron, avoid nephrotoxins. We have added in a consult for oncology. The following tests to been ordered and are pending: fibrinogen level, PTT, haptoglobin. Urine culture is positive for Klebsiella pneumoniae, pansensitive. REVIEW OF SYSTEMS Constitutional: No fever, no chills, no night sweats. No weight change. Reports weakness, Reports fatigue. No daytime sleepiness. EENT: No headache. No blurred vision or double vision, no loss of vision. No nasal drainage or congestion. No epistaxis. No sore throat. Lungs: No shortness of breath, cough, no sputum production. No wheezing. Cardiovascular: No chest pain, chronic lower extremity edema. No palpitations. No paroxysmal nocturnal dyspnea. No orthopnea. No lightheadedness or dizzi ness. No syncopal episodes. Abdominal: No abdominal pain. No nausea, vomiting. Reports diarrhea. No constipation. No bloody or tarry stools.. No loss of appetite. Genitourinary: No dysuria, increased frequency, urgency. No urinary retention. Reports urinary incontinence. Musculoskeletal: No myalgias. Reports muscle weakness, Reports gait dysfunction, no frequent falls. No back pain. No neck pain. Integumentary: No wounds, no lesions. No rash or pruritus. No unusual bruising. No change in hair or nails. Neurologic: No aphasia. No facial droop. No change in mentation. No head injury. No headache. No paralysis. No paresthesia. Psychiatric: No depression. No anxiety. Endocrine: No abnormal blood sugars. PHYSICAL EXAMINATION Gen: This is an 85-yesr-old male patient seen in the emergency center and son is at bedside. Son is assisted him out of the bathroom. Patient is somewhat unsteady with minimal ambulation. HEENT: Head is atraumatic, normocephalic. Pupils equal, round. Sclerae is anicteric. NECK: Supple. No JVD. No lymphadenopathy. No thyromegaly. LUNGS: Clear to auscultation. No wheezes or rhonchi. No intercostal retractions. HEART: Stent heart sounds. Irregularly irregular rate and rhythm secondary to atrial fibrillation. 2/6 systolic ejection murmur at the left sternal border. ABDOMEN: Soft. Bowel sounds are present. No masses. No tenderness. EXTREMITIES: Brawny skin changes secondary to chronic venous stasis with 1+ renea ateral pedal edema. No calf tenderness. NEUROLOGICAL: Patient is awake, alert and oriented x3. Cranial nerves 2 through 12 are grossly intact. Mild generalized weakness. ASSESSMENT AND PLAN 1. Diarrhea possibly secondary to recent bladder cancer treatment, possibly gastroenteritis. Diarrhea has resolved, IV fluids will be discontinued due to underlying heart failure. Zofran as needed for nausea and vomiting. 2. Acute Klebsiella urinary tract infection. Patient started on ceftriaxone 2 g IV piggyback daily. 3. Anemia, possible acute on chronic, rule out acute blood loss. Stool for occult blood has not been sent. Patient started on Aranesp. Iron studies. Total of 4 doses of Ferrlecit have been ordered, patient is on / today. 4. Acute kidney injury secondary to ATN secondary to cardiorenal syndrome and component of obstructive uropathy with chronic kidney disease stage IIIb/4. Lisinopril, Lasix, Aldactone on hold. Consult with nephrology appreciated. Patient started on Lasix 40 mg IV twice daily, sodium bicarb oral, Aranesp. 5. Bicytopenia with low RBC and platelet counts possibly related to bladder cancer. Monitor. Consult with oncology. 6. Benign prostatic hypertrophy. Continue Flomax 0.4 mg daily. 7. New onset bilateral hydronephrosis. Urology on consult. 8. Coronary artery disease status post percutaneous current intervention and stent placement of the LAD back in 2008. Continue aspirin 81 mg once every day, Coreg 12.5 mg twice daily. 9. Hypertension. Hold lisinopril due to acute kidney injury. Patient started on hydralazine 25 mg twice daily, continue Coreg 12.5 mg twice daily. 10. Hyperlipidemia. Continue Lipitor 20 mg orally once every day. 11. Chronic atrial fibrillation status post biventricular pacemaker. 12. Chronic systolic heart failure. Hold Aldactone, lisinopril. Continue Lasix 40 mg IV every 12 hours. 13. Bilateral lower extremity edema, chronic. Continue Lasix. 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 15. History of prediabetes, low-carb diet. 16. Obesity with possible obstructive sleep apnea. 17. DVT prophylaxis. SCDs and CYNTHIA hose. 18. GI prophylaxis. Protonix 40 mg daily. DISCHARGE PLAN Home. Impression and plan of care have been directed as dictated by the signing physician. Razia Lanier nurse practitioner acting as scribe for signing physician. Objective - Vital Signs Vital signs: Vital Signs Temp 98.9 F 03/19/21 05:00 Pulse 60 03/19/21 05:00 Resp 16 03/19/21 05:00 BP 105/49 03/19/21 05:00 Pulse Ox 95 03/19/21 05:00 Intake & Output 03/18/21 03/19/21 03/19/21 18:59 06:59 18:59 Intake Total 830 Balance 830 Weight 114.305 kg Intake: Oral 830 Other: Voiding Method Toilet Toilet Diaper Diaper # Voids 1 6 # Bowel Movements 1 1 - Labs CBC & Chem 7: 03/19/21 09:34 03/19/21 09:34 Labs: Abnormal Lab Results - Last 24 Hours (Table) 03/18/21 03/18/21 03/18/21 Range/Units 07:06 07:06 07:06 Lymphocytes # (Manual) 0.30 L (1.0-4.8) k/uL Carbon Dioxide 19.2 L (21.6-31.8) mmol/L BUN 69.0 H (9.0-27.0) mg/dL Creatinine 2.4 H (0.6-1.5) mg/dL Est GFR (CKD-EPI)AfAm 27.3 L (60.0-200.0) Est GFR (CKD-EPI)NonAf 23.5 L (60.0-200.0) BUN/Creatinine Ratio 28.75 H (12.00-20.00) Ratio Glucose 120 H (70-110) mg/dL Calcium 8.0 L (8.7-10.3) mg/dL Iron 13 L (65-175) ug/dL % Saturation 3.96 L (15.00-50.00) Total Bilirubin 1.5 H (0.2-1.2) mg/dL Total Protein 5.6 L (6.2-8.2) g/dL Albumin 3.40 L (3.80-4.90) g/dL Albumin/Globulin Ratio 1.55 L (1.60-3.17) g/dL Microbiology - Last 24 Hours (Table) 03/17/21 06:32 Urine Culture - Final Urine,Voided Klebsiella pneumoniae 03/17/21 10:08 Blood Culture - Preliminary Blood No Growth after 24 hours 03/17/21 09:53 Blood Culture - Preliminary Blood No Growth after 24 hours
[2021-03-19] MEDS: SODIUM FERRIC GLUCONAT-SUCROSE 125 MG in SODIUM CHLORIDE 0.9% 100 ML IVPB SCH (12:05)
[2021-03-19] MEDS: ATORVASTATIN 20 MG TAB PO SCH (19:56)
[2021-03-20] MEDS: SODIUM BICARBONATE TAB 650 MG TAB PO SCH (08:24)
[2021-03-20] MEDS: ACETAMINOPHEN TAB 325 MG TAB PO SCH (08:24)
[2021-03-20] MEDS: PANTOPRAZOLE 40 MG TABLET PO SCH (08:24)
[2021-03-20] MEDS: carvediloL 12.5 MG TAB PO SCH (08:24)
[2021-03-20] MEDS: ASPIRIN 81 MG PO SCH (08:24)
[2021-03-20] MEDS: hydrALAZINE HCL 25 MG TAB PO SCH (08:24)
[2021-03-20] MEDS: TAMSULOSIN 0.4 MG CAP.ER.24H PO SCH (08:24)
[2021-03-20] MEDS: SODIUM FERRIC GLUCONAT-SUCROSE 125 MG in SODIUM CHLORIDE 0.9% 100 ML IVPB SCH (08:25)
[2021-03-20] MEDS: FUROSEMIDE 10 MG/ML 4 ML VIAL IV SCH (08:26)
--- NOTE | 2021-03-20 08:59 | P.PN ---
Subjective Progress Note Date: 03/20/21 The patient is in the hospital with urinary tract infection with sepsis after instillation of intravesical agent, gemcitabine for his recurrent bladder cancer. My initial evaluation was uncertain as to the cause of the overall systemic symptoms but with a positive Klebsiella urinary infection I suspect t his is the cause. He has some mild hydronephrosis which is probably due to bladder inflammation aggravated by the inflammation from the gemcitabine. Point he can be discharged home on oral antibiotics. He should follow-up with next week so further determination of his treatment for his bladder cancer can be made. This has been discussed with the patient. Objective - Vital Signs Vital signs: Vital Signs Temp 98.0 F 03/20/21 05:00 Pulse 57 L 03/20/21 05:00 Resp 16 03/20/21 05:00 BP 120/48 03/20/21 05:00 Pulse Ox 96 03/20/21 05:00 Intake & Output 03/19/21 03/20/21 03/20/21 18:59 06:59 18:59 Intake Total 2790 Balance 2790 Intake: Intake, IV Titration 150 Amount Sodium Ferric Gluconat- 100 Sucrose 125 mg In Sodium Chloride 0.9% 100 ml @ 100 mls/hr IVPB DAILY [facility] Rx#:[id number] cefTRIAXone 2 gm In 50 Sodium Chloride 0.9% 50 ml @ 100 mls/hr IVPB Q24HR [facility] Rx#:[id number] Oral 2640 Other: Voiding Method Toilet Toilet Diaper Diaper # Voids 5 4 - Labs CBC & Chem 7: 03/19/21 09:34 03/19/21 09:34 Labs: Abnormal Lab Results - Last 24 Hours (Table) 03/19/21 03/19/21 03/19/21 Range/Units 05:35 09:34 09:34 WBC 3.6 L (3.8-10.6) k/uL RBC 2.63 L (4.30-5.90) m/uL Hgb 7.5 L (13.0-17.5) gm/dL Hct 23.6 L (39.0-53.0) % Plt Count 91 L (150-450) k/uL D-Dimer (<0.60) mg/L FEU Carbon Dioxide 20.3 L 18 L (21.6-31.8) mmol/L BUN 76.0 H 72 H (9.0-27.0) mg/dL Creatinine 2.4 H 2.59 H (0.6-1.5) mg/dL Est GFR (CKD-EPI)AfAm 27.3 L (60.0-200.0) Est GFR (CKD-EPI)NonAf 23.5 L (60.0-200.0) BUN/Creatinine Ratio 31.67 H (12.00-20.00) Ratio Glucose 126 H 154 H (70-110) mg/dL Calcium 8.2 L (8.7-10.3) mg/dL 03/19/21 Range/Units 09:34 WBC (3.8-10.6) k/uL RBC (4.30-5.90) m/uL Hgb (13.0-17.5) gm/dL Hct (39.0-53.0) % Plt Count (150-450) k/uL D-Dimer 3.65 H (<0.60) mg/L FEU Carbon Dioxide (21.6-31.8) mmol/L BUN (9.0-27.0) mg/dL Creatinine (0.6-1.5) mg/dL Est GFR (CKD-EPI)AfAm (60.0-200.0) Est GFR (CKD-EPI)NonAf (60.0-200.0) BUN/Creatinine Ratio (12.00-20.00) Ratio Glucose (70-110) mg/dL Calcium (8.7-10.3) mg/dL Microbiology - Last 24 Hours (Table) 03/17/21 09:53 Blood Culture - Preliminary Blood No Growth after 48 hours 03/17/21 10:08 Blood Culture - Preliminary Blood No Growth after 48 hours 03/17/21 06:32 Urine Culture - Final Urine,Voided Klebsiella pneumoniae
--- NOTE | 2021-03-20 10:46 | P.DS ---
Providers Date of admission: 03/17/21 09:16 Attending physician: Taty Villafuerte MD Consults: 03/17/21 09:42 Consult Physician Urgent Consulting Provider: Fran Ybarra Consult Reason/Comments: Bilateral hydronephrosis and hydroureter Do you want consulting provider notified?: Yes 03/17/21 10:24 Consult Physician Routine Consulting Provider: Felipe Anderson Consult Reason/Comments: pericardial effusion Do you want consulting provider notified?: Yes 03/18/21 09:04 Consult Physician Routine Consulting Provider: Smith Adame Consult Reason/Comments: hetal Do you want consulting provider notified?: Yes 03/19/21 09:11 Consult Physician Routine Consulting Provider: Salazar Olvera Consult Reason/Comments: low counts Do you want consulting provider notified?: Yes Primary care physician: oJse Carlos Hicks [facility] Course: HISTORY OF PRESENT ILLNESS This is an 85-year-old male patient of Dr. Hicks and Dr. Anderson with a previous medical history significant for coronary artery disease status post percutaneous coronary intervention and stent placement of the LAD in 2008, pacemaker upgrade to Biventricular pacemaker 04/26/2020, hypertension and hypertensive cardiovascular disease, hyperlipidemia, chronic atrial fibrillation, chronic low back pain. 2018 Echocardiogram revealed EF 30-35% with mild concentric left ventricular hypertrophy, mild aortic valve sclerosis, mild aortic regurgitation, severe mitral regurgitation, severe tricuspid regurgitation, severe pulmonary hypertension. Patient states that he was diagnosed with liver cancer under the care of Dr. Spencer and underwent procedure in his office on Monday, probable intravesical therapy and he has had BCG treatment in the past but this was a new location that he has not received before. On Monday evening, patient developed diarrhea that and 10 unit until Monday and patient started feeling better. His last bowel movement was on Monday and he denies any bloody stool or black. His last bowel movement was on Monday and he denies any other tarriness. Complains of abdominal pain, bloating and gas. He has recently completed course of antibiotic for urinary tract infection. He denies having any fever or chills. He has occasional shortness of breath which is his baseline. Patient is incontinent of urine. Patient also complains of generalized weakness has gotten worse over the weekend. Was brought into [facility] emergency center by his son. He was found to be afebrile, heart rate 58, blood pressure 150/60, pulse ox 98% on room air. WBC 6.9, hemoglobin 7.7, platelet count 108. Sodium 139, potassium 5.1, chloride 107, CO2 20, BUN 63 creatinine 2.5. Blood sugar 122. Liver function tests were normal. Urinalysis was cloudy, nitrate positive, leukoesterase large, RBC 6, wbc's greater than 182. Lactic acid 1.6. Coronavirus PCR not detected. CAT scan of the abdomen and pelvis without contrast revealed marked cardiomegaly with large pericardial effusion. Minimal right pleural effusion. New-onset bilateral hydronephrosis. Bilateral renal cysts. Stable 2.5 cm solid hyperdense lesion in the lateral right kidney. Decompressed urinary bladder. Patient's urinary bladder cancer cannot be well delineated on this exam. Patient has been started on ceftriaxone, [facility] consult with urology. 03/18: Echocardiogram reveals EF of 40-45%, LA severely dilated greater than 40 mL per M2, mild aortic regurgitation, moderate to severe mitral regurgitation, severe tricuspid regurgitation, moderate to severe pulmonary hypertension. Patient has been seen by urology and systemic symptoms could be related to Gemcitabine but less likely since it was given intravesically. Hydronephrosis is new and will follow along. Anemia workup has been started and consult added for nephrology and Lasix IV 40 mg twice daily has been added as well as sodium bicarb oral, Aranesp. 03/19: Patient is urinating well. He denies abdominal pain. No chest pain or shortness of breath. He has not had a bowel movement thus stool for occult blood is not been sent. Repeat blood work reveals WBC 3.6, hemoglobin 7.5, platelet count 91. D-dimer came back at 3.65. Sodium 138, potassium 4.7, chloride 107, CO2 18, BUN 72 and creatinine 3.59. Blood sugar 154. LDH 446. Magnesium 1.7. He is status post transfusion of Ferrlecit 1. Patient is followed closely by nephrology with plan to continue IV Lasix, IV iron, avoid nephrotoxins. We have added in a consult for oncology. The following tests to been ordered and are pending: fibrinogen level, PTT, haptoglobin. Urine culture is positive for Klebsiella pneumoniae, pansensitive. 03/20: Is found sitting up in a chair eating his breakfast. Patient denies any difficulties in swallowing or eating. No nausea or vomiting. Patient is able to urinate. Denies any abdominal pain. Patient does not have any chest pain or shortness of breath. He is anxious to go home and was cleared by urology. He does live alone however he has family who is able to come and assist as needed. ASSESSMENT AND PLAN 1. Diarrhea possibly secondary to recent bladder cancer treatment, possibly gastroenteritis. 2. Acute Klebsiella urinary tract infection. 3. Anemia, possible acute on chronic, rule out acute blood loss. 4. Acute kidney injury secondary to ATN secondary to cardiorenal syndrome and component of obstructive uropathy with chronic kidney disease stage IIIb/ 4. Lisinopril, Lasix, Aldactone on hold. 5. Bicytopenia with low RBC and platelet counts possibly related to bladder cancer. 6. Benign prostatic hypertrophy. 7. New onset bilateral hydronephrosis. 8. Coronary artery disease status post percutaneous current intervention and stent placement of the LAD back in 2008. 9. Hypertension. Hold lisinopril due to acute kidney injury. 10. Hyperlipidemia. 11. Chronic atrial fibrillation status post biventricular pacemaker. 12. Chronic systolic heart failure. Hold Aldactone, lisinopril. 13. Bilateral lower extremity edema, chronic. 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 15. History of prediabetes, low-carb diet. 16. Obesity with possible obstructive sleep apnea. DISCHARGE Disposition: Home. Impression and plan of care have been directed as dictated by the signing physician. Ankita Wellington nurse practitioner acting as scribe for signing physician. Patient Condition at Discharge: Fair Plan - Discharge Summary Discharge Rx Participant: No New Discharge Prescriptions: New Sodium Bicarbonate Tab 650 mg PO BID #60 tab Cefuroxime [Ceftin] 250 mg PO BID 7 Days #14 tab Continue Atorvastatin Calcium [Lipitor] 20 mg PO HS Lisinopril [Prinivil] 10 mg PO DAILY Tamsulosin [Flomax] 0.4 mg PO DAILY Nitroglycerin Sl Tabs [Nitrostat] 0.4 mg SUBLINGUAL Q5M PRN PRN Reason: Chest Pain Aspirin EC [Ecotrin Low Dose] 81 mg PO DAILY Acetaminophen [Tylenol Arthritis] 650 mg PO DAILY Spironolactone [Aldactone] 12.5 mg PO DAILY #50 tablet Carvedilol [Coreg] 12.5 mg PO BID #180 tablet Furosemide [Lasix] 40 mg PO DAILY Discharge Medication List Atorvastatin Calcium [Lipitor] 20 mg PO HS 05/04/14 [History] Lisinopril [Prinivil] 10 mg PO DAILY 12/14/15 [History] Tamsulosin [Flomax] 0.4 mg PO DAILY 09/25/16 [History] Aspirin EC [Ecotrin Low Dose] 81 mg PO DAILY 04/16/18 [History] Nitroglycerin Sl Tabs [Nitrostat] 0.4 mg SUBLINGUAL Q5M PRN 04/16/18 [History] Acetaminophen [Tylenol Arthritis] 650 mg PO DAILY 05/13/20 [History] Carvedilol [Coreg] 12.5 mg PO BID #180 tablet 05/18/20 [Rx] Spironolactone [Aldactone] 12.5 mg PO DAILY #50 tablet 05/18/20 [Rx] Furosemide [Lasix] 40 mg PO DAILY 03/17/21 [History] Cefuroxime [Ceftin] 250 mg PO BID 7 Days #14 tab 03/20/21 [Rx] Sodium Bicarbonate Tab 650 mg PO BID #60 tab 03/20/21 [Rx] Follow up Appointment(s)/Referral(s): Sherron Harris MD [STAFF PHYSICIAN] - 2 Weeks Ortega Huertas MD [STAFF PHYSICIAN] - 2 Weeks Dominick Spencer MD [Family Provider] - 1 Week Jose Carlos Hicks MD [Primary Care Provider] - 1-2 days
--- NOTE | 2021-03-20 13:57 | P.CONS ---
History of Present Illness - Reason for Consult Consult date: 03/20/21 Anemia Requesting physician: Taty Villafuerte - Chief Complaint weakness - History of Present Illness Mr. Lucero is a very pleasant 85-year-old gentleman with multiple comorbidities including significant heart disease, chronic pericardial effusion, severe pulmonary hypertension, bladder cancer on intravesicular chemotherapy with Gemzar per urology, and renal failure who is here for generalized weakness and abdominal pain. He was found to have acute on chronic kidney disease with a creatinine of 2.5 from baseline of 1.6. Last creatinine checked was from April 2020. Noncontrast CT revealed bilateral hydronephrosis. He underwent workup with BE 12, folate, iron panel, and DIC panel which was consistent with elevated d-dimer, normal fibrinogen of 402, normal vitamin B12 and folate, and iron deficiency with a 3% saturation. LDH was normal. CBC revealed downtrending WBC, 3.6, hemoglobin 7.5, platelet 91. He has had chronic mild serum cytopenia around 100. White count in the past however has been normal. His hemoglobin from 2019 was 11, and now down to 7. MCV 90. He felt much better after getting a dose of IV iron and IV Lasix. Plan is for him to go home today. Past Medical History Past Medical History: Atrial Fibrillation, Coronary Artery Disease (CAD), Cancer, Chest Pain / Angina, Hyperlipidemia, Hypertension, Osteoarthritis (OA), Pneumonia, Renal Disease Additional Past Medical History / Comment(s): SEE DR. HOLLOWAY'S UPDATED CARDIOVASCULAR HX. 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 History of Any Multi-Drug Resistant Organisms: None Reported Past Surgical History: Appendectomy, Heart Catheterization, Heart Ca theterization With Stent, Joint Replacement, Pacemaker Additional Past Surgical History / Comment(s): 10/03/08 PTCA with stenting of LAD, partial LEFT KNEE REPLACEMENT, BLADDER SCOPE recently. Past Anesthesia/Blood Transfusion Reactions: No Reported Reaction Date of Last Stent Placement:: 10/03/08 Type of Cardiac Device: Permanent Pacemaker Device Placement Date:: 2015 Past Psychological History: No Psychological Hx Reported Smoking Status: Never smoker Past Alcohol Use History: Rare Past Drug Use History: None Reported - Past Family History Father Family Medical History: Coronary Artery Disease (CAD), Myocardial Infarction ([place]) Additional Family Medical History / Comment(s): Father at age of 63 from [place]. Mother Family Medical History: CVA/TIA Additional Family Medical History / Comment(s): Mother at age 65 from CVA. Brother(s) Family Medical History: Pulmonary Embolus Additional Family Medical History / Comment(s): Patient had 1 brother that at age 61 from pulmonary embolism. Sister(s) Family Medical History: No Reported History Additional Family Medical History / Comment(s): Patient had 3 sisters and one from back trouble. Daughter(s) Family Medical History: No Reported History Additional Family Medical History / Comment(s): Patient has one daughter with no major medical problems. Son(s) Family Medical History: No Reported History Additional Family Medical History / Comment(s): Patient has one son with no major medical problems. Medications and Allergies Home Medications Medication Instructions Recorded Confirmed Type Atorvastatin Calcium [Lipitor] 20 mg PO HS 05/04/14 03/17/21 History Lisinopril [Prinivil] 10 mg PO DAILY 12/14/15 03/17/21 History Tamsulosin [Flomax] 0.4 mg PO DAILY 09/25/16 03/17/21 History Aspirin EC [Ecotrin Low Dose] 81 mg PO DAILY 04/16/18 03/17/21 History Nitroglycerin Sl Tabs [Nitrostat] 0.4 mg SUBLINGUAL Q5M PRN 04/16/18 03/17/21 History Acetaminophen [Tylenol Arthritis] 650 mg PO DAILY 05/13/20 03/17/21 History Carvedilol [Coreg] 12.5 mg PO BID #180 tablet 05/18/20 03/17/21 Rx Spironolactone [Aldactone] 12.5 mg PO DAILY #50 tablet 05/18/20 03/17/21 Rx Furosemide [Lasix] 40 mg PO DAILY 03/17/21 03/17/21 History Cefuroxime [Ceftin] 250 mg PO BID 7 Days #14 tab 03/20/21 Rx Sodium Bicarbonate Tab 650 mg PO BID #60 tab 03/20/21 Rx Allergies Allergy/AdvReac Type Severity Reaction Status Date / Time No Known Allergies Allergy Verified 03/17/21 10:34 Physical Exam Vitals: Vital Signs Temp Pulse Resp BP Pulse Ox 03/20/21 05:00 98.0 F 57 L 16 120/48 96 03/19/21 20:19 97.5 F L 63 18 125/64 98 Intake and Output 03/19/21 03/20/21 03/20/21 22:59 06:59 14:59 Intake Total 870 Balance 870 Intake: Intake, IV Titration 150 Amount Sodium Ferric Gluconat- 100 Sucrose 125 mg In Sodium Chloride 0.9% 100 ml @ 100 mls/hr IVPB DAILY [facility] Rx#:[id number] cefTRIAXone 2 gm In 50 Sodium Chloride 0.9% 50 ml @ 100 mls/hr IVPB Q24HR [facility] Rx#:[id number] Oral 720 Other: Voiding Method Toilet Toilet Diaper Diaper # Voids 5 4 Gen.: No acute distress HEENT: Mucosa moist Neck: Supple Lungs: No respiratory distress Heart: Regular rate Abdomen: Soft MSK: Appropriate strength in all 4 extremities Neuro: Alert and oriented 3 Skin: No jaundice Psych: Appropriate affect Results CBC & Chem 7: 03/19/21 09:34 03/19/21 09:34 Labs: Microbiology - Last 24 Hours (Table) 03/17/21 10:08 Blood Culture - Preliminary Blood No Growth after 72 hours 03/17/21 09:53 Blood Culture - Preliminary Blood No Growth after [address] scan - abdomen: report reviewed CT scan - pelvis: report reviewed Assessment and Plan Assessment: 1. Iron deficiency 2. Anemia 3. ANI on CKD 4. Pericardial effusion 5. Bladder cancer on intravesicular chemotherapy with urology 6. Thrombocytopenia 7. Leukopenia 8. Weakness Plan: Mr. Lucero is a very pleasant 85-year-old gentleman with multiple comorbidities who is here for generalized weakness, found to have chronic pericardial effusion, acute on chronic anemia, acute on chronic thrombocytopenia, and acute on chronic renal failure. Workup of his CBC changes and anemia insistent with iron deficiency. LDH, B12, folate, DIC panel negative. He also developed downtrending WBC although differential was not checked. He received a dose of IV iron as well as a dose of IV Lasix with significant improvement of his symptoms. He is eager to go home now ready for discharge. His CBC changes could be related to the recent intravesicular chemotherapy he has received, Gemzar, 3 urology. Also due to his underlying iron deficiency and renal failure. His platelets are coming back up. No objections to discharge from hematology standpoint. He will need to follow-up in clinic for repeat CBC and to determine if further workup and management as needed. Agree with IV iron to replace his deficit which could be done either by us outpatient or by his pharmacovigilance scientist. Discussed with the patient and his son in great detail. All of their questions were answered. They were agreeable to the plan.
[2021-03-20 14:23] VITALS: BP 120/68; PULSE 55; RESP 18; TEMP 97.5
--- NOTE | 2021-03-20 14:36 | PN ---
PROGRESS NOTE Patient is seen for followup for acute kidney injury on top of chronic kidney disease. Renal function has been very stable. Patient is currently in the bathroom. He states he feels well and there are plans for possible discharge today. His vital signs are reviewed. Blood pressure 120/48, heart rate 57 per minute, he is afebrile. Urine output is not accurately charted. LABS: Labs are reviewed. Hemoglobin was 7.5 yesterday. No labs are available from today. Serum creatinine 2.59 from 03/19/2021. Urine culture had grown Klebsiella pneumonia. ASSESSMENT: 1. Acute kidney injury, mostly cardiorenal and obstructive uropathy. Renal function is stable. 2. Klebsiella urinary tract infection, maintained on antibiotics. 3. Chronic pericardial effusion. 4. Chronic kidney disease stage 3B to 4, baseline creatinine 1.6 secondary to nephrosclerosis. 5. Acute on chronic systolic congestive heart failure, ejection fraction 40-45% with moderate to severe mitral regurg and severe tricuspid regurgitation. 6. Bilateral hydronephrosis, being followed by Urology. No plans for intervention at this time. PLAN: Patient can be discharged to follow up as outpatient with Nephrology and Urology. MMODL / IJN: [id number] /
== END 2021-03-20 15:00 | disposition home or self-care (01) | DRG 689 ==
LOC: EC 05:56 → 5NMEDONC 09:16
PROVIDERS: ADMIT Internal Medicine; ATTEND Internal Medicine
DX: N13.6 Pyonephrosis (principal); I50.23 Acute on chronic systolic (congestive) heart failure; E87.2 Acidosis; I13.0 Hypertensive heart and chronic kidney disease with heart failure and stage 1 through stage 4 chronic kidney disease, or unspecified chronic kidney disease; I31.3 Pericardial effusion (noninflammatory); I48.20 Chronic atrial fibrillation, unspecified; K52.1 Toxic gastroenteritis and colitis; N17.0 Acute kidney failure with tubular necrosis; D63.1 Anemia in chronic kidney disease; C67.9 Malignant neoplasm of bladder, unspecified; B96.1 Klebsiella pneumoniae [K. pneumoniae] as the cause of diseases classified elsewhere; D69.6 Thrombocytopenia, unspecified; D72.819 Decreased white blood cell count, unspecified; E61.1 Iron deficiency; E66.9 Obesity, unspecified; Z68.33 Body mass index [BMI] 33.0-33.9, adult; Z20.822 Contact with and (suspected) exposure to COVID-19; E78.5 Hyperlipidemia, unspecified; F17.210 Nicotine dependence, cigarettes, uncomplicated; I08.3 Combined rheumatic disorders of mitral, aortic and tricuspid valves; T45.1X5A Adverse effect of antineoplastic and immunosuppressive drugs, initial encounter; I25.10 Atherosclerotic heart disease of native coronary artery without angina pectoris; I25.5 Ischemic cardiomyopathy; I27.20 Pulmonary hypertension, unspecified; Z87.01 Personal history of pneumonia (recurrent); G89.29 Other chronic pain; G47.33 Obstructive sleep apnea (adult) (pediatric); G51.0 Bell's palsy; M54.9 Dorsalgia, unspecified; N18.32 Chronic kidney disease, stage 3b; N28.1 Cyst of kidney, acquired; N40.1 Benign prostatic hyperplasia with lower urinary tract symptoms; R32 Unspecified urinary incontinence; R62.7 Adult failure to thrive; Z79.82 Long term (current) use of aspirin; Z79.899 Other long term (current) drug therapy; Z82.3 Family history of stroke; Z82.49 Family history of ischemic heart disease and other diseases of the circulatory system; Z85.05 Personal history of malignant neoplasm of liver; Z85.51 Personal history of malignant neoplasm of bladder; Z87.440 Personal history of urinary (tract) infections; Z95.0 Presence of cardiac pacemaker; Z95.5 Presence of coronary angioplasty implant and graft; Z96.652 Presence of left artificial knee joint; Z90.49 Acquired absence of other specified parts of digestive tract
CPT/HCPCS: 36415; 74176; 80048; 80053; 81001; 82150; 82607; 82728; 82746; 83010; 83540; 83550; 83605; 83615; 83690; 83735; 85025; 85027; 85379; 85384; 85730; 87040; 87077; 87086; 87186; 87635; 93306; 96361; 96374; 99285

== ENCOUNTER 2021-04-01 06:11 | Day surgery (SDC) | payer MEDICARE, BC ==
--- NOTE | 2021-03-29 09:16 | P.GSHP ---
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 He received induction intravesical BCG followed by maintenance BCG. 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 Resection in October 2020 revealed high-grade urothelial carcinoma with superficial lamina propria invasion. Reresection in November 2020 showed possible CIS. He subsequently developed recurrent UTIs. He received a single instillation of gemcitabine on 03/12/2021. He was subsequently hospitalized with weakness and malaise. He was found to be anemic, and also to have bilateral hydronephrosis. - Constitutional Constitutional: Reports weakness, Denies chills, Denies fever - Cardiovascular Cardiovascular: Reports edema - Genitourinary (Male) Genitourinary: Reports urinary frequency, Denies dysuria, Denies hematuria Past Medical History Past Medical History: Atrial Fibrillation, Coronary Artery Disease (CAD), Cancer, Chest Pain / Angina, Hyperlipidemia, Hypertension, Osteoarthritis (OA), Pneumonia, Renal Disease Additional Past Medical History / Comment(s): SEE DR. HOLLOWAY'S UPDATED CARDIOVASCULAR HX. 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 History of Any Multi-Drug Resistant Organisms: None Reported Past Surgical History: Appendectomy, Heart Catheterization, Heart Catheterization With Stent, Joint Replacement, Pacemaker Additional Past Surgical History / Comment(s): 10/03/08 PTCA with stenting of LAD, partial LEFT KNEE REPLACEMENT, BLADDER SCOPE recently. Past Anesthesia/Blood Transfusion Reactions: No Reported Reaction Date of Last Stent Placement:: 10/03/08 Type of Cardiac Device: Permanent Pacemaker Device Placement Date:: 2015 Past Psychological History: No Psychological Hx Reported Smoking Status: Never smoker Past Alcohol Use History: Rare Past Drug Use History: None Reported - Past Family History Father Family Medical History: Coronary Artery Disease (CAD), Myocardial Infarction ([place]) Additional Family Medical History / Comment(s): Father at age of 63 from [place]. Mother Family Medical History: CVA/TIA Additional Family Medical History / Comment(s): Mother at age 65 from CVA. Brother(s) Family Medical History: Pulmonary Embolus Additional Family Medical History / Comment(s): Patient had 1 brother that at age 61 from pulmonary embolism. Sister(s) Family Medical History: No Reported History Additional Family Medical History / Comment(s): Patient had 3 sisters and one from back trouble. Daughter(s) Family Medical History: No Reported History Additional Family Medical History / Comment(s): Patient has one daughter with no major medical problems. Son(s) Family Medical History: No Reported History Additional Family Medical History / Comment(s): Patient has one son with no major medical problems. Medications and Allergies Home Medications Medication Instructions Recorded Confirmed Type Atorvastatin Calcium [Lipitor] 20 mg PO HS 05/04/14 03/17/21 History Lisinopril [Prinivil] 10 mg PO DAILY 12/14/15 03/17/21 History Tamsulosin [Flomax] 0.4 mg PO DAILY 09/25/16 03/17/21 History Aspirin EC [Ecotrin Low Dose] 81 mg PO DAILY 04/16/18 03/17/21 History Nitroglycerin Sl Tabs [Nitrostat] 0.4 mg SUBLINGUAL Q5M PRN 04/16/18 03/17/21 History Acetaminophen [Tylenol Arthritis] 650 mg PO DAILY 05/13/20 03/17/21 History Carvedilol [Coreg] 12.5 mg PO BID #180 tablet 05/18/20 03/17/21 Rx Spironolactone [Aldactone] 12.5 mg PO DAILY #50 tablet 05/18/20 03/17/21 Rx Furosemide [Lasix] 40 mg PO DAILY 03/17/21 03/17/21 History Cefuroxime [Ceftin] 250 mg PO BID 7 Days #14 tab 03/20/21 Rx Sodium Bicarbonate Tab 650 mg PO BID #60 tab 03/20/21 Rx Allergies Allergy/AdvReac Type Severity Reaction Status Date / Time No Known Allergies Allergy Verified 03/17/21 10:34 Surgical - Exam - General well developed, well nourished, no distress - Respiratory normal respiratory effort - Abdomen Abdomen: soft, non tender, no guarding, no rigid, no rebound - Genitourinary normal penis with no external lesions, testicles non-tender - Psychiatric oriented to time, oriented to person, oriented to place, speech is normal, memory intact Assessment and Plan (1) Malignant neoplasm of bladder, unspecified Status: Acute Code(s): C67.9 - MALIGNANT NEOPLASM OF BLADDER, UNSPECIFIED SNOMED Code(s): 758623373 (2) Unspecified hydronephrosis Status: Acute Code(s): N13.30 - UNSPECIFIED HYDRONEPHROSIS SNOMED Code(s): 29901695 Plan: Cystoscopy, bladder biopsies, high lateral retrograde pyelogram, possible bladder tumor resection, possible ureteroscopy, possible ureteral stent insertion. The procedure has been reviewed in detail with the patient and his son. They're aware of potential risks, which include anesthesia, bleeding, infection, bladder perforation, and ureteral injury.
[2021-03-30 13:42] VITALS: BMI 33.2
[~2021-04-01 06:11] MED LIST changes: +DEXAMETHASONE SOD PHOSPHATE 4 MG/ML 1 ML VIAL IV ONE; -LACTATED RINGERS 1,000 ML IV SCH; +LIDOCAINE 1% (10MG/ML) FOR IV START INTRADERMA PRN; +ONDANSETRON 4 MG/2 ML VIAL IVP ONE; -SODIUM CHLORIDE 0.9% 1,000 ML IV SCH
[2021-04-01] MEDS ORDERED: HYDROmorphone 0.5 MG/0.5 ML SYRINGE IVP PRN (07:00)
[2021-04-01] MEDS: LACTATED RINGERS 1,000 ML IV SCH (07:06)
[2021-04-01 07:16] LABS: Anisocytosis Moderate; Basophils % (A) 1 %; Eosinophils % (A) 1 %; HCT 25.6 % (39.0-53.0); HGB 8.4 gm/dL (13.0-17.5); Hypochromasia Moderate; Lymphocytes # (A) 0.7 k/uL (1.0-4.8); Lymphocytes % (A) 12 %; MCH 30.2 pg (25.0-35.0); MCHC 32.7 g/dL (31.0-37.0); MCV 92.4 fL (80.0-100.0); Macrocytosis Slight; Mean Platelet Volume 9.1; Monocytes # (A) 0.4 k/uL (0-1.0); Monocytes % (A) 7 %; Neutrophils # (A) 4.5 k/uL (1.3-7.7); Neutrophils % (A) 79 %; RBC 2.77 m/uL (4.30-5.90); RDW 21.7 % (11.5-15.5); WBC 5.7 k/uL (3.8-10.6)
[2021-04-01 07:25] LABS: Potassium 4.9 mmol/L (3.5-5.1)
[2021-04-01 07:31] LABS: Platelet Count 223 k/uL (150-450)
[2021-04-01] MEDS ORDERED: ROCURONIUM 10 MG/ML (5 ML VIAL) IV ONE (07:39)
[2021-04-01] MEDS ORDERED: ETOMIDATE 2 MG/ML 10 ML VIAL ONE (07:39)
[2021-04-01] MEDS ORDERED: fentaNYL (PF) 50 MCG/ML 2 ML AMP ONE (07:39)
[2021-04-01] MEDS ORDERED: LIDOCAINE 1% INJ 10MG/ML (20 ML MDV) ONE (07:39)
[2021-04-01] MEDS ORDERED: NEOSTIGMINE 1 MG/ML 10 ML VIAL ONE (07:39)
[2021-04-01] MEDS ORDERED: SUCCINYLCHOLINE CHLORIDE 100 MG/5 ML SYR IV ONE (07:39)
[2021-04-01] MEDS ORDERED: GLYCOPYRROLATE 0.2 MG/ML 2 ML VIAL ONE (07:39)
[2021-04-01] MEDS ORDERED: IOPAMIDOL-370 50ML BTL IRRIGATION ONE ×2 (08:06)
[2021-04-01] MEDS ORDERED: HYDROcodone/APAP 5-325MG 1 EACH TAB PO PRN (09:49)
[2021-04-01] MEDS ORDERED: ACETAMINOPHEN TAB 325 MG TAB PO PRN (09:50)
[2021-04-01] MEDS ORDERED: NITROGLYCERIN SL TABS 0.4 MG TAB SUBLINGUAL PRN (09:50)
--- NOTE | 2021-04-01 10:25 | P.OP ---
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 He received induction intravesical BCG followed by maintenance BCG. 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 Resection in October 2020 revealed high-grade urothelial carcinoma with superficial lamina propria invasion. Reresection in November 2020 showed possible CIS. He subsequently developed recurrent UTIs. He received a single instillation of gemcitabine on 03/12/2021. He was subsequently hospitalized with weakness and malaise. He was found to be anemic, and also to have bilateral hydronephrosis. Operative Findings: Cystoscopy ureteroscopy shows bladder neck occlusion. Contrast injected within the prostatic urethra fails to opacify the bladder, but reflexes into both distal ureters, which are dilated. Description of Procedure: The patient was taken to the operating room and placed in the dorsolithotomy position, with his legs supported in Stefan stirrups. The external genitalia was prepped and draped sterilely. The 30 lens was used to introduce the 22-Cypriot Stortz cystoscopic sheath through the urethra under direct vision. The anterior urethra appeared normal. The prostatic fossa was open, and no urothelial changes were seen within the prostatic urethra. However, the vesical neck was occluded. In the anticipated area of the vesical neck was a large ulcerated area. It could not be determined whether this was inflammatory or necrotic. The cystoscope was removed, and the 16-Cypriot flexible cystoscope was passed up to that point. However, a lumen and into the bladder could not be identified. A 0.035 inch Glidewire was passed through the cystoscope and the ulcerated area was gently probed. However, the Glidewire could not be advanced into the bladder. Contrast was then injected through the cystoscope and fluoroscopy was performed. The cavity of the prostatic urethra filled with contrast. The bladder failed to opacify, but both distal ureters opacified. The distal ureters appeared to be dilated bilaterally. The cystoscope was removed and the procedure was terminated. The patient tolerated the procedure well was taken to the recovery room in stable condition.
--- NOTE | 2021-04-01 11:25 | FL ---
Fluoroscopy HISTORY: Hydronephrosis 19 seconds fluoroscopy time supplied to the referring clinician. 3 intraoperative C-arm images docum ent the procedure. See dictated report from urology.
[2021-04-01] MEDS ORDERED: SODIUM CHLORIDE 0.9% 1,000 ML IV ONE (14:30)
[2021-04-01] MEDS ORDERED: fentaNYL (PF) 50 MCG/ML 2 ML AMP IV ONE (14:42)
[2021-04-01] MEDS: LIDOCAINE 1% INJ 10MG/ML (20 ML MDV) SQ ONE ×2 (14:44→14:57)
[2021-04-01] MEDS ORDERED: IOPAMIDOL-250 50ML BTL IV ONE (15:05)
--- NOTE | 2021-04-01 16:57 | IR ---
EXAMINATION TYPE: IR nephrostomy bilateral, US guide intraoperative bilateral DATE OF EXAM: 04/01/2021 COMPARISON: CT 03/17/2021 HISTORY: Hydronephrosis bilateral, ureteral obstruction PROCEDURE: Maximal barrier technique was utilized. The skin overlying the left kidney was localized using ultrasound and the overlying skin prepped and draped. Ultrasound was utilized with sterile yusuf hnique. Lidocaine used for local anesthesia. Skin manjula was made with a scalpel. Access was gained u nder ultrasound with a 21-gauge needle to the mid pole right kidney. A 0.018 inch wire was advanced. The access site was dilated and subsequently an 8.5French catheter was advanced over wire in the re nal pelvis and fixed in place. Urine returned in the hub of the catheter. Gentle hand-injection of contrast, some spot images obtained verifying placement. Using similar technique access was gained to the left kidney under direct ultrasound guidance, ultras ound used with sterile technique. Access gained to the upper pole the left kidney posterior calyx wit h a 21-gauge needle, 0.018 inch wire was advanced, access site was upsized with a 0.038 inch wire, ac cess site was dilated, 8.5 gauge catheter advanced over wire and fixed in place. Gentle injection of contrast material performed a spot images verified placement. Urine returned in the hub of the cathet er. Catheters fixed to the skin with 2-0 silk and a sterile dressing was placed. The patient remaine d in stable condition without complication. The patient was discharged to observation. Catheter was attached to gravity drainage. 31 minutes of sedation time, patient was monitored by an independent trained observer. 2.7 minutes fl uoroscopy time. 39 intraoperative images documents the procedure. IMPRESSION: STATUS POST bilateral 8.5 ERITREAN NEPHROSTOMY TUBES PLACEMENT WITH ULTRASOUND AND FLUOROSC OPIC GUIDANCE. THIS PROCEDURE WAS PERFORMED BY THE UNDERSIGNED.
[2021-04-01] MEDS: CEPHALEXIN 250 MG CAP PO SCH ×2 (17:31→23:21)
[2021-04-01] MEDS: carvediloL 12.5 MG TAB PO SCH (17:31)
[2021-04-01] MEDS: DEXTROSE 5%-0.45% NACL 1,000 ML IV SCH (17:32)
[2021-04-01] MEDS: SODIUM BICARBONATE TAB 650 MG TAB PO SCH (20:03)
[2021-04-01 20:07] VITALS: PULSE 60
[2021-04-01] MEDS ORDERED: ATORVASTATIN 20 MG TAB PO SCH (21:00)
[2021-04-02 05:04] VITALS: BP 136/69; RESP 18; TEMP 98.3
[2021-04-02 05:42] LABS: INR 1.2 (<1.2); Partial Thromboplastin Time 23.1 sec (22.0-30.0)
[2021-04-02] MEDS: LACTATED RINGERS 1,000 ML IV SCH (07:08)
[2021-04-02] MEDS: SODIUM BICARBONATE TAB 650 MG TAB PO SCH (08:00)
[2021-04-02] MEDS: CEPHALEXIN 250 MG CAP PO SCH (08:00)
[2021-04-02] MEDS: carvediloL 12.5 MG TAB PO SCH (08:00)
[2021-04-02] MEDS ORDERED: SPIRONOLACTONE 25 MG TAB PO SCH (09:00)
[2021-04-02] MEDS ORDERED: lisinopriL 10 MG TAB PO SCH (09:00)
[2021-04-02] MEDS ORDERED: FERROUS SULFATE 325 MG TAB PO SCH (09:00)
[2021-04-02] MEDS ORDERED: FUROSEMIDE 40 MG TAB PO SCH (09:00)
[2021-04-02 10:44] LABS: Anion Gap 8.3 mmol/L (4.00-12.00); BUN/Creat Ratio 39.5 Ratio (12.00-20.00); Calcium 8.5 mg/dL (8.7-10.3); Carbon Dioxide 22.7 mmol/L (21.6-31.8); Non-African American GFR(CKD) 29.3 (60.0-200.0); Potassium 4.9 mmol/L (3.5-5.5)
[2021-04-02] MEDS: DEXTROSE 5%-0.45% NACL 1,000 ML IV SCH (11:08)
--- NOTE | 2021-04-02 12:06 | P.DS ---
Providers Expected date of discharge: 04/02/21 Attending physician: Dominick Spencer Consults: 04/01/21 09:52 Consult Physician Routine Consulting Provider: Markel Sparks Consult Reason/Comments: Bilateral nephrostomy tube placement Do you want consulting provider notified?: Yes Primary care physician: Jose Carlos Guzman Kut - Discharge Diagnosis(es) (1) Malignant neoplasm of bladder, unspecified Current Visit: No Status: Acute (2) Unspecified hydronephrosis Current Visit: No Status: Acute Hospital Course: On the day of admission, the patient underwent ureteroscopy. The vesical neck was occluded. A urethrogram was obtained, showing contrast within the prostatic urethra. Although no contrast was seen within the bladder, bilateral vesicoureteral reflux was noted. The distal ureters were increased in caliber, and the patient subsequently underwent bilateral nephrostomy tube insertion. He felt better subsequently. Procedures: Cystoscopy, urethrogram, bilateral nephrostomy tube insertion on 04/01/2021. Patient Condition at Discharge: Good Plan - Discharge Summary Discharge Rx Participant: No New Discharge Prescriptions: No Action Atorvastatin Calcium [Lipitor] 20 mg PO HS Lisinopril [Prinivil] 10 mg PO DAILY Tamsulosin [Flomax] 0.4 mg PO DAILY Nitroglycerin Sl Tabs [Nitrostat] 0.4 mg SUBLINGUAL Q5M PRN PRN Reason: Chest Pain Aspirin EC [Ecotrin Low Dose] 81 mg PO DAILY Acetaminophen [Tylenol Arthritis] 650 mg PO DAILY Spironolactone [Aldactone] 12.5 mg PO DAILY #50 tablet Carvedilol [Coreg] 12.5 mg PO BID #180 tablet Furosemide [Lasix] 40 mg PO DAILY Sodium Bicarbonate Tab 650 mg PO BID #60 tab Cephalexin [Keflex] 250 mg PO Q8HR Ferrous Sulfate [Feosol] 325 mg PO DAILY Acetaminophen Tab [Tylenol] 650 mg PO Q6H PRN PRN Reason: Pain Discharge Medication List Atorvastatin Calcium [Lipitor] 20 mg PO HS 05/04/14 [History] Lisinopril [Prinivil] 10 mg PO DAILY 12/14/15 [History] Tamsulosin [Flomax] 0.4 mg PO DAILY 09/25/16 [History] Aspirin EC [Ecotrin Low Dose] 81 mg PO DAILY 04/16/18 [History] Nitroglycerin Sl Tabs [Nitrostat] 0.4 mg SUBLINGUAL Q5M PRN 04/16/18 [History] Acetaminophen [Tylenol Arthritis] 650 mg PO DAILY 05/13/20 [History] Carvedilol [Coreg] 12.5 mg PO BID #180 tablet 05/18/20 [Rx] Spironolactone [Aldactone] 12.5 mg PO DAILY #50 tablet 05/18/20 [Rx] Furosemide [Lasix] 40 mg PO DAILY 03/17/21 [History] Sodium Bicarbonate Tab 650 mg PO BID #60 tab 03/20/21 [Rx] Acetaminophen Tab [Tylenol] 650 mg PO Q6H PRN 03/30/21 [History] Cephalexin [Keflex] 250 mg PO Q8HR 03/30/21 [History] Ferrous Sulfate [Feosol] 325 mg PO DAILY 03/30/21 [History] Follow up Appointment(s)/Referral(s): Dominick Spencer MD [STAFF PHYSICIAN] - 04/09/21 11:00 am Patient Instructions/Handouts: *Surgery [facility] - Cystoscopy Discharge Instructions, Nephrostomy Tube Care (DC) Activity/Diet/Wound Care/Special Instructions: Discharge home with nephrostomy tubes. Diet as tolerated. Activity as tolerated. Drink plenty of fluids. Discharge Disposition: HOME SELF-CARE
== END 2021-04-02 12:56 | disposition home or self-care (01) ==
LOC: OR 06:11 → 5NMEDONC 08:54 → OR 04-02 12:56
PROVIDERS: ATTEND Urology
DX: C67.9 Malignant neoplasm of bladder, unspecified (principal); N13.30 Unspecified hydronephrosis; I12.9 Hypertensive chronic kidney disease with stage 1 through stage 4 chronic kidney disease, or unspecified chronic kidney disease; N18.30 Chronic kidney disease, stage 3 unspecified; I48.91 Unspecified atrial fibrillation; D64.9 Anemia, unspecified; Z87.440 Personal history of urinary (tract) infections; I25.10 Atherosclerotic heart disease of native coronary artery without angina pectoris; M19.90 Unspecified osteoarthritis, unspecified site; Z87.01 Personal history of pneumonia (recurrent); Z87.448 Personal history of other diseases of urinary system; Z98.890 Other specified postprocedural states; Z90.89 Acquired absence of other organs; Z95.5 Presence of coronary angioplasty implant and graft; Z96.652 Presence of left artificial knee joint; Z82.49 Family history of ischemic heart disease and other diseases of the circulatory system; Z82.3 Family history of stroke; Z79.82 Long term (current) use of aspirin; Z79.899 Other long term (current) drug therapy
CPT/HCPCS: 50432; 86900; 86901; 80051; 80048; 82565; 84520; 85025; 85610; 85730; 86850; 74420; 52204; C1769 ×3; C1729 ×2; J1100; J2710; J0690; J2405; J2001; J3010; J0330; J1170; Q9966; Q9967

== ENCOUNTER 2021-04-19 08:56 | Day surgery (SDC) | payer MEDICARE, BC ==
[2021-04-15 11:07] VITALS: BMI 33.0
--- NOTE | 2021-04-19 06:33 | P.GSHP ---
History of Present Illness H&P Date: 04/19/21 Chief Complaint: Bilateral hydronephrosis The patient is an 85-year-old white male diagnosed with T1 grade 3 urothelial carcinoma with carcinoma in situ in September 2012. He received induction intravesical BCG followed by maintenance BCG. 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 Resection in October 2020 revealed high-grade urothelial carcinoma with superficial lamina propria invasion. Reresection in November 2020 showed possible CIS. He subsequently developed recurrent UTIs. He received a single instillation of gemcitabine on 03/12/2021. He was subsequently hospitalized with weakness and malaise. He was found to be anemic, and also to have bilateral hydronephrosis. Cystoscopy showed what appeared to be an occluded vesical neck. A cystogram showed bilateral reflux. Nephrostomy tubes were placed and he now comes for nephrostograms. 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 Anemia. Edema BLE. New hydronephrosis. History of Any Multi-Drug Resistant Organisms: None Reported Past Surgical History: Appendectomy, Heart Catheterization, Heart Catheterization With Stent, Joint Replacement, Pacemaker Additional Past Surgical History / Comment(s): renea nephrostomy tubes placed 04/01/21, 10/03/08 PTCA with stenting of LAD, partial LEFT KNEE REPLACEMENT, BLADDER SCOPE recently. Past Anesthesia/Blood Transfusion Reactions: No Reported Reaction Date of Last Stent Placement:: 10/03/08 Type of Cardiac Device: Permanent Pacemaker Device Placement Date:: 2015 Smoking Status: Former smoker - Past Family History Father Family Medical History: Coronary Artery Disease (CAD), Myocardial Infarction ([place]) Additional Family Medical History / Comment(s): Father at age of 63 from [place]. Mother Family Medical History: CVA/TIA Additional Family Medical History / Comment(s): Mother at age 65 from CVA. Brother(s) Family Medical History: Pulmonary Embolus Additional Family Medical History / Comment(s): Patient had 1 brother that at age 61 from pulmonary embolism. Sister(s) Family Medical History: No Reported History Additional Family Medical History / Comment(s): Patient had 3 sisters and one from back trouble. Daughter(s) Family Medical History: No Reported History Additional Family Medical History / Comment(s): Patient has one daughter with no major medical problems. Son(s) Family Medical History: No Reported History Additional Family Medical History / Comment(s): Patient has one son with no major medical problems. Medications and Allergies Home Medications Medication Instructions Recorded Confirmed Type Atorvastatin Calcium [Lipitor] 20 mg PO HS 05/04/14 04/15/21 History Lisinopril [Prinivil] 10 mg PO DAILY 12/14/15 04/15/21 History Tamsulosin [Flomax] 0.4 mg PO DAILY 09/25/16 04/15/21 History Aspirin EC [Ecotrin Low Dose] 81 mg PO DAILY 04/16/18 04/15/21 History Nitroglycerin Sl Tabs [Nitrostat] 0.4 mg SUBLINGUAL Q5M PRN 04/16/18 04/15/21 History Acetaminophen [Tylenol Arthritis] 650 mg PO DAILY 05/13/20 04/15/21 History Carvedilol [Coreg] 12.5 mg PO BID #180 tablet 05/18/20 04/15/21 Rx Spironolactone [Aldactone] 12.5 mg PO DAILY #50 tablet 05/18/20 04/15/21 Rx Furosemide [Lasix] 40 mg PO DAILY 03/17/21 04/15/21 History Sodium Bicarbonate Tab 650 mg PO BID #60 tab 03/20/21 04/15/21 Rx Acetaminophen Tab [Tylenol] 650 mg PO Q6H PRN 03/30/21 04/15/21 History Ferrous Sulfate [Feosol] 325 mg PO DAILY 03/30/21 04/15/21 History Allergies Allergy/AdvReac Type Severity Reaction Status Date / Time No Known Allergies Allergy Verified 04/15/21 11:01 Surgical - Exam - General well developed, well nourished, no distress - Respiratory normal respiratory effort - Abdomen Abdomen: soft, non tender, no guarding, no rigid, no rebound - Genitourinary normal penis with no external lesions, testicles non-tender - Psychiatric oriented to time, oriented to person, oriented to place, speech is normal, memory intact Assessment and Plan (1) Bilateral hydronephrosis Status: Acute Code(s): N13.30 - UNSPECIFIED HYDRONEPHROSIS SNOMED Code(s): 09455345 Plan: Bilateral nephrostograms to better define lower tract (bladder) anatomy and rule out ureteral obstruction.
[~2021-04-19 08:56] MED LIST changes: -DEXAMETHASONE SOD PHOSPHATE 4 MG/ML 1 ML VIAL IV ONE; +LEVOFLOXACIN 500MG-D5W PMX 500 MG in DEXTROSE/WATER 1 100ML.BAG IVPB SCH; -LIDOCAINE 1% (10MG/ML) FOR IV START INTRADERMA PRN; -ONDANSETRON 4 MG/2 ML VIAL IVP ONE
[2021-04-19] MEDS ORDERED: SODIUM CHLORIDE 0.9% 500 ML 500 ML IV ONE (09:08)
[2021-04-19 09:36] VITALS: TEMP 98
[2021-04-19 10:11] LABS: Calcium 8.6 mg/dL (8.4-10.2); Potassium 4.4 mmol/L (3.5-5.1)
[2021-04-19] MEDS ORDERED: LIDOCAINE 1% INJ 10MG/ML (20 ML MDV) ONE (10:35)
[2021-04-19] MEDS: IOPAMIDOL-250 100ML BTL IV ONE ×2 (11:31→11:48)
[2021-04-19] MEDS ORDERED: fentaNYL (PF) 50 MCG/ML 2 ML AMP ONE (11:33)
[2021-04-19] MEDS ORDERED: fentaNYL (PF) 50 MCG/ML 2 ML AMP IV ONE (11:35)
[2021-04-19] MEDS ORDERED: LIDOCAINE 1% INJ 10MG/ML (20 ML MDV) SQ ONE (11:43)
[2021-04-19 16:27] VITALS: BP 134/60; PULSE 62; RESP 16
--- NOTE | 2021-04-20 09:37 | IR ---
EXAMINATION TYPE: IR nephrostomy tube change DATE OF EXAM: 04/20/2021 COMPARISON: NONE HISTORY: Request for bilateral antegrade nephrostogram with cystogram. Procedure had been discussed with the patient by Dr. Ybarra, risks, benefits, alternatives, were dis cussed and any questions were answered. Informed consent was obtained. The patient was in a semipro ne position prepped and draped on the CVL table in the usual sterile fashion. Contrast was injected a nd the pre-existing bilateral nephrostomy tubes demonstrate bilateral hydronephrosis and hydroureter to level the EGA. Appears to be localized narrowing is at both ureterovesicular junctions of the uret er. The bladder was markedly contracted. The bladder does not distend. Be markedly diminutive in size . Approximately 15 images and 5.9 minutes of fluoroscopy provided. The left nephrostomy tube was cut and exchanged over guidewire for a new 8.5 Stateless nephrostomy tube. IMPRESSION: 1. Bilateral hydronephrosis with hydroureter and suspected stenoses at the ureterovesicular junction. The bladder was markedly contracted and would not distend. 2. Successful nephrostomy tube exchange over guidewire..
== END 2021-04-19 13:19 | disposition home or self-care (01) ==
LOC: OR 08:56
PROVIDERS: ATTEND Urology
DX: N13.30 Unspecified hydronephrosis (principal); I48.91 Unspecified atrial fibrillation; I25.10 Atherosclerotic heart disease of native coronary artery without angina pectoris; E78.5 Hyperlipidemia, unspecified; I12.9 Hypertensive chronic kidney disease with stage 1 through stage 4 chronic kidney disease, or unspecified chronic kidney disease; I50.9 Heart failure, unspecified; M19.90 Unspecified osteoarthritis, unspecified site; Z85.51 Personal history of malignant neoplasm of bladder; Z87.891 Personal history of nicotine dependence; Z79.82 Long term (current) use of aspirin
CPT/HCPCS: 50435; 74425; 80048; C1729; C1769 ×3; J1956; J2001; J3010; Q9966

== ENCOUNTER 2021-04-20 07:58 | Emergency (ER) | payer MEDICARE, BC ==
[2021-04-20 08:08] VITALS: TEMP 97.5
--- NOTE | 2021-04-20 08:23 | ED ---
General Adult HPI - General Chief complaint: Urogenital Stated complaint: post op-bladder problems Time Seen by Provider: 04/20/21 08:09 Source: patient Mode of arrival: ambulatory Limitations: no limitations - History of Present Illness Initial comments: Dictation was produced using [employer] dictation software. please excuse any grammatical, word or spelling errors. Chief Complaint: 85-year-old male presents with leaking nephrostomy equipment History of Present Illness: To 85-year-old male he had bilateral nephrostomy tubes placed exactly 3 weeks ago. States that he has not had any issues until yesterday when he noticed that he had noticed a hole wet spot on his right side. Patient checked his equipment and noticed that he did not take in the valve on the right reservoir. He tight in the valve on the right reservoir and hasn't noticed any leak since. Keep to the emergency department today to have his nephrostomy equipment evaluated. Patient has no other complaints. The ROS documented in this emergency department record has been reviewed and confirmed by me. Those systems with pertinent positive or negative responses have been documented in the HPI. All other systems are other negative and/or noncontributory. PHYSICAL EXAM: General Impression: Alert and oriented x3, not in acute distress HEENT: Normocephalic atraumatic, extra-ocular movements intact, pupils equal and reactive to light bilaterally, mucous membranes moist. Cardiovascular: Heart regular rate and rhythm Chest: Able to complete full sentences, no retractions, no tachypnea Abdomen: abdomen soft, non-tender, non-distended, no organomegaly Musculoskeletal: Pulses present and equal in all extremities, no peripheral edema Motor: no focal deficits noted Neurological: CN II-XII grossly intact, no focal motor or sensory deficits noted Skin: Intact with no visualized rashes, nephrostomy tubes coming from the bilateral flank areas, evaluation of the right nephrostomy equipment does not show any leakage of any fluids. His back appears to be dry Psych: Normal affect and mood ED course: 85-year-old male presents to the emergency department for potential leaking nephrostomy equipment. Vital signs upon arrival are within acceptable limits. Patient's well-appearing. Examination of his nephrostomy equipment does not show any leaks. We did speak with interventional radiology. According to IR team that interventional radiologist parents performed a left-sided nephrostomy tube replacement yesterday. He allegedly did not like the positioning on the right- sided nephrostomy tube. Dr. Cui wanted to replace the right-sided nephrostomy tube. Patient was taken to the ER suite by IR team for right-sided nephrostomy tube replacement. - Related Data Home Medications Medication Instructions Recorded Confirmed Atorvastatin Calcium [Lipitor] 20 mg PO HS 05/04/14 04/20/21 Lisinopril [Prinivil] 10 mg PO DAILY 12/14/15 04/20/21 Tamsulosin [Flomax] 0.4 mg PO DAILY 09/25/16 04/20/21 Aspirin EC [Ecotrin Low Dose] 81 mg PO DAILY 04/16/18 04/20/21 Nitroglycerin Sl Tabs [Nitrostat] 0.4 mg SL Q5M PRN 04/16/18 04/20/21 Acetaminophen [Tylenol Arthritis] 650 mg PO DAILY 05/13/20 04/20/21 Furosemide [Lasix] 40 mg PO DAILY 03/17/21 04/20/21 Acetaminophen Tab [Tylenol] 650 mg PO Q6H PRN 03/30/21 04/20/21 Ferrous Sulfate [Feosol] 325 mg PO DAILY 03/30/21 04/20/21 Previous Rx's Medication Instructions Recorded Carvedilol [Coreg] 12.5 mg PO BID #180 tablet 05/18/20 Sodium Bicarbonate Tab 650 mg PO BID #60 tab 03/20/21 Allergies Allergy/AdvReac Type Severity Reaction Status Date / Time No Known Allergies Allergy Verified 04/20/21 10:20 Review of Systems ROS Statement: Those systems with pertinent positive or pertinent negative responses have been documented in the HPI. ROS Other: All systems not noted in ROS Statement are negative. 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 Anemia. Edema BLE. New hydronephrosis. History of Any Multi-Drug Resistant Organisms: None Reported Past Surgical History: Appendectomy, Heart Catheterization, Heart Catheterization With Stent, Joint Replacement, Pacemaker Additional Past Surgical History / Comment(s): renea nephrostomy tubes placed 04/01/21, 10/03/08 PTCA with stenting of LAD, partial LEFT KNEE REPLACEMENT, BLADDER SCOPE recently. Past Anesthesia/Blood Transfusion Reactions: No Reported Reaction Date of Last Stent Placement:: 10/03/08 Type of Cardiac Device: Permanent Pacemaker Device Placement Date:: 2015 Past Psychological History: No Psychological Hx Reported Smoking Status: Former smoker Past Alcohol Use History: Occasional Past Drug Use History: None Reported - Past Family History Father Family Medical History: Coronary Artery Disease (CAD), Myocardial Infarction ([place]) Additional Family Medical History / Comment(s): Father at age of 63 from [place]. Mother Family Medical History: CVA/TIA Additional Family Medical History / Comment(s): Mother at age 65 from CVA. Brother(s) Family Medical History: Pulmonary Embolus Additional Family Medical History / Comment(s): Patient had 1 brother that at age 61 from pulmonary embolism. Sister(s) Family Medical History: No Reported History Additional Family Medical History / Comment(s): Patient had 3 sisters and one from back trouble. Daughter(s) Family Medical History: No Reported History Additional Family Medical History / Comment(s): Patient has one daughter with no major medical problems. Son(s) Family Medical History: No Reported History Additional Family Medical History / Comment(s): Patient has one son with no major medical problems. General Exam Limitations: no limitations Course Vital Signs 04/20/21 08:05 Temperature 97.5 F L Pulse Rate 59 L Respiratory 16 Rate Blood Pressure 147/79 O2 Sat by Pulse 98 Oximetry Disposition Clinical Impression: Nephrostomy complication Disposition: HOME SELF-CARE Condition: Good Instructions (If sedation given, give patient instructions): Nephrostomy Tube Care (ED) Is patient prescribed a controlled substance at d/c from ED?: No Referrals: Jose Carlos Hicks MD [Primary Care Provider] - 1-2 days
[2021-04-20] MEDS ORDERED: LEVOFLOXACIN 500MG-D5W PMX 500 MG in DEXTROSE/WATER 1 100ML.BAG IVPB STA (10:39)
[2021-04-20] MEDS ORDERED: LIDOCAINE 1% INJ 10MG/ML (20 ML MDV) ONE (10:42)
[2021-04-20] MEDS ORDERED: IV FLUID CONTINUATION 1,000 ML IV ONE (11:05)
[2021-04-20] MEDS ORDERED: SODIUM CHLORIDE 0.9% 500 ML 500 ML IV ONE (11:05)
[2021-04-20] MEDS: fentaNYL (PF) 50 MCG/ML 2 ML AMP IV ONE ×2 (11:14→11:29)
[2021-04-20] MEDS ORDERED: fentaNYL (PF) 50 MCG/ML 2 ML AMP ONE (11:17)
[2021-04-20] MEDS ORDERED: LIDOCAINE 1% INJ 10MG/ML (20 ML MDV) SQ ONE (11:30)
[2021-04-20] MEDS ORDERED: IOPAMIDOL-250 100ML BTL IV ONE (11:32)
[2021-04-20 12:34] VITALS: RESP 16
--- NOTE | 2021-04-20 12:41 | IR ---
EXAMINATION TYPE: IR nephrostomy tube change DATE OF EXAM: 04/20/2021 COMPARISON: NONE HISTORY: Leaking around right pre-existing nephrostomy tube placed 04/01/2021 Procedure had been discussed with the patient risks, benefits, alternatives, were discussed and any q uestions were answered. Informed consent was obtained. The patient was in a semiprone position prep ped and draped on the OR table in the usual sterile fashion. Contrast was injected through the pre-ex isting tube and the tube appear to be slightly pulled back partially within the collecting system. Ca theter was cut and an 0.035 guidewire was placed through the catheter and into the proximal ureter. N ew 8.5 Montenegrin catheter was placed into the renal pelvis and locked into position. Repeat contrast inj ection demonstrated ideal placement. IMPRESSION: 1. Successful right-sided percutaneous nephrostomy tube exchange over guidewire.
[2021-04-20 16:28] VITALS: BP 143/83; PULSE 64
== END 2021-04-20 13:31 | disposition home or self-care (01) ==
LOC: EC 07:58
DX: T83.092A Other mechanical complication of nephrostomy catheter, initial encounter (principal); I13.0 Hypertensive heart and chronic kidney disease with heart failure and stage 1 through stage 4 chronic kidney disease, or unspecified chronic kidney disease; I50.9 Heart failure, unspecified; N18.30 Chronic kidney disease, stage 3 unspecified; I48.91 Unspecified atrial fibrillation; I25.10 Atherosclerotic heart disease of native coronary artery without angina pectoris; E78.5 Hyperlipidemia, unspecified; M19.90 Unspecified osteoarthritis, unspecified site; Z79.82 Long term (current) use of aspirin; Z79.899 Other long term (current) drug therapy; Z87.891 Personal history of nicotine dependence; Z82.49 Family history of ischemic heart disease and other diseases of the circulatory system
CPT/HCPCS: 99283; 50435; C1729; C1769 ×3; J1956; J2001; J3010; Q9966

== ENCOUNTER 2021-05-18 10:54 | Day surgery (SDC) | payer MEDICARE, BC ==
[2021-05-18] MEDS ORDERED: LEVOFLOXACIN 500MG-D5W PMX 500 MG in DEXTROSE/WATER 1 100ML.BAG IVPB STA (11:37)
[2021-05-18] MEDS ORDERED: SODIUM CHLORIDE 0.9% 500 ML 500 ML IV ONE (11:55)
[2021-05-18] MEDS ORDERED: fentaNYL (PF) 50 MCG/ML 2 ML AMP IVP ONE (13:13)
[2021-05-18] MEDS ORDERED: LIDOCAINE 1% INJ 10MG/ML (20 ML MDV) SQ ONE (13:14)
[2021-05-18] MEDS ORDERED: IOPAMIDOL-250 100ML BTL INTRAARTER ONE (13:20)
--- NOTE | 2021-05-18 16:27 | IR ---
Nephrostomy tube exchange HISTORY: Malfunctioning nephrostomy tube, tube leaking Following informed consent, the patient's indwelling tube was prepped and draped in a sterile fashion . Lidocaine was used for local anesthesia. General hand injection of contrast material was performed under fluoroscopic observation. Based on the findings the catheter was cut and subsequently exchanged over a 0.035 inch angled Glidewire and fixed in place. 2-0 silk was used to fix the catheter in plac e. Gentle hand-injection of contrast verified placement within the renal pelvis. Catheter was azure principal solution specialist d to gravity drainage. There is no immediate competition. Patient remained in stable condition. Indwelling tube is noted to have a leak, as perforated along its course. 1.8 minutes fluoroscopy time, 176 fluoroscopy images document the procedure IMPRESSION: Status post 8.5 Maltese tube replacement, exchange of the left nephrostomy tube, this proc edure performed by the undersigned.
[2021-05-18 18:27] VITALS: PULSE 60
[2021-05-18 18:28] VITALS: RESP 16
[2021-05-18 18:29] VITALS: BP 121/58
== END 2021-05-18 14:50 | disposition home or self-care (01) ==
LOC: CATHCVL 10:54
PROVIDERS: ATTEND Radiology Diagnostic Radiology
DX: N99.522 Malfunction of incontinent external stoma of urinary tract (principal)
CPT/HCPCS: 50435; C1769 ×2; J1956; J2001; J3010; Q9966

== ENCOUNTER 2021-05-25 13:34 | Day surgery (SDC) | payer MEDICARE, BC ==
[2021-05-25 15:20] VITALS: BP 163/70; PULSE 63; RESP 18; TEMP 97.6
== END 2021-05-25 14:30 | disposition home or self-care (01) ==
LOC: RADPROMAIN 13:34
PROVIDERS: ATTEND Radiology Diagnostic Radiology
DX: Z48.03 Encounter for change or removal of drains (principal)
CPT/HCPCS: 99213

== ENCOUNTER 2021-06-01 12:25 | Day surgery (SDC) | payer MEDICARE, BC ==
[2021-06-01 12:58] VITALS: BP 154/69; PULSE 60; RESP 16; TEMP 98.1
== END 2021-06-01 13:27 | disposition home or self-care (01) ==
LOC: RADPROMAIN 12:25
PROVIDERS: ATTEND Radiology Diagnostic Radiology
DX: Z43.6 Encounter for attention to other artificial openings of urinary tract (principal)
CPT/HCPCS: 99213

== ENCOUNTER 2021-06-07 10:03 | Day surgery (SDC) | payer MEDICARE, BC ==
[2021-06-07 11:39] VITALS: BP 123/74; PULSE 76; RESP 18; TEMP 98.1
== END 2021-06-07 11:40 | disposition home or self-care (01) ==
LOC: RADPROMAIN 10:03
PROVIDERS: ATTEND Radiology Diagnostic Radiology
DX: Z48.01 Encounter for change or removal of surgical wound dressing (principal)
CPT/HCPCS: 99213

== ENCOUNTER → 2021-06-15 | Day surgery (SDC) | payer MEDICARE, BC ==
[2021-06-15 15:30] VITALS: BP 155/66; PULSE 53; RESP 16; TEMP 97.7
== END ==
LOC: RADPROMAIN 14:57
PROVIDERS: ATTEND Radiology Diagnostic Radiology
DX: Z48.01 Encounter for change or removal of surgical wound dressing (principal)
CPT/HCPCS: 99213

== ENCOUNTER 2021-06-22 15:19 | Day surgery (SDC) | payer MEDICARE, BC ==
[2021-06-22 16:04] VITALS: BP 135/69; PULSE 60; RESP 16; TEMP 97.3
== END 2021-06-22 16:07 | disposition home or self-care (01) ==
LOC: RADPROMAIN 15:19
PROVIDERS: ATTEND Radiology Diagnostic Radiology
DX: Z48.01 Encounter for change or removal of surgical wound dressing (principal)
CPT/HCPCS: 99213

== ENCOUNTER 2021-07-01 10:05 | Day surgery (SDC) | payer MEDICARE, BC ==
[2021-07-01 11:00] VITALS: BP 148/69; PULSE 61; RESP 16; TEMP 97.7
== END 2021-07-01 11:02 | disposition home or self-care (01) ==
LOC: RADPROMAIN 10:05
PROVIDERS: ATTEND Radiology Diagnostic Radiology
DX: Z48.01 Encounter for change or removal of surgical wound dressing (principal)
CPT/HCPCS: 99213

== ENCOUNTER 2021-07-08 15:29 | Day surgery (SDC) | payer MEDICARE, BC ==
[2021-07-08 16:22] VITALS: BP 138/62; PULSE 60; RESP 16; TEMP 97.9
== END 2021-07-08 16:15 | disposition home or self-care (01) ==
LOC: RADPROMAIN 15:29
PROVIDERS: ATTEND Radiology Diagnostic Radiology
DX: Z43.6 Encounter for attention to other artificial openings of urinary tract (principal)
CPT/HCPCS: 99213

== ENCOUNTER 2021-07-19 09:24 | Day surgery (SDC) | payer MEDICARE, BC ==
[2021-07-15 15:19] VITALS: BMI 30.3
--- NOTE | 2021-07-19 07:37 | P.GSHP ---
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 He received induction intravesical BCG followed by maintenance BCG. 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 Resection in October 2020 revealed high-grade urothelial carcinoma with superficial lamina propria invasion. Reresection in November 2020 showed possible CIS. He subsequently developed recurrent UTIs. He received a single instillation of gemcitabine on 03/12/2021. He was subsequently hospitalized with weakness and malaise. He was found to be anemic, and also to have bilateral hydronephrosis. Cystoscopy showed what appeared to be an occluded vesical neck. A cystogram showed bilateral reflux. Nephrostomy tubes were placed and he now comes for nephrostomy tube change. 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 Anemia. Edema BLE. New hydronephrosis. History of Any Multi-Drug Resistant Organisms: None Reported Past Surgical History: Appendectomy, Heart Catheterization, Heart Catheterization With Stent, Joint Replacement, Pacemaker Additional Past Surgical History / Comment(s): renea nephrostomy tubes placed 04/01/21, 10/03/08 PTCA with stenting of LAD, partial LEFT KNEE REPLACEMENT, BLADDER SCOPE recently. Past Anesthesia/Blood Transfusion Reactions: No Reported Reaction Date of Last Stent Placement:: 10/03/08 Type of Cardiac Device: Permanent Pacemaker Device Placement Date:: 2015 Smoking Status: Former smoker - Past Family History Father Family Medical History: Coronary Artery Disease (CAD), Myocardial Infarction ([place]) Additional Family Medical History / Comment(s): Father at age of 63 from [place]. Mother Family Medical History: CVA/TIA Additional Family Medical History / Comment(s): Mother at age 65 from CVA. Brother(s) Family Medical History: Pulmonary Embolus Additional Family Medical History / Comment(s): Patient had 1 brother that at age 61 from pulmonary embolism. Sister(s) Family Medical History: No Reported History Additional Family Medical History / Comment(s): Patient had 3 sisters and one from back trouble. Daughter(s) Family Medical History: No Reported History Additional Family Medical History / Comment(s): Patient has one daughter with no major medical problems. Son(s) Family Medical History: No Reported History Additional Family Medical History / Comment(s): Patient has one son with no major medical problems. Medications and Allergies Home Medications Medication Instructions Recorded Confirmed Type Atorvastatin Calcium [Lipitor] 20 mg PO HS 05/04/14 07/15/21 History Lisinopril [Prinivil] 10 mg PO DAILY 12/14/15 07/15/21 History Tamsulosin [Flomax] 0.4 mg PO HS 09/25/16 07/15/21 History Aspirin EC [Ecotrin Low Dose] 81 mg PO DAILY 04/16/18 07/15/21 History Nitroglycerin Sl Tabs [Nitrostat] 0.4 mg SL Q5M PRN 04/16/18 07/15/21 History Carvedilol [Coreg] 12.5 mg PO BID #180 tablet 05/18/20 07/15/21 Rx Furosemide [Lasix] 40 mg PO DAILY 03/17/21 07/15/21 History Acetaminophen Tab [Tylenol] 650 mg PO Q6H PRN 03/30/21 07/15/21 History Ferrous Sulfate [Feosol] 325 mg PO DAILY 03/30/21 07/15/21 History Allergies Allergy/AdvReac Type Severity Reaction Status Date / Time No Known Allergies Allergy Verified 07/15/21 15:09 Surgical - Exam - General well developed, well nourished, no distress - Respiratory normal respiratory effort - Abdomen Abdomen: soft, non tender, no guarding, no rigid, no rebound - Psychiatric oriented to time, oriented to person, oriented to place, speech is normal, memory intact Assessment and Plan (1) Bilateral hydronephrosis Status: Acute Code(s): N13.30 - UNSPECIFIED HYDRONEPHROSIS SNOMED Code(s): 52921691 Plan: Bilateral nephrostomy tube change. The patient is aware of potential risks, which include infection and loss of access.
[~2021-07-19 09:24] MED LIST changes: +LEVOFLOXACIN 500MG-D5W PMX 500 MG in DEXTROSE/WATER 1 100ML.BAG IVPB PRN; -LEVOFLOXACIN 500MG-D5W PMX 500 MG in DEXTROSE/WATER 1 100ML.BAG IVPB SCH
[2021-07-19] MEDS ORDERED: SODIUM CHLORIDE 0.9% 500 ML 500 ML IV ONE (10:05)
[2021-07-19 10:15] VITALS: PULSE 60; TEMP 97.2
[2021-07-19 10:21] LABS: Anisocytosis Slight; Basophils % (A) 0 %; Eosinophils # (A) 0.1 k/uL (0-0.7); Eosinophils % (A) 2 %; HCT 29.7 % (39.0-53.0); Hypochromasia Moderate; Lymphocytes # (A) 0.8 k/uL (1.0-4.8); Lymphocytes % (A) 14 %; MCH 27.6 pg (25.0-35.0); MCHC 30.4 g/dL (31.0-37.0); MCV 90.7 fL (80.0-100.0); Mean Platelet Volume 9.3; Monocytes # (A) 0.3 k/uL (0-1.0); Monocytes % (A) 6 %; Neutrophils # (A) 4.4 k/uL (1.3-7.7); Neutrophils % (A) 76 %; Platelet Count 159 k/uL (150-450); RBC 3.28 m/uL (4.30-5.90); RDW 16.6 % (11.5-15.5); WBC 5.8 k/uL (3.8-10.6)
[2021-07-19 10:38] LABS: Calcium 9.5 mg/dL (8.4-10.2); Potassium 5.2 mmol/L (3.5-5.1)
[2021-07-19] MEDS: LIDOCAINE 1% INJ 10MG/ML (20 ML MDV) SQ ONE ×2 (11:26→11:31)
[2021-07-19] MEDS ORDERED: IOPAMIDOL-370 50ML BTL INJ ONE (11:27)
[2021-07-19 13:58] VITALS: BP 145/63; RESP 16
--- NOTE | 2021-07-19 15:19 | IR ---
Nephrostomy tube exchange bilateral HISTORY: Bilateral nephrostomy tubes for routine change Maximal barrier technique was utilized. Patient's indwelling tubes were prepped and draped in a steri le fashion. Lidocaine was used for local anesthesia about the tubes. Gentle hand injection performed into the tubes under fluoroscopic observation. The left tube was cut and exchanged over a 0.035 inch angled Glidewire for a similar 8.5 Turkish nephr ostomy tube and fixed in place. Tube was attached to gravity drainage. No complication. Using similar technique right tube was cut and exchanged over the wire for similar tube, 0.035 inch a ngled Glidewire utilized, 8.[address] Images were obtained verifying placement. P atient remains stable condition. No immediate application. 7.2 minutes fluoroscopy time, 66 intraoperative images document the procedure IMPRESSION: Status post bilateral nephrostomy tube exchange, this procedure performed by the sonu krause.
== END 2021-07-19 12:37 | disposition home or self-care (01) ==
LOC: OR 09:24
PROVIDERS: ATTEND Radiology Diagnostic Radiology
DX: Z46.6 Encounter for fitting and adjustment of urinary device (principal); N13.30 Unspecified hydronephrosis; I48.91 Unspecified atrial fibrillation; I25.10 Atherosclerotic heart disease of native coronary artery without angina pectoris; I11.0 Hypertensive heart disease with heart failure; I50.9 Heart failure, unspecified; I13.0 Hypertensive heart and chronic kidney disease with heart failure and stage 1 through stage 4 chronic kidney disease, or unspecified chronic kidney disease; N18.30 Chronic kidney disease, stage 3 unspecified; D63.1 Anemia in chronic kidney disease; M19.90 Unspecified osteoarthritis, unspecified site; Z87.01 Personal history of pneumonia (recurrent); E78.5 Hyperlipidemia, unspecified; Z85.51 Personal history of malignant neoplasm of bladder; G51.0 Bell's palsy; Z95.5 Presence of coronary angioplasty implant and graft; Z95.0 Presence of cardiac pacemaker; Z96.652 Presence of left artificial knee joint; Z98.890 Other specified postprocedural states; Z87.891 Personal history of nicotine dependence; Z82.49 Family history of ischemic heart disease and other diseases of the circulatory system; Z82.3 Family history of stroke; Z79.82 Long term (current) use of aspirin; Z79.899 Other long term (current) drug therapy
CPT/HCPCS: 75984; 80048; 85025; 87635; 50435; C1729; C1769 ×2; J1956; J2001; Q9967

== ENCOUNTER 2021-07-28 15:32 | Day surgery (SDC) | payer MEDICARE, BC ==
[2021-07-28 16:21] VITALS: BP 133/71; PULSE 56; RESP 16; TEMP 97.5
== END 2021-07-28 16:23 | disposition home or self-care (01) ==
LOC: RADPROMAIN 15:32
PROVIDERS: ATTEND Radiology Diagnostic Radiology
DX: Z48.01 Encounter for change or removal of surgical wound dressing (principal)
CPT/HCPCS: 99213

== ENCOUNTER 2021-08-05 15:16 | Day surgery (SDC) | payer MEDICARE, BC ==
[2021-08-05 15:57] VITALS: BP 153/70; PULSE 60; RESP 16; TEMP 97.4
== END 2021-08-05 16:00 | disposition home or self-care (01) ==
LOC: RADPROMAIN 15:16
PROVIDERS: ATTEND Radiology Diagnostic Radiology
DX: Z48.01 Encounter for change or removal of surgical wound dressing (principal)
CPT/HCPCS: 99213

== ENCOUNTER 2021-08-16 15:05 | Day surgery (SDC) | payer MEDICARE, BC ==
[2021-08-16 16:00] VITALS: BP 153/67; PULSE 60; RESP 16; TEMP 97.4
== END 2021-08-16 15:55 | disposition home or self-care (01) ==
LOC: RADPROMAIN 15:05
PROVIDERS: ATTEND Radiology Diagnostic Radiology
DX: Z43.6 Encounter for attention to other artificial openings of urinary tract (principal)
CPT/HCPCS: 99213

== ENCOUNTER → 2021-08-24 | Day surgery (SDC) | payer MEDICARE, BC ==
[2021-08-24 09:59] VITALS: BP 129/72; PULSE 74; RESP 18; TEMP 98.3
== END ==
LOC: RADPROMAIN 09:11
PROVIDERS: ATTEND Radiology Diagnostic Radiology
DX: Z48.01 Encounter for change or removal of surgical wound dressing (principal)
CPT/HCPCS: 99213

== ENCOUNTER 2021-08-31 14:12 | Day surgery (SDC) | payer MEDICARE, BC ==
[2021-08-31 15:13] VITALS: BP 124/68; PULSE 72; RESP 16; TEMP 98
== END 2021-08-31 15:13 | disposition home or self-care (01) ==
LOC: RADPROMAIN 14:12
PROVIDERS: ATTEND Radiology Diagnostic Radiology
DX: Z53.20 Procedure and treatment not carried out because of patient's decision for unspecified reasons (principal)
CPT/HCPCS: 99213

== ENCOUNTER → 2021-08-31 | Outpatient (CLI) | payer MEDICARE, BC ==
--- NOTE | 2021-08-31 16:12 | CT ---
EXAMINATION TYPE: CT abdomen pelvis wo con DATE OF EXAM: 08/31/2021 COMPARISON: 03/17/2021 INDICATION: bladder mass DLP: 797.6 mGycm, Automated exposure control for dose reduction was used. CONTRAST: 0 mL of Isovue 300. Study performed without Oral Contrast TECHNIQUE: Axial images were obtained from above the diaphragm to the pubic rami in the axial plane a t 5 mm thick sections. Reconstructed images are reviewed on the computer in the coronal plane. FINDINGS: Limited CT sections are obtained the lung bases. The lung bases are clear. There is marked cardiome nicki. A large pericardial effusion is present. CT ABDOMEN: Liver: Normal Spleen: Normal Pancreas: Normal Adrenal glands: The adrenal glands are normal. Gallbladder: Normal Kidneys: There is a 2.6 cm slightly hyperdense heterogenous area in the superior right kidney, presen t previously. Bilateral nephrostomy tubes are present. No hydronephrosis is present. There is some le ft hydroureter. This extends to the lower pelvis. Cysts are present in the bilateral kidneys. Delaye d images were obtained through the kidneys, which remain unremarkable. Aorta: Vascular calcification is within the aorta. Inferior vena cava: Normal. CT PELVIS: Loops of bowel within the abdomen and pelvis are normal. Scattered diverticula are present within the sigmoid colon. Studies without oral contrast in bowel evaluation. Appendix: Not visualized. No suspicious dilated tubular structure or inflammatory change is evident. Urinary bladder: Not visualized. Genitourinary structures: Prostate appears normal Osseous structures: No suspicious lytic or sclerotic lesions are evident. IMPRESSIONS: 1. Marked cardiomegaly. A large pericardial effusion is present. 2. Bilateral nephrostomy tubes. 3. Renal cyst. 4. Hyperdense mass superior right kidney, present previously. 5. Moderate left hydroureter, present previously
== END | disposition home or self-care (01) ==
LOC: RADCTMAIN 14:09
PROVIDERS: ATTEND Radiology Radiation Oncology
DX: N28.1 Cyst of kidney, acquired (principal); I51.7 Cardiomegaly; I31.3 Pericardial effusion (noninflammatory); N13.4 Hydroureter; Z93.6 Other artificial openings of urinary tract status
CPT/HCPCS: 74176

== ENCOUNTER 2021-10-18 09:30 | Day surgery (SDC) | payer MEDICARE, BC ==
--- NOTE | 2021-09-22 16:45 | P.GSHP ---
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 He received induction intravesical BCG followed by maintenance BCG. 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 Resection in October 2020 revealed high-grade urothelial carcinoma with superficial lamina propria invasion. Reresection in November 2020 showed possible CIS. He subsequently developed recurrent UTIs. He received a single instillation of gemcitabine on 03/12/2021. He was subsequently hospitalized with weakness and malaise. He was found to be anemic, and also to have bilateral hydronephrosis. Cystoscopy showed what appeared to be an occluded vesical neck. A cystogram showed bilateral reflux. Nephrostomy tubes were placed and he now comes for nephrostomy tube change. A recent CT scan shows no obvious evidence of malignancy. 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 Anemia. Edema BLE. New hydronephrosis. History of Any Multi-Drug Resistant Organisms: None Reported Past Surgical History: Appendectomy, Heart Catheterization, Heart Catheterization With Stent, Joint Replacement, Pacemaker Additional Past Surgical History / Comment(s): renea nephrostomy tubes placed 04/01/21, 10/03/08 PTCA with stenting of LAD, partial LEFT KNEE REPLACEMENT, BLADDER SCOPE recently. Past Anesthesia/Blood Transfusion Reactions: No Reported Reaction Date of Last Stent Placement:: 10/03/08 Type of Cardiac Device: Permanent Pacemaker Device Placement Date:: 2015 Smoking Status: Former smoker - Past Family History Father Family Medical History: Coronary Artery Disease (CAD), Myocardial Infarction (MS) Additional Family Medical History / Comment(s): Father at age of 63 from MS. Mother Family Medical History: CVA/TIA Additional Family Medical History / Comment(s): Mother at age 65 from CVA. Brother(s) Family Medical History: Pulmonary Embolus Additional Family Medical History / Comment(s): Patient had 1 brother that at age 61 from pulmonary embolism. Sister(s) Family Medical History: No Reported History Additional Family Medical History / Comment(s): Patient had 3 sisters and one from back trouble. Daughter(s) Family Medical History: No Reported History Additional Family Medical History / Comment(s): Patient has one daughter with no major medical problems. Son(s) Family Medical History: No Reported History Additional Family Medical History / Comment(s): Patient has one son with no major medical problems. Medications and Allergies Home Medications Medication Instructions Recorded Confirmed Type Atorvastatin Calcium [Lipitor] 20 mg PO HS 05/04/14 07/19/21 History Lisinopril [Prinivil] 10 mg PO DAILY 12/14/15 07/19/21 History Tamsulosin [Flomax] 0.4 mg PO HS 09/25/16 07/19/21 History Aspirin EC [Ecotrin Low Dose] 81 mg PO DAILY 04/16/18 07/19/21 History Nitroglycerin Sl Tabs [Nitrostat] 0.4 mg SL Q5M PRN 04/16/18 07/15/21 History Carvedilol [Coreg] 12.5 mg PO BID #180 tablet 05/18/20 07/19/21 Rx Furosemide [Lasix] 40 mg PO DAILY 03/17/21 07/19/21 History Acetaminophen Tab [Tylenol] 650 mg PO Q6H PRN 03/30/21 07/19/21 History Ferrous Sulfate [Feosol] 325 mg PO DAILY 03/30/21 07/19/21 History Allergies Allergy/AdvReac Type Severity Reaction Status Date / Time No Known Allergies Allergy Verified 08/16/21 16:16 Surgical - Exam - General well developed, well nourished, no distress - Respiratory normal respiratory effort - Abdomen Abdomen: soft, non tender, no guarding, no rigid, no rebound - Genitourinary normal penis with no external lesions, testicles non-tender - Psychiatric oriented to time, oriented to person, oriented to place, speech is normal, memory intact Results - Imaging CT scan - pelvis: report reviewed Assessment and Plan (1) Unspecified hydronephrosis Status: Acute Code(s): N13.30 - UNSPECIFIED HYDRONEPHROSIS SNOMED Code(s): 03799417 Plan: Bilateral nephrostomy tube change. The patient is aware of potential risks, which include infection and loss of access.
[2021-10-12 13:26] VITALS: BMI 17.1
[~2021-10-18 09:30] MED LIST changes: +SODIUM CHLORIDE 0.9% 500 ML 500 ML IV ONE; +ceFAZolin 2 GM in SODIUM CHLORIDE 0.9% 100 ML IVPB PRN
[2021-10-18 10:23] LABS: Anisocytosis Slight; Basophils % (A) 0 %; Eosinophils # (A) 0.1 k/uL (0-0.7); Eosinophils % (A) 2 %; HCT 21.7 % (39.0-53.0); Hypochromasia Marked; Lymphocytes # (A) 0.9 k/uL (1.0-4.8); Lymphocytes % (A) 15 %; MCH 24.9 pg (25.0-35.0); MCHC 29.4 g/dL (31.0-37.0); MCV 84.7 fL (80.0-100.0); Mean Platelet Volume 7.9; Monocytes # (A) 0.4 k/uL (0-1.0); Monocytes % (A) 7 %; Neutrophils # (A) 4.6 k/uL (1.3-7.7); Neutrophils % (A) 76 %; Platelet Count 225 k/uL (150-450); RBC 2.57 m/uL (4.30-5.90); RDW 16.3 % (11.5-15.5); WBC 6.1 k/uL (3.8-10.6)
[2021-10-18 10:28] LABS: HGB 6.4 gm/dL (13.0-17.5)
[2021-10-18 10:42] LABS: Potassium 5.4 mmol/L (3.5-5.1)
[2021-10-18] MEDS ORDERED: LIDOCAINE 1% INJ 10MG/ML (20 ML MDV) SQ ONE (10:46)
[2021-10-18] MEDS ORDERED: IOPAMIDOL-370 50ML BTL INJ ONE (10:46)
--- NOTE | 2021-10-18 11:49 | IR ---
EXAMINATION TYPE: IR nephrostomy tube change DATE OF EXAM: 10/18/2021 COMPARISON: NONE HISTORY: Nephrostomy tube change FINDINGS: Maximal barrier technique was utilized. Patient's indwelling tubes were prepped and draped in a steri le fashion. Lidocaine was used for local anesthesia about the tubes. Gentle hand injection performed into the tubes under fluoroscopic observation. The left tube was cut and exchanged over a 0.035 inch angled Glidewire for a similar 8.5 German nephrostomy tube and fixed in place. Tube was attached to g [facility], inc[facility] drainage. No complication. Using similar technique right tube was cut and exchanged over the wire for similar tube, 0.035 inch a ngled Glidewire utilized, 8.[address] in [address]. Images were obtained verifying placement. P atient remains stable condition. No immediate application. 1 minute fluoroscopy time, 65 intraoperati ve images document the procedure IMPRESSION: Status post bilateral nephrostomy tube exchange, this procedure performed by the sonu krause.
[2021-10-18 17:45] VITALS: RESP 16
[2021-10-18 17:46] VITALS: BP 132/63; PULSE 60; TEMP 97.7
== END 2021-10-18 16:42 | disposition home or self-care (01) ==
LOC: OR 09:30
PROVIDERS: ATTEND Radiology Diagnostic Radiology
DX: Z46.6 Encounter for fitting and adjustment of urinary device (principal); N13.30 Unspecified hydronephrosis; C80.1 Malignant (primary) neoplasm, unspecified; D09.0 Carcinoma in situ of bladder; Z87.440 Personal history of urinary (tract) infections; Z20.822 Contact with and (suspected) exposure to COVID-19; Z85.51 Personal history of malignant neoplasm of bladder; I48.91 Unspecified atrial fibrillation; I25.10 Atherosclerotic heart disease of native coronary artery without angina pectoris; I13.0 Hypertensive heart and chronic kidney disease with heart failure and stage 1 through stage 4 chronic kidney disease, or unspecified chronic kidney disease; N18.30 Chronic kidney disease, stage 3 unspecified; I50.9 Heart failure, unspecified; Z87.891 Personal history of nicotine dependence; E78.5 Hyperlipidemia, unspecified; M19.90 Unspecified osteoarthritis, unspecified site; N42.9 Disorder of prostate, unspecified; Z87.01 Personal history of pneumonia (recurrent); G51.0 Bell's palsy; D64.9 Anemia, unspecified; R60.0 Localized edema; Z95.5 Presence of coronary angioplasty implant and graft; Z96.652 Presence of left artificial knee joint; Z90.49 Acquired absence of other specified parts of digestive tract; Z95.0 Presence of cardiac pacemaker; Z98.890 Other specified postprocedural states; Z82.49 Family history of ischemic heart disease and other diseases of the circulatory system; Z82.3 Family history of stroke; Z84.89 Family history of other specified conditions; Z79.82 Long term (current) use of aspirin; Z79.899 Other long term (current) drug therapy
CPT/HCPCS: 75984; 86900; 86901; 80048; 85025; 86850; 86920; 87635; 50435; C1729; C1769 ×2; P9016; J0690; Q9967